=== PATIENT | female | born 1940 | race Caucasian/White ===

== ENCOUNTER → 2018-04-07 08:32 | Outpatient (CLI) | payer MEDICARE, SELFPAY ==
[2015-10-01 14:08] VITALS: BMI 43.1
[2018-04-07 11:02] LABS: Hematocrit 36.8 % (37-47); Mean Corp Hgb Conc 29.9 g/gl (32-36); Mean Corpuscular Hgb 29.4 pg (27.0-32.0); Mean Corpuscular Volume 98.4 fL (81-99); Mean Platelet Vol. 9.8 fl (6.2-12.0); Platelet Count 188 K/mm3 (150-450); RBC Distribution Width CV 15.9 % (11.6-14.6); RBC Distribution Width SD 55.6 fl (35.1-43.9); Red Blood Count 3.74 M/mm3 (4.2-5.4); Scan Indicated on CBC? Y/N NO; White Blood Count 6.9 K/mm3 (4.4-11.0)
[2018-04-07 11:28] LABS: ALB/GLOB Ratio 0.5 RATIO (0.9-2.4); AST(SGOT) 47 U/L (15-37); Alanine Aminotransfer ALT/SGPT 23 U/L (13-56); Albumin, Serum 2.6 g/dL (3.2-5.0); Alkaline Phosphatase 72 U/L (45-117); Anion Gap 6 (5-15); BUN 7 mg/dL (7-18); BUN/Creat Ratio 12.2 RATIO (10-20); Calcium,Total 8.6 mg/dL (8.5-10.1); Chloride 100 mmol/L (98-107); Cholesterol 137 mg/dL (200); Creatinine, Serum 0.57 mg/dL (0.55-1.02); EST Glomerular Filtration Rate 108 mL/min (>60); Est Glom Filt Rate - Afr Amer 131 mL/min (>60); Globulin 5.3 g/dL (2.2-4.2); Glucose 110 mg/dL (74-106); High Density Lipoprotein 32 mg/dL; Magnesium 1.8 mg/dL (1.6-2.6); Protein, Total 7.9 g/dL (6.4-8.2); Sodium Level 144 mmol/L (136-145); T4 Free Direct 1.26 ng/dL (0.76-1.46); Thyroid Stim Hormone (TSH) 4.98 uIU/mL (0.358-3.74); Triglycerides 164 mg/dL; Very Low Density Lipoprotein 33 mg/dL (5-40)
[2018-04-07 12:02] LABS: Hemoglobin A1c 5.7 % (4.2-6.3)
--- OUTSIDE RECORDS SUMMARY | 2018-06-11 15:42 | XMS RPT_ITS ---
:1940 Author Organization OH[facility] Care Team Providers Name Role Phone GERARD GTZ ([facility]) Attending Unavailable TALAMPAS, DIEGO D Referring Unavailable TALAMPAS, DIEGO D Referring Unavailable JOSE SORIA ([facility]) Attending Unavailable JOSE SORIA ([facility]) Referring Unavailable JOSE SORIA ([facility]) Referring Unavailable MAGDALENA GRIFFIN ([facility]) Attending Unavailable TALAMPAS, DIEGO D Referring Unavailable Talampas, Diego Attending Unavailable Talampas, Diego Primary Care Unavailable PROBLEMS PROBLEMS DATE TYPE CONDITION / CODE ATTENDING STATUS SOURCE 04/07/2018 Unknown E11.9 - Type 2 Talampas, Diego Active [facility] diabetes mellitus [facility] without complications Hospital / E11.9(ICD-10) Repository 04/07/2018 Unknown E03.9 - Talampas, Diego Active [facility] Hypothyroidism, Community unspecified / Hospital E03.9(ICD-10) Repository 04/07/2018 Unknown E78.1 - Pure Talampas, Diego Active [facility] hyperglyceridemia / Community E78.1(ICD-10) Hospital Repository 11/03/2017 Active Encounter for NA Active [facility] screening for Clinic Main malignant neoplasm of [place] colon / Z12.11(ICD-10) Repository 10/25/2017 Active Abnormal results of NA Active [facility] liver function studies Clinic Main / R94.5(ICD-10) [place] Repository 10/25/2017 Active Unknown / UNK(Unknown) JOSE SORIA Active [facility] ([facility]) Clinic Main [place] Repository 10/05/2017 Active Other disorders of NA Active [place] plasma-protein [facility] Main metabolism, not [place] elsewhere classified / Repository E88.09(ICD-10) 01/01/2015 Active Essential (primary) NA Active [place] hypertension / Clinic Main I10(ICD-10) [place] Repository 08/09/2013 Active Neuralgia and NA Active [place] neuritis, unspecified Clinic Main / M79.2(ICD-10) [place] Repository 08/09/2013 Active Fibromyalgia / NA Active [place] M79.7(ICD-10) Clinic Main [place] Repository 12/29/2010 Active Pure hyperglyceridemia NA Active [place] / E78.1(ICD-10) Clinic Main [place] Repository 04/19/2017 Active Other fdc NA Active [place] (current) drug therapy Clinic Main / Z79.899(ICD-10) [place] Repository 04/19/2017 Active Type 2 diabetes NA Active [place] mellitus without Clinic Main complications / [place] E11.9(ICD-10) Repository PROCEDURES PROCEDURES No Procedure Records FoundRESULTS RESULTS CBC-COMPLETE BLOOD CNT Collected: 04/07/2018 Status: F Source: [place] NO DIFF 9:30 AM [facility] [place] REPOSITORY TYPE CODE TESTS RESULT OUT OF RANGE REFERENCE UNITS LAB L100.1000 4.4-11.0 K/mm3 Normal WBC 6.9 LAB L100.1200 4.2-5.4 M/mm3 Low RBC 3.74 LAB L100.1300 12.0-15.0 g/dl Low HGB 11.0 LAB L100.1400 37-47 % Low HCT 36.8 LAB L100.1500 81-99 fL Normal MCV 98.4 LAB L100.1600 27.0-32.0 pg Normal MCH 29.4 LAB L100.1700 32-36 g/gl Low MCHC 29.9 LAB L100.1810 11.6-14.6 % High RDW CV 15.9 LAB L100.1820 35.1-43.9 fl High RDW SD 55.6 LAB L100.1900 150-450 K/mm3 Normal PLT 188 LAB L100.2000 6.2-12.0 fl Normal MPV 9.8 Performed By: #### L100.0500 #### [facility] [address] [place], [address] COMPREHENSIVE METABOLIC Collected: 04/07/2018 Status: F Source: JONEL PROFIL 9:30 AM [facility] [place] REPOSITORY TYPE CODE TESTS RESULT OUT OF RANGE REFERENCE UNITS LAB L501.0100 74-106 mg/dL High GLU 110 Result Comment: Fasting Glucose result from 100 to 125 mg/dL suggests IMPAIRED HOMEOSTASIS per A.D.A. criteria. Please note revised GLUCOSE reference range effective 2017. LAB L501.1000 7-18 mg/dL Normal BUN 7 LAB L501.1100 0.55-1.02 mg/dL Normal CREAT,SERUM 0.57 Result Comment: The validity of the calculated GFR AND GFRAA in patients over 70 years has not been determined. Clinical correlation is essential. LAB L501.1110 >60 mL/min Normal EST GFR 108 Result Comment: Non- GFR Calc LAB L501.1115 >60 mL/min Normal EST GFR - AA 131 Result Comment: GFR Calc LAB L501.1300 10-20 RATIO Normal BUN/CRE 12.2 LAB L501.1500 6.4-8.2 g/dL T Normal PROT 7.9 LAB L501.1800 3.2-5.0 g/dL Low ALB 2.6 LAB L501.1950 2.2-4.2 g/dL High GLOB 5.3 LAB L501.2000 0.9-2.4 RATIO Low A/G 0.5 LAB L501.2200 8.5-10.1 mg/dL CA Normal 8.6 LAB L501.4100 15-37 U/L High AST 47 LAB L501.4305 45-117 U/L Normal ALK P 72 LAB L501.4405 13-56 U/L Normal ALT 23 LAB L501.4600 0.20-1.00 mg/dL T Normal BILI 0.30 LAB L501.5300 136-145 mmol/L NA Normal 144 LAB L501.5600 3.5-5.1 mmol/L K Normal 4.0 LAB L501.5900 98-107 mmol/L CL Normal 100 LAB L501.6100 21.0-32.0 mmol/L High CO2 38.0 LAB L501.6200 5-15 Normal GAP 6 Performed By: #### L500.4050, L500.4100, L501.5200, L501.9520, L506.0400 #### [facility] [address] [place], [address] LIPID PROFILE Collected: 04/07/2018 Status: F Source: JONEL 9:30 AM [facility] REPOSITORY TYPE CODE TESTS RESULT OUT OF RANGE REFERENCE UNITS LAB L501.4900 200 mg/dL Normal CHOL 137 Result Comment: <200 mg/dL Desirable 200-240 mg/dL Borderline >240 mg/dL High Risk LAB L501.5000 mg/dL Normal TRIG 164 Result Comment: The drugs N-Acetylcysteine and Metamizole may falsely depress this assay. Serum Triglycerides Reference Interval Normal <150 mg/dL Borderline high 150 - 199 mg/dL High 200 - 499 mg/dL Very High > or = 500 mg/dL LAB L501.6400 mg/dL Low HDL 32 Result Comment: The drugs N-Acetylcysteine and Metamizole may falsely depress this assay. Reference Range HDL <40 mg/dL Low HDL Cholesterol HDL >or= 60 mg/dL High HDL Cholesterol LAB L501.6500 0-130 mg/dL Normal LDL 72 LAB L501.6600 5-40 mg/dL Normal VLDL 33 Performed By: #### L500.4050, L500.4100, L501.5200, L501.9520, L506.0400 #### [facility] [address] [place], [place], [id number] MAGNESIUM Collected: 04/07/2018 Status: F Source: JONEL 9:30 AM [facility] [place] REPOSITORY TYPE CODE TESTS RESULT OUT OF RANGE REFERENCE UNITS LAB L501.5200 1.6-2.6 mg/dL Normal MG 1.8 Performed By: #### L500.4050, L500.4100, L501.5200, L501.9520, L506.0400 #### [facility] [address] [place], [place], [address] THYROID STIM HORMONE Collected: 04/07/2018 Status: F Source: JONEL (TSH) 9:30 AM [facility] [place] REPOSITORY TYPE CODE TESTS RESULT OUT OF RANGE REFERENCE UNITS LAB L501.9520 0.358-3.74 uIU/mL High TSH 4.98 Performed By: #### L500.4050, L500.4100, L501.5200, L501.9520, L506.0400 #### [facility] [address] [place], [address] T4 FREE DIRECT Collected: 04/07/2018 Status: F Source: KENT 9:30 AM [facility] [place] REPOSITORY TYPE CODE TESTS RESULT OUT OF RANGE REFERENCE UNITS LAB L506.0400 0.76-1.46 ng/dL Normal T4 FREE 1.26 DIRECT Performed By: #### L500.4050, L500.4100, L501.5200, L501.9520, L506.0400 #### [facility] [address] [place], [address] HEMOGLOBIN A1C Collected: 04/07/2018 Status: F Source: [place] 9:30 AM [facility] [place] REPOSITORY TYPE CODE TESTS RESULT OUT OF RANGE REFERENCE UNITS LAB L501.9985 4.2-6.3 % Normal HGB A1C 5.7 Performed By: #### L501.9985 #### [facility] [address] [place], [address] CNPTOUTREACH Observed: 03/28/2018 Status: COMPLETED Source: [place] 12:00 AM [facility] REPOSITORY Patient Outreach (FAMPST) ALEA ANDRADE ([id number]) 1940 F Date Time Provider Department 03/28/18 DIEGO CRISOSTOMO FAMPST During your visit today, we recorded the following information about you: Allergies As of Date: 03/28/2018 Noted Allergy Reaction ADHESIVE TAPE-SILICONES 05/26/2005 ADVAIR DISKUS (FLUTICASONE-SALMET*05/21/2014 14 - Other: See Comments Comments: vision difficulties; aggravated ocular migraines ASA (SALICYLATES) 04/16/2005 14 - Other: See Comments Comments: sensitive- she bleeds easily FENTANYL 03/18/2011 2 - Rash 9 - Itching Comments: Headaches, increased pain Roca Oxygen Products [Other] 02/25/2011 7 - Swelling Comments: Headaches IVORY SOAP (SOAP) 05/08/2013 14 - Other: See Comments Comments: Eyelid irritation and conjunctivitis (drainage and runny eyes) LATEX 11/08/2006 Comments: Sensitive PAXIL (PAROXETINE HCL) 04/19/2005 1 - Mental Status Change Comments: suicidal PENICILLINS 04/16/2005 2 - Rash Comments: generalized swelling PRILOSEC (OMEPRAZOLE) 08/23/2008 5 - Intolerance 8 - GI Upset Comments: Headache - pt. States okay since not red dye anymore RED DYE 08/19/2008 Comments: Gi upset, makes throat raw.( did not have allergy testing tho) SULFA (SULFONAMIDE ANTIBIOTICS) 01/15/2009 7 - Swelling Comments: Took bactrim without problem zithromycin [Other] 04/19/2005 Comments: swelling, rash Date Reviewed: 12/26/2017 Reviewed by: Eliza Connell LPN - Fully Assessed Visit Diagnosis:Medication management [Z79.899] Order(s):ALBUMIN/CREAT RATIO RND UR [SQUACR] Order #: [id number] FUTURE HGB A1C [UJHQU6F] Order #: [id number] FUTURE Prescriptions as of 03/28/2018 Sig: OXYCODONE 5 MG TABLET Take 1-2 tablets by mouth thr* HYDROCODONE 5 MG-ACETAMINOPHE* Take 1 tablet by mouth twice * LORAZEPAM 0.5 MG TABLET Take 1 tablet by mouth once d* NYSTATIN 100,000 UNIT/GRAM TO* Apply 1 application to affect* TRIAMCINOLONE ACETONIDE 0.1 %* Apply 1 application to affect* MUPIROCIN 2 % TOPICAL CREAM Apply to affected skin twice * GABAPENTIN 600 MG TABLET TAKE 1 AND 1/2 (ONE AND ONE-GAURANG* LEVOTHYROXINE 137 MCG TABLET Take 1 tablet by mouth daily * COMPOUNDED PRESCRIPTION For [facility]. Nubia* COMPOUNDED PRESCRIPTION For [facility]. Plea* CALCIUM CITRATE-VITAMIN D3 31* Take 1 tablet by mouth three * POTASSIUM CHLORIDE ER 10 MEQ * Take 2 tablets by mouth three* METFORMIN 500 MG TABLET Take 1 tablet by mouth twice * BLOOD SUGAR DIAGNOSTIC STRIPS Test Blood Sugars twice a day* BLOOD-GLUCOSE METER KIT Test Blood Sugars twice a day* LANCETS 33 GAUGE Test blood sugar(s) twice a d* SERTRALINE 100 MG TABLET Take 1 tablet by mouth twice * MOMETASONE-FORMOTEROL HFA 200* Inhale 2 Puffs as instructed * TRAZODONE 150 MG TABLET Take 1 tablet by mouth daily * OMEPRAZOLE 40 MG CAPSULE,DUNIA* Take 1 capsule by mouth once * LEVALBUTEROL HFA 45 MCG/ACTUA* Inhale 1-2 Puffs as instructe* BENZONATATE 100 MG CAPSULE Take 1 capsule by mouth three* LORATADINE-PSEUDOEPHEDRINE ER* Take 1 tablet by mouth once d* COMPOUNDED PRESCRIPTION Diabetic shoes Diagnoses: D* MISCELLANEOUS MEDICAL SUPPLY * Knee hi JONNY hose, Latex free * LISINOPRIL 2.5 MG TABLET Take 1 tablet by mouth once d* LEVALBUTEROL 1.25 MG/3 ML GILLIAN* Use 1 Ampule via nebulizer ev* CLINDAMYCIN PHOSPHATE 1 % TOP* Apply 1 application to affect* MOMETASONE 0.1 % TOPICAL CREAM Apply 1 application to affect* OXYBUTYNIN CHLORIDE 5 MG TABL* Take 1 tablet by mouth twice * COMPOUNDED PRESCRIPTION Please add humidifer to patie* FLUTICASONE 50 MCG/ACTUATION * Use 2 Sprays in each nostril * MULTIVITAL ORAL Take by mouth. SUPER B COMPLEX ORAL Take by mouth once daily. MOMETASONE-FORMOTEROL HFA 200* Inhale 2 Puffs as instructed * COMPOUNDED PRESCRIPTION Diabetic Shoes Diagnosis: * COMPOUNDED PRESCRIPTION Diabetic shoes Diagnosis: 25* FUROSEMIDE 80 MG TABLET Take 0.5-1 tablets by mouth o* GUAIFENESIN ER 600 MG TABLET,* Take 2 tablets by mouth twice* COMPOUNDED PRESCRIPTION Ketoprofen 5%, Amitriptyline * EPINEPHRINE 0.3 MG/0.3 ML INJ* Inject intramuscularly. USE * COMPOUNDED PRESCRIPTION NEBULIZER FOR HOME USE. DX: * COMPOUNDED PRESCRIPTION Firm Mattress for hospital be* * MULTIVITAMIN TABLET Take 1 tablet by mouth once d* * NIACIN ORAL Take 1 tablet by mouth once d* COMPOUNDED PRESCRIPTION Hospital bed ( MEGAN, DJD b* COMPOUNDED PRESCRIPTION For [facility]. Nubia* COMPOUNDED PRESCRIPTION Order for [facility]: Disco* COMPOUNDED PRESCRIPTION Add humidification to oxygen * COMPOUNDED PRESCRIPTION Heavy duty lift chair, ( pt w* * OMEGA-3 FATTY ACIDS 1,000 MG * Take 1,000 mg by mouth twice * COMPOUNDED PRESCRIPTION Scooter Needs new one since* COMPOUNDED PRESCRIPTION C-Flex nasal CPCP mask with h* Problem List As Of Date 03/28/2018 Noted Resolved Diabetes mellitus type 2, controlled, without c*INVALID FOR* More... Depressive disorder, not elsewhere classified [*INVALID FOR* More... MEGAN (obstructive sleep apnea) [G47.33] INVALID FOR* More... Essential hypertension [I10] INVALID FOR* More... Hypothyroidism [E03.9] INVALID FOR* More... Esophageal reflux [K21.9] INVALID FOR* More... Restless Legs Syndrome [G25.89] INVALID FOR* More... Allergic rhinitis, cause unspecified [J30.9] INVALID FOR* More... Primary osteoarthritis involving multiple joint*INVALID FOR* More... Rheumatoid arthritis [M06.9] INVALID FOR*12/26/2010 PMH - PAST MEDICAL HISTORY OF 08/09/2013 More... LUMBOSACRAL SPONDYLOSIS [M47.817] INVALID FOR* Morbid obesity [E66.01] INVALID FOR* More... Sprain of lumbar region [S33.5XXA] INVALID FOR*08/09/2013 Pure hyperglyceridemia [E78.1] More... Insomnia, unspecified [G47.00] INVALID FOR*08/09/2013 Venous stasis edema, legs [R60.9] More... Cellulitis and abscess of leg, except foot [L03* 08/09/2013 More... CLUSTER HEADACHE SYN NOS [G44.009] INVALID FOR* More... CONGENITAL PES PLANUS [Q66.50] INVALID FOR* Fibromyalgia [M79.7] More... Acute postoperative pain [G89.18] INVALID FOR*08/09/2013 More... Left video-assisted thoracoscopic surgery upper*INVALID FOR* More... D/C planning [Z71.89] INVALID FOR*08/09/2013 More... DVT prophylaxis [JUA9200] INVALID FOR*08/09/2013 More... R/o pressure ulcer on nose [L89.899] INVALID FOR*08/09/2013 More... 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 S/P lobectomy of lung, JOSE [Z90.2] INVALID FOR* Drug induced neutropenia [D70.2] INVALID FOR*05/20/2011 History of lung cancer [Z85.118] INVALID FOR* More... Neuropathic pain [M79.2] INVALID FOR* More... Pain in joint, lower leg [M25.569] INVALID FOR* Anxiety [F41.9] INVALID FOR* More... Insomnia [G47.00] INVALID FOR* More... Hypokalemia [E87.6] INVALID FOR*11/14/2013 Lung cancer (HCC) [C34.90] INVALID FOR* Acquired bilateral hammer toes [M20.41, M20.42] INVALID FOR* Neuralgia, neuritis, and radiculitis, unspecifi*INVALID FOR* Weakness [R53.1] INVALID FOR* Difficulty walking [R26.2] INVALID FOR* Encounter Status:Closed by [employer], PRODUSER on 04/12/18 PROGRESS Observed: 12/26/2017 Status: COMPLETED Source: [place] 3:50 PM [facility] REPOSITORY HNO ID: [id number] Author: Magdalena Bland) Elias Service: (none) Author Type: Nurse Specialist Type: Progress Notes Filed: 12/26/2017 4:15 PM Note Text: OUTPATIENT VISIT DATE December 26, 2017 OUTPATIENT VISIT TYPE ESTABLISHED PRIMARY CARE PHYSICIAN: Diego Crisostomo MD CHIEF COMPLAINT: Patient presents with: F/U 3 Month Oxygen Imm/Inj: Flu Vaccine History of Present Illness: Alea Andrade is a 77 year old female who was last seen 10/2017 in . She has been seen in the past for ACTIVE PROBLEM LIST Diabetes Mellitus Type 2, Controlled, Without Complications (Hcc) Depressive Disorder, Not Elsewhere Classified Megan (Obstructive Sleep Apnea) Essential Hypertension Hypothyroidism Esophageal Reflux Restless Legs Syndrome Allergic Rhinitis, Cause Unspecified Primary Osteoarthritis Involving Multiple Joints Lumbosacral Spondylosis Without Myelopathy Morbid Obesity (Hcc) Pure Hyperglyceridemia Venous stasis edema, legs Cluster Headache Syndrome, Unspecified Congenital Pes Planus Fibromyalgia Left video-assisted thoracoscopic surgery upper lobectomy, lymphadenectomy Secondary and Unspecified 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 Presents today for follow up of hypoxia. She is using 3 LNC 11/10. Since the last visit, she states that she's been her usual state of health. She reports limited mobility. Her son helps her with all daily activities. She has a hospital bed that she states that for most of the day. She reports being able to get up to a chair with assistance but takes about 30 minutes and she often avoids doing this due to all of the effort required. Very difficult for her to do much more than transfer due to problems with her feet. She reports that wo family members claims sorter her to help get her to her appointment today. She reports shortness of breath with any exertion at all. Currently without cough.. Becomes hypoxic when she removes oxygen at rest for more than a couple of minutes. , lips become blue at home. No recent hospital or ED visits. No new medical problems or medications. Able to obtain medications. No problems with taking medications or note side effects. PAST MEDICAL HISTORY Diagnosis Date - Allergic rhinitis, cause unspecified 04/20/2005 - Asthma - Cellulitis and abscess of leg, except foot Recurrent episodes of cellulitis related to venous stasis - COPD (chronic obstructive pulmonary disease) ([facility]) - Depressive disorder, not elsewhere classified 04/20/2005 - Diabetes mellitus without mention of complication Diabetes mellitus - Esophageal reflux 04/20/2005 - Fibromyalgia - Generalized osteoarthrosis, unspecified site 04/20/2005 - Oxygen dependent - Peptic ulcer, unspecified site, unspecified as acute or chronic, without mention of hemorrhage, perforation, or obstruction 1997 bleeding ulcers 1997 - PMH - PAST MEDICAL HISTORY OF narcolepsy and sleep apnea--recent sleep study 2009; CPAP at 13 (Dr. Mackenzie) - Pure hyperglyceridemia Slightly elevated TG; low HDL - Restless Legs Syndrome 04/20/2005 - Rheumatoid arthritis(714.0) 04/20/2005 - S/P lobectomy of lung 01/25/2011 - Type II or unspecified type diabetes mellitus without mention of complication, not stated as uncontrolled 04/20/2005 - Unspecified asthma(493.90) 04/20/2005 - Unspecified essential hypertension 04/20/2005 - Unspecified hypothyroidism 04/20/2005 - Venous stasis edema, legs PAST SURGICAL HISTORY Procedure Laterality Date - APPENDECTOMY 1960 - PAST SURGICAL HISTORY OF 1974 uterus and one ovary removed - REMOVAL ADENOIDS,PRIMARY,<12 Y/O Adenoidectomy - REMOVAL OF TONSILS,<12 Y/O Tonsillectomy - REPAIR UMBILICAL LEX,<5Y/O,REDUC 1992 Hernia repair, umbilical FAMILY HISTORY Problem Relation Age of Onset - Alzheimer's Disease Mother - Diabetes Paternal Grandmother - Cervical Cancer Sister - Diabetes Sister Social History Substance Use Topics - Smoking status: Former Smoker Packs/day: 1.50 Years: 18.00 Types: Cigarettes Quit date: 03/21/1980 - Smokeless tobacco: Never Used - Alcohol use No ALLERGIES: ALLERGIES Allergen Reactions - Adhesive Tape-Silic* - Advair Diskus [Flut* Other: See Comments vision difficulties; aggravated ocular migraines - Asa [Salicylates] Other: See Comments sensitive- she bleeds easily - Fentanyl Rash, Itching Headaches, increased pain - Roca Oxygen Produ* Swelling Headaches - Ivory Soap [Soap] Other: See Comments Eyelid irritation and conjunctivitis (drainage and runny eyes) - Latex Sensitive - Paxil [Paroxetine H* Mental Status Change suicidal - Penicillins Rash generalized swelling - Prilosec [Omeprazol* Intolerance, GI Upset Headache - pt. States okay since not red dye anymore - Red Dye Gi upset, makes throat raw.( did not have allergy testing tho) - Sulfa (Sulfonamide * Swelling Took bactrim without problem - Zithromycin [Other] swelling, rash MEDICATIONS LORazepam (ATIVAN) 0.5 mg tab Take 1 tablet by mouth once daily as needed (anxiety) for up to 30 days. oxyCODONE IR (ROXICODONE) 5 mg immediate release tablet Take 1-2 tablets by mouth three times daily as needed for Pain for up to 30 days.Earliest Fill Date: 12/19/17 HYDROcodone-acetaminophen (NORCO) 5-325 mg per tablet Take 1 tablet by mouth twice daily as needed for up to 30 days. For moderate pain (not severe to need oxycodone).Earliest Fill Date: 12/19/17 mupirocin (BACTROBAN) 2 % cream Apply to affected skin twice daily (May substitute with generic equivalent.; ointment can be given if cream note covered) triamcinolone acetonide (KENALOG) 0.1 % cream Apply 1 application to affected area three times daily. (80 gram tube) levothyroxine (SYNTHROID) 137 mcg tablet Take 1 tablet by mouth daily before breakfast. nystatin (MYCOSTATIN) powder Apply 1 application to affected area four times daily. COMPOUNDED PRESCRIPTION For [facility]. Patient needs large oxygen tanks for within the home, and portable tanks for when she is out. Pulse ox 90% on 3L in office. Dx: s/p lobectomy of lung JOSE v45.89, lung cancer 162.3. COMPOUNDED PRESCRIPTION For [facility]. Please dispense all attachment supplies for oxygen. gabapentin (NEURONTIN) 600 mg tablet TAKE 1 AND 1/2 (ONE AND ONE-HALF) TABLETS BY MOUTH THREE TIMES DAILY Calcium Citrate-Vitamin D3 (CITRACAL+D) 315-250 mg-unit tab Take 1 tablet by mouth three times daily with meals. potassium chloride (K-TAB) 10 mEq tablet Take 2 tablets by mouth three times daily. As directed metFORMIN (GLUCOPHAGE) 500 mg tablet Take 1 tablet by mouth twice daily. blood sugar diagnostic (ONETOUCH ULTRA TEST) test strip Test Blood Sugars twice a day DX: E11.9 Blood-Glucose Meter (ONETOUCH ULTRAMINI) monitoring kit Test Blood Sugars twice a day DX: E11.9 lancets (ONE TOUCH DELICA) 33 gauge misc Test blood sugar(s) twice a day. Dx: Type 2 DM - Controlled E11.9 Insulin: No sertraline (ZOLOFT) 100 mg tablet Take 1 tablet by mouth twice daily. traZODone (DESYREL) 150 mg tablet Take 1 tablet by mouth daily at bedtime. Omeprazole 40 mg capsule Take 1 capsule by mouth once daily. levalbuterol tartrate HFA (XOPENEX HFA) 45 mcg/actuation inhaler Inhale 1-2 Puffs as instructed every 4 hours as needed. benzonatate (TESSALON PERLE) 100 mg capsule Take 1 capsule by mouth three times daily as needed. loratadine-pseudoephedrine ER (LORATA-D) 10-240 mg Tb24 Take 1 tablet by mouth once daily as needed. COMPOUNDED PRESCRIPTION Diabetic shoes Diagnoses: DM foot deformity and poor circulation. M21.969, R09.89. Dispense 1 pair of [facility] Knee hi JONNY hose, Latex free (R60.9) Venous stasis edema, legs lisinopril 2.5 mg tablet Take 1 tablet by mouth once daily. levalbuterol (XOPENEX) 1.25 mg/3 mL nebulizer solution Use 1 Ampule via nebulizer every 4 hours as needed for Wheezing/Shortness of Breath. clindamycin (CLEOCIN) 1 % external solution Apply 1 application to affected area four times daily as needed. Dispense 1 bottle, not 1ml mometasone (ELOCON) 0.1 % cream Apply 1 application to affected area once daily. For scalp; Rinse the next morning after applying at bedtime. oxybutynin (DITROPAN) 5 mg tablet Take 1 tablet by mouth twice daily. COMPOUNDED PRESCRIPTION Please add humidifer to patient's oxygen. Dx; z99.81, z90.2, j44.9 fluticasone (FLONASE) 50 mcg/actuation nasal spray Use 2 Sprays in each nostril once daily. Rinse mouth after use. FA/MV,CA,IRON,MIN/LYCOPENE/LUT (MULTIVITAL ORAL) Take by mouth. mometasone-formoterol (DULERA) 200-5 mcg/actuation inhaler Inhale 2 Puffs as instructed twice daily. COMPOUNDED PRESCRIPTION Diabetic Shoes Diagnosis: DM type 2 250.00, Pes Planus 754.61, Neuropathic pain 729.2, Hammer toes 735.4 COMPOUNDED PRESCRIPTION Diabetic shoes Diagnosis: 250.00 furosemide (LASIX) 80 mg tablet Take 0.5-1 tablets by mouth once daily. as directed (last RX November 2013) guaiFENesin 600 mg 12 hr tablet Take 2 tablets by mouth twice daily as needed for Cold/Allergy Symptoms. COMPOUNDED PRESCRIPTION Ketoprofen 5%, Amitriptyline 2%, Gabapentin 2%, Lidocaine 5% EPINEPHrine (EPIPEN) 0.3 mg/0.3 mL (1:1,000) PnIj Inject intramuscularly. USE DIRECTED FOR ALLERGIC REACTION. SEEK EMERGENT MEDICAL CARE IMMEDIATELY AFTER USE. COMPOUNDED PRESCRIPTION NEBULIZER FOR HOME USE. DX: 493.90 asthma, h/o lung cancer, s/p lung lobectomyUse as directed COMPOUNDED PRESCRIPTION Firm Mattress for hospital bedDiagnoses: 782.3 Venous stasis edema, legs; V45.89 S/P lobectomy of lung, JOSE COMPOUNDED PRESCRIPTION Hospital bed ( MEGAN, DJD back, fibromyalgia) 729.1, 715.00, 721.3, 327.3)Would like 2 half rails on bed. wt is 316# COMPOUNDED PRESCRIPTION For [facility]. Patient needs large oxygen tanks for within the home, and portable tanks for when she is out. Dx: s/p lobectomy of lung JOSE v45.89, lung cancer 162.3. COMPOUNDED PRESCRIPTION Order for [facility]: Discontinue liquid O2 COMPOUNDED PRESCRIPTION Add humidification to oxygen through the concentratorDiagnosis: COMPOUNDED PRESCRIPTION Heavy duty lift chair, ( pt wt is 321 # ) 6 feet tall. ( 714.0 rheumatoid arthritis, 729.1 Fibromyalgia, having lung surgery and will need to sit upright post operatively, currently short of breath, ) COMPOUNDED PRESCRIPTION Scooter Needs new one since other one needs replaced. Diagnoses: 714.0,721.3,278.01,715.00 COMPOUNDED PRESCRIPTION C-Flex nasal CPCP mask with head gear and tubing supplies. zolpidem (AMBIEN) 10 mg tab TAKE 1 TABLET EVERY DAY AT BEDTIME NEEDED for insomnia. mometasone-formoterol (DULERA) 200-5 mcg/actuation inhaler Inhale 2 Puffs as instructed twice daily. VITAMIN B COMPLEX (SUPER B COMPLEX ORAL) Take by mouth once daily. multivitamin tablet Take 1 tablet by mouth once daily. NIACIN ORAL Take 1 tablet by mouth once daily. omega-3 fatty acids 1,000 mg ORAL Cap Take 1,000 mg by mouth twice daily. REVIEW OF SYSTEMS: GENERAL: Negative for: Weight loss or gain, Fever or Chills, Weakness and Sleep difficulties. Physical Examination: BP 126/60 Pulse 96 SpO2 87% at rest on room air BP w/Orthostatic Vitals Date and Time Orthostatic BP Orthostatic Pulse BP Pulse BP Position BP Site BP Cuff Size 12/26/17 1534 -- -- 126/60 -- Sitting Left Arm Large Adult 12/26/17 1528 -- -- 152/80 96 Sitting Left Arm Large Adult General appearance: Well appearing, alert, SOB when oxygen is removed, obese, well-hydrated, well nourished. Seated in wheelchair, has 3LNC Skin: Skin color, texture, turgor normal, no suspicious rashes or lesions Lungs: Lung sounds are decreased but no wheezing, rhonchi, rales appreciated on exam Heart: RRR without murmur, gallop, or rubs. Reviewed chart, outside records, tests I personally interviewed, confirmed and edited the above information if obtained by others. TESTING: Glucose (mg/dL) Date Value 10/05/2017 147 Potassium (mmol/L) Date Value 10/05/2017 4.6 Sodium (mmol/L) Date Value 10/05/2017 140 Chloride (mmol/L) Date Value 10/05/2017 92 CO2 (mmol/L) Date Value 10/05/2017 30 Creatinine (mg/dL) Date Value 10/05/2017 0.65 BUN (mg/dL) Date Value 10/05/2017 8 Anion Gap (mmol/L) Date Value 10/05/2017 18 Calcium (mg/dL) Date Value 10/05/2017 10.2 Glucose (mg/dL) Date Value 10/05/2017 147 Potassium (mmol/L) Date Value 10/05/2017 4.6 Sodium (mmol/L) Date Value 10/05/2017 140 Chloride (mmol/L) Date Value 10/05/2017 92 CO2 (mmol/L) Date Value 10/05/2017 30 Creatinine (mg/dL) Date Value 10/05/2017 0.65 BUN (mg/dL) Date Value 10/05/2017 8 Anion Gap (mmol/L) Date Value 10/05/2017 18 Calcium (mg/dL) Date Value 10/05/2017 10.2 Protein, Total (g/dL) Date Value 10/25/2017 7.7 Albumin (g/dL) Date Value 10/25/2017 3.4 Bilirubin, Total (mg/dL) Date Value 10/25/2017 0.2 Alkaline Phosphatase (U/L) Date Value 10/25/2017 66 AST (U/L) Date Value 10/25/2017 46 ALT (U/L) Date Value 10/25/2017 26 Hemoglobin (g/dL) Date Value 07/26/2016 11.9 Hematocrit (%) Date Value 07/26/2016 39.0 WBC (k/uL) Date Value 07/26/2016 8.49 Cholesterol, Total (mg/dL) Date Value 10/05/2017 153 HDL Cholesterol (mg/dL) Date Value 10/05/2017 39 LDL Cholesterol (mg/dL) Date Value 10/05/2017 79 Triglyceride (mg/dL) Date Value 10/05/2017 175 Hemoglobin A1C Date Value Ref Range Status 10/05/2017 5.7 (H) 4.3 - 5.6 % Final 04/19/2017 5.9 (H) 4.3 - 5.6 % Final 12/06/2016 Test sent to [facility]. 4.0 - 6.0 % Final Comment: Account Credited HIDE 07/26/2016 5.8 (H) 4.3 - 5.6 % Final Comment: [place] [employer] guidelines indicate that patients with HgbA1c in the range 5.7-6.4% are at increased risk for development of diabetes, and intervention by lifestyle modification may be beneficial. HgbA1c greater or equal to 6.5% is considered diagnostic of diabetes. 11/26/2015 5.8 (H) 4.3 - 5.6 % Final Comment: [place] [employer] guidelines indicate that patients with HgbA1c in the range 5.7-6.4% are at increased risk for development of diabetes, and intervention by lifestyle modification may be beneficial. HgbA1c greater or equal to 6.5% is considered diagnostic of diabetes. Ejection Fraction - Result: 60 % Date: 12/08/2010 Time: 15:04:00 IMPRESSION: Ms. Andrade is a 77 year old woman with history of lung cancer, prior lobectomy, severe restrictive lung disease who presents for hypoxia follow up. She continues to require oxygen at rest, at 87%spO2 at rest on room tiara in office today. After my examination and review of data, I make the following recommendations. PLAN AND RECOMMENDATIONS: ASSESSMENT/PLAN: 1. Need for vaccination - ICD9: V05.9, ICD10: Z23 (primary diagnosis) - INFLUENZA SEASONAL HIGH DOSE AGE 65+ 2. History of lung cancer - ICD9: V10.11, ICD10: Z85.118 3. S/P lobectomy of lung - ICD9: V45.89, ICD10: Z90.2 4. Restrictive lung disease - ICD9: 518.89, ICD10: J98.4 5. Severe persistent asthma without complication - ICD9: 493.90, ICD10: J45.50 Continue with medications unchanged Continue with 3 L oxygen nasal cannula unchanged Will send copy of note to [facility] today per request. Advised to go to ER if develops chest pain, shortness of breath, or severe worsening of symptoms. Discussed risks, benefits, alternatives, and potential side effects of medications. Ms. Andrade expressed understanding and agreed with the plan. Magdalena Griffin APRN.CHUCKING MACHINE SET UP OPERATOR PROGRESS Observed: 12/26/2017 Status: COMPLETED Source: [place] 3:[address] [facility] [place] REPOSITORY O ID: [id number] Author: Eliza Connell LPN Service: (none) Author Type: (none) Type: Progress Notes Filed: 12/26/2017 4:15 PM Note Text: 77 year old female here for INACTIVATED INFLUENZA VACCINE. Season Patient is identified by name and date of : Yes [] CONTRAINDICATIONS color enhanced section Age less than 6 months? No Allergy to eggs, chicken, chicken feathers, or chicken dander? No Allergy to thimerosal (a preservative) or formaldehyde, gelatin? No History of severe reaction to any vaccine component or a previous dose of influenza vaccination? No History of Guillain-Centerbrook Syndrome within 6 weeks after a previous influenza vaccine? No Patient is not moderately or severely ill? No Current temperature greater or equal to 100.4F? No History of Bone Marrow Transplant prior 6 months or solid organ transplant in the past 3 months ? No History of fainting after a prior injection or medical procedure? No- ? If patient has fainted in the past, the CDC recommends sitting or lying down for 15 minutes after the vaccination. [] VERIFICATION color enhanced section Was the answer Yes for any of the above contraindications? No contraindications present. Acceptable to proceed with vaccine. Patient/guardian agrees the above answers are true to the best of their knowledge? Yes Flu vaccine information sheet given? Yes See immunization activity in [facility] for details of immunizations adminstered today. Patient age: [age] year old For The Flu Season 6-35 months old: Fluzone 0.25 ml - IM (Preservative Free) 3 years of age: Fluzone 0.5 ml - IM (Preservative Free) 3 years and older: Fluzone 0.5 ml- IM-(with Preservatives) 65+ years old: 2-49 years old Fluzone High-Dose 0.5 ml - IM (Preservative Free) FLUMIST- intranasal REMEMBER: If patient is less than 9 years of age and this is the first vaccine of Influenza to be received in any flu season, they should receive a second dose in one months time. CNOV Observed: 12/26/2017 Status: COMPLETED Source: [place] 3:00 PM [facility] REPOSITORY Office Visit (INTMWS) ALEA ANDRADE ([id number]) 1940 F Date Time Provider Department 12/26/17 3:00 PM MAGDALENA GRIFFIN (CHUCKING MACHINE SET UP OPERATOR) INTMWS During your visit today, we recorded the following information about you: Pulse Blood pressure 96/minute 126/60 Eliza Connell GINGER 12/26/2017 4:15 PM Signed 77 year old female here for INACTIVATED INFLUENZA VACCINE. [id number] Season Patient is identified by name and date of : Yes [] CONTRAINDICATIONS color enhanced section Age less than 6 months? No Allergy to eggs, chicken, chicken feathers, or chicken dander? No Allergy to thimerosal (a preservative) or formaldehyde, gelatin? No History of severe reaction to any vaccine component or a previous dose of influenza vaccination? No History of Guillain-Center[place] Syndrome within 6 weeks after a previous influenza vaccine? No Patient is not moderately or severely ill? No Current temperature greater or equal to 100.4F? No History of Bone Marrow Transplant prior 6 months or solid organ transplant in the past 3 months ? No History of fainting after a prior injection or medical procedure? No- ? If patient has fainted in the past, the CDC recommends sitting or lying down for 15 minutes after the vaccination. [] VERIFICATION color enhanced section Was the answer Yes for any of the above contraindications? No contraindications present. Acceptable to proceed with vaccine. Patient/guardian agrees the above answers are true to the best of their knowledge? Yes Flu vaccine information sheet given? Yes See immunization activity in [facility] for details of immunizations adminstered today. Patient age: [age] year old For The [id number] Flu Season 6-35 months old: Fluzone 0.25 ml - IM (Preservative Free) 3 years of age: Fluzone 0.5 ml - IM (Preservative Free) 3 years and older: Fluzone 0.5 ml- IM-(with Preservatives) 65+ years old: 2-49 years old Fluzone High-Dose 0.5 ml - IM (Preservative Free) FLUMIST- intranasal REMEMBER: If patient is less than 9 years of age and this is the first vaccine of Influenza to be received in any flu season, they should receive a second dose in one months time. Magdalena Griffin APRN.CHUCKING MACHINE SET UP OPERATOR 12/26/2017 4:15 PM Signed OUTPATIENT VISIT DATE December 26, 2017 OUTPATIENT VISIT TYPE ESTABLISHED PRIMARY CARE PHYSICIAN: Diego Crisostomo MD CHIEF COMPLAINT: Patient presents with: F/U 3 Month Oxygen Imm/Inj: Flu Vaccine History of Present Illness: Alea Andrade is a 77 year old female who was last seen 10/2017 in . She has been seen in the past for ACTIVE PROBLEM LIST Diabetes Mellitus Type 2, Controlled, Without Complications (Hcc) Depressive Disorder, Not Elsewhere Classified Megan (Obstructive Sleep Apnea) Essential Hypertension Hypothyroidism Esophageal Reflux Restless Legs Syndrome Allergic Rhinitis, Cause Unspecified Primary Osteoarthritis Involving Multiple Joints Lumbosacral Spondylosis Without Myelopathy Morbid Obesity (Hcc) Pure Hyperglyceridemia Venous stasis edema, legs Cluster Headache Syndrome, Unspecified Congenital Pes Planus Fibromyalgia Left video-assisted thoracoscopic surgery upper lobectomy, lymphadenectomy Secondary and Unspecified 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 Presents today for follow up of hypoxia. She is using 3 LNC 11/10. Since the last visit, she states that she's been her usual state of health. She reports limited mobility. Her son helps her with all daily activities. She has a hospital bed that she states that for most of the day. She reports being able to get up to a chair with assistance but takes about 30 minutes and she often avoids doing this due to all of the effort required. Very difficult for her to do much more than transfer due to problems with her feet. She reports that wo family members claims sorter her to help get her to her appointment today. She reports shortness of breath with any exertion at all. Currently without cough.. Becomes hypoxic when she removes oxygen at rest for more than a couple of minutes. , lips become blue at home. No recent hospital or ED visits. No new medical problems or medications. Able to obtain medications. No problems with taking medications or note side effects. PAST MEDICAL HISTORY Diagnosis Date - Allergic rhinitis, cause unspecified 04/20/2005 - Asthma - Cellulitis and abscess of leg, except foot Recurrent episodes of cellulitis related to venous stasis - COPD (chronic obstructive pulmonary disease) ([facility]) - Depressive disorder, not elsewhere classified 04/20/2005 - Diabetes mellitus without mention of complication Diabetes mellitus - Esophageal reflux 04/20/2005 - Fibromyalgia - Generalized osteoarthrosis, unspecified site 04/20/2005 - Oxygen dependent - Peptic ulcer, unspecified site, unspecified as acute or chronic, without mention of hemorrhage, perforation, or obstruction 1997 bleeding ulcers 1997 - PMH - PAST MEDICAL HISTORY OF narcolepsy and sleep apnea--recent sleep study 2009; CPAP at 13 (Dr. Mackenzie) - Pure hyperglyceridemia Slightly elevated TG; low HDL - Restless Legs Syndrome 04/20/2005 - Rheumatoid arthritis(714.0) 04/20/2005 - S/P lobectomy of lung 01/25/2011 - Type II or unspecified type diabetes mellitus without mention of complication, not stated as uncontrolled 04/20/2005 - Unspecified asthma(493.90) 04/20/2005 - Unspecified essential hypertension 04/20/2005 - Unspecified hypothyroidism 04/20/2005 - Venous stasis edema, legs PAST SURGICAL HISTORY Procedure Laterality Date - APPENDECTOMY 1960 - PAST SURGICAL HISTORY OF 1973 uterus and one ovary removed - REMOVAL ADENOIDS,PRIMARY,<12 Y/O Adenoidectomy - REMOVAL OF TONSILS,<12 Y/O Tonsillectomy - REPAIR UMBILICAL LEX,<5Y/O,REDUC 1992 Hernia repair, umbilical FAMILY HISTORY Problem Relation Age of Onset - Alzheimer's Disease Mother - Diabetes Paternal Grandmother - Cervical Cancer Sister - Diabetes Sister Social History Substance Use Topics - Smoking status: Former Smoker Packs/day: 1.50 Years: 18.00 Types: Cigarettes Quit date: 03/21/1980 - Smokeless tobacco: Never Used - Alcohol use No ALLERGIES: ALLERGIES Allergen Reactions - Adhesive Tape-Silic* - Advair Diskus [Flut* Other: See Comments vision difficulties; aggravated ocular migraines - Asa [Salicylates] Other: See Comments sensitive- she bleeds easily - Fentanyl Rash, Itching Headaches, increased pain - Roca Oxygen Produ* Swelling Headaches - Ivory Soap [Soap] Other: See Comments Eyelid irritation and conjunctivitis (drainage and runny eyes) - Latex Sensitive - Paxil [Paroxetine H* Mental Status Change suicidal - Penicillins Rash generalized swelling - Prilosec [Omeprazol* Intolerance, GI Upset Headache - pt. States okay since not red dye anymore - Red Dye Gi upset, makes throat raw.( did not have allergy testing tho) - Sulfa (Sulfonamide * Swelling Took bactrim without problem - Zithromycin [Other] swelling, rash MEDICATIONS LORazepam (ATIVAN) 0.5 mg tab Take 1 tablet by mouth once daily as needed (anxiety) for up to 30 days. oxyCODONE IR (ROXICODONE) 5 mg immediate release tablet Take 1-2 tablets by mouth three times daily as needed for Pain for up to 30 days.Earliest Fill Date: 12/19/17 HYDROcodone-acetaminophen (NORCO) 5-325 mg per tablet Take 1 tablet by mouth twice daily as needed for up to 30 days. For moderate pain (not severe to need oxycodone).Earliest Fill Date: 12/19/17 mupirocin (BACTROBAN) 2 % cream Apply to affected skin twice daily (May substitute with generic equivalent.; ointment can be given if cream note covered) triamcinolone acetonide (KENALOG) 0.1 % cream Apply 1 application to affected area three times daily. (80 gram tube) levothyroxine (SYNTHROID) 137 mcg tablet Take 1 tablet by mouth daily before breakfast. nystatin (MYCOSTATIN) powder Apply 1 application to affected area four times daily. COMPOUNDED PRESCRIPTION [facility]. Patient needs large oxygen tanks for within the home, and portable tanks for when she is out. Pulse ox 90% on 3L in office. Dx: s/p lobectomy of lung JOSE v45.89, lung cancer 162.3. COMPOUNDED PRESCRIPTION [facility]. Please dispense all attachment supplies for oxygen. gabapentin (NEURONTIN) 600 mg tablet TAKE 1 AND 1/2 (ONE AND ONE-HALF) TABLETS BY MOUTH THREE TIMES DAILY Calcium Citrate-Vitamin D3 (CITRACAL+D) 315-250 mg-unit tab Take 1 tablet by mouth three times daily with meals. potassium chloride (K-TAB) 10 mEq tablet Take 2 tablets by mouth three times daily. As directed metFORMIN (GLUCOPHAGE) 500 mg tablet Take 1 tablet by mouth twice daily. blood sugar diagnostic (ONETOUCH ULTRA TEST) test strip Test Blood Sugars twice a day DX: E11.9 Blood-Glucose Meter (ONETOUCH ULTRAMINI) monitoring kit Test Blood Sugars twice a day DX: E11.9 lancets (ONE TOUCH DELICA) 33 gauge misc Test blood sugar(s) twice a day. Dx: Type 2 DM - Controlled E11.9 Insulin: No sertraline (ZOLOFT) 100 mg tablet Take 1 tablet by mouth twice daily. traZODone (DESYREL) 150 mg tablet Take 1 tablet by mouth daily at bedtime. Omeprazole 40 mg capsule Take 1 capsule by mouth once daily. levalbuterol tartrate HFA (XOPENEX HFA) 45 mcg/actuation inhaler Inhale 1-2 Puffs as instructed every 4 hours as needed. benzonatate (TESSALON PERLE) 100 mg capsule Take 1 capsule by mouth three times daily as needed. loratadine-pseudoephedrine ER (LORATA-D) 10-240 mg Tb24 Take 1 tablet by mouth once daily as needed. COMPOUNDED PRESCRIPTION Diabetic shoes Diagnoses: DM foot deformity and poor circulation. M21.969, R09.89. Dispense 1 pair of [facility] Knee hi JONNY hose, Latex free (R60.9) Venous stasis edema, legs lisinopril 2.5 mg tablet Take 1 tablet by mouth once daily. levalbuterol (XOPENEX) 1.25 mg/3 mL nebulizer solution Use 1 Ampule via nebulizer every 4 hours as needed for Wheezing/Shortness of Breath. clindamycin (CLEOCIN) 1 % external solution Apply 1 application to affected area four times daily as needed. Dispense 1 bottle, not 1ml mometasone (ELOCON) 0.1 % cream Apply 1 application to affected area once daily. For scalp; Rinse the next morning after applying at bedtime. oxybutynin (DITROPAN) 5 mg tablet Take 1 tablet by mouth twice daily. COMPOUNDED PRESCRIPTION Please add humidifer to patient's oxygen. Dx; z99.81, z90.2, j44.9 fluticasone (FLONASE) 50 mcg/actuation nasal spray Use 2 Sprays in each nostril once daily. Rinse mouth after use. FA/MV,CA,IRON,MIN/LYCOPENE/LUT (MULTIVITAL ORAL) Take by mouth. mometasone-formoterol (DULERA) 200-5 mcg/actuation inhaler Inhale 2 Puffs as instructed twice daily. COMPOUNDED PRESCRIPTION Diabetic Shoes Diagnosis: DM type 2 250.00, Pes Planus 754.61, Neuropathic pain 729.2, Hammer toes 735.4 COMPOUNDED PRESCRIPTION Diabetic shoes Diagnosis: 250.00 furosemide (LASIX) 80 mg tablet Take 0.5-1 tablets by mouth once daily. as directed (last RX November 2013) guaiFENesin 600 mg 12 hr tablet Take 2 tablets by mouth twice daily as needed for Cold/Allergy Symptoms. COMPOUNDED PRESCRIPTION Ketoprofen 5%, Amitriptyline 2%, Gabapentin 2%, Lidocaine 5% EPINEPHrine (EPIPEN) 0.3 mg/0.3 mL (1:1,000) PnIj Inject intramuscularly. USE DIRECTED FOR ALLERGIC REACTION. SEEK EMERGENT MEDICAL CARE IMMEDIATELY AFTER USE. COMPOUNDED PRESCRIPTION NEBULIZER FOR HOME USE. DX: 493.90 asthma, h/o lung cancer, s/p lung lobectomyUse as directed COMPOUNDED PRESCRIPTION Firm Mattress for hospital bedDiagnoses: 782.3 Venous stasis edema, legs; V45.89 S/P lobectomy of lung, JOSE COMPOUNDED PRESCRIPTION Hospital bed ( MEGAN, DJD back, fibromyalgia) 729.1, 715.00, 721.3, 327.3)Would like 2 half rails on bed. wt is 316# COMPOUNDED PRESCRIPTION For [facility]. Patient needs large oxygen tanks for within the home, and portable tanks for when she is out. Dx: s/p lobectomy of lung JOSE v45.89, lung cancer 162.3. COMPOUNDED PRESCRIPTION Order for [facility]: Discontinue liquid O2 COMPOUNDED PRESCRIPTION Add humidification to oxygen through the concentratorDiagnosis: COMPOUNDED PRESCRIPTION Heavy duty lift chair, ( pt wt is 321 # ) 6 feet tall. ( 714.0 rheumatoid arthritis, 729.1 Fibromyalgia, having lung surgery and will need to sit upright post operatively, currently short of breath, ) COMPOUNDED PRESCRIPTION Scooter Needs new one since other one needs replaced. Diagnoses: 714.0,721.3,278.01,715.00 COMPOUNDED PRESCRIPTION C-Flex nasal CPCP mask with head gear and tubing supplies. zolpidem (AMBIEN) 10 mg tab TAKE 1 TABLET EVERY DAY AT BEDTIME NEEDED for insomnia. mometasone-formoterol (DULERA) 200-5 mcg/actuation inhaler Inhale 2 Puffs as instructed twice daily. VITAMIN B COMPLEX (SUPER B COMPLEX ORAL) Take by mouth once daily. multivitamin tablet Take 1 tablet by mouth once daily. NIACIN ORAL Take 1 tablet by mouth once daily. omega-3 fatty acids 1,000 mg ORAL Cap Take 1,000 mg by mouth twice daily. REVIEW OF SYSTEMS: GENERAL: Negative for: Weight loss or gain, Fever or Chills, Weakness and Sleep difficulties. Physical Examination: BP 126/60 Pulse 96 SpO2 87% at rest on room air BP w/Orthostatic Vitals Date and Time Orthostatic BP Orthostatic Pulse BP Pulse BP Position BP Site BP Cuff Size 12/26/17 1534 -- -- 126/60 -- Sitting Left Arm Large Adult 12/26/17 1528 -- -- 152/80 96 Sitting Left Arm Large Adult General appearance: Well appearing, alert, SOB when oxygen is removed, obese, well-hydrated, well nourished. Seated in wheelchair, has 3LNC Skin: Skin color, texture, turgor normal, no suspicious rashes or lesions Lungs: Lung sounds are decreased but no wheezing, rhonchi, rales appreciated on exam Heart: RRR without murmur, gallop, or rubs. Reviewed chart, outside records, tests I personally interviewed, confirmed and edited the above information if obtained by others. TESTING: Glucose (mg/dL) Date Value 10/05/2017 147 Potassium (mmol/L) Date Value 10/05/2017 4.6 Sodium (mmol/L) Date Value 10/05/2017 140 Chloride (mmol/L) Date Value 10/05/2017 92 CO2 (mmol/L) Date Value 10/05/2017 30 Creatinine (mg/dL) Date Value 10/05/2017 0.65 BUN (mg/dL) Date Value 10/05/2017 8 Anion Gap (mmol/L) Date Value 10/05/2017 18 Calcium (mg/dL) Date Value 10/05/2017 10.2 Glucose (mg/dL) Date Value 10/05/2017 147 Potassium (mmol/L) Date Value 10/05/2017 4.6 Sodium (mmol/L) Date Value 10/05/2017 140 Chloride (mmol/L) Date Value 10/05/2017 92 CO2 (mmol/L) Date Value 10/05/2017 30 Creatinine (mg/dL) Date Value 10/05/2017 0.65 BUN (mg/dL) Date Value 10/05/2017 8 Anion Gap (mmol/L) Date Value 10/05/2017 18 Calcium (mg/dL) Date Value 10/05/2017 10.2 Protein, Total (g/dL) Date Value 10/25/2017 7.7 Albumin (g/dL) Date Value 10/25/2017 3.4 Bilirubin, Total (mg/dL) Date Value 10/25/2017 0.2 Alkaline Phosphatase (U/L) Date Value 10/25/2017 66 AST (U/L) Date Value 10/25/2017 46 ALT (U/L) Date Value 10/25/2017 26 Hemoglobin (g/dL) Date Value 07/26/2016 11.9 Hematocrit (%) Date Value 07/26/2016 39.0 WBC (k/uL) Date Value 07/26/2016 8.49 Cholesterol, Total (mg/dL) Date Value 10/05/2017 153 HDL Cholesterol (mg/dL) Date Value 10/05/2017 39 LDL Cholesterol (mg/dL) Date Value 10/05/2017 79 Triglyceride (mg/dL) Date Value 10/05/2017 175 Hemoglobin A1C Date Value Ref Range Status 10/05/2017 5.7 (H) 4.3 - 5.6 % Final 04/19/2017 5.9 (H) 4.3 - 5.6 % Final 12/06/2016 Test sent to [facility]. 4.0 - 6.0 % Final Comment: Account Credited HIDE 07/26/2016 5.8 (H) 4.3 - 5.6 % Final Comment: [place] [employer] guidelines indicate that patients with HgbA1c in the range 5.7-6.4% are at increased risk for development of diabetes, and intervention by lifestyle modification may be beneficial. HgbA1c greater or equal to 6.5% is considered diagnostic of diabetes. 11/26/2015 5.8 (H) 4.3 - 5.6 % Final Comment: [place] [employer] guidelines indicate that patients with HgbA1c in the range 5.7-6.4% are at increased risk for development of diabetes, and intervention by lifestyle modification may be beneficial. HgbA1c greater or equal to 6.5% is considered diagnostic of diabetes. Ejection Fraction - Result: 60 % Date: 12/08/2010 Time: 15:04:00 IMPRESSION: Ms. Andrade is a 77 year old woman with history of lung cancer, prior lobectomy, severe restrictive lung disease who presents for hypoxia follow up. She continues to require oxygen at rest, at 87%spO2 at rest on room tiara in office today. After my examination and review of data, I make the following recommendations. PLAN AND RECOMMENDATIONS: ASSESSMENT/PLAN: 1. Need for vaccination - ICD9: V05.9, ICD10: Z23 (primary diagnosis) - INFLUENZA SEASONAL HIGH DOSE AGE 65+ 2. History of lung cancer - ICD9: V10.11, ICD10: Z85.118 3. S/P lobectomy of lung - ICD9: V45.89, ICD10: Z90.2 4. Restrictive lung disease - ICD9: 518.89, ICD10: J98.4 5. Severe persistent asthma without complication - ICD9: 493.90, ICD10: J45.50 Continue with medications unchanged Continue with 3 L oxygen nasal cannula unchanged Will send copy of note to [facility] today per request. Advised to go to ER if develops chest pain, shortness of breath, or severe worsening of symptoms. Discussed risks, benefits, alternatives, and potential side effects of medications. Ms. Andrade expressed understanding and agreed with the plan. Magdalena Griffin APRN.CHUCKING MACHINE SET UP OPERATOR Referring Provider: DIEGO CRISOSTOMO [[id number]] Allergies As of Date: 12/26/2017 Noted Allergy Reaction ADHESIVE TAPE-SILICONES 05/26/2005 ADVAIR DISKUS (FLUTICASONE-SALMET*05/21/2014 14 - Other: See Comments Comments: vision difficulties; aggravated ocular migraines ASA (SALICYLATES) 04/16/2005 14 - Other: See Comments Comments: sensitive- she bleeds easily FENTANYL 03/18/2011 2 - Rash 9 - Itching Comments: Headaches, increased pain Roca Oxygen Products [Other] 02/25/2011 7 - Swelling Comments: Headaches IVORY SOAP (SOAP) 05/08/2013 14 - Other: See Comments Comments: Eyelid irritation and conjunctivitis (drainage and runny eyes) LATEX 11/08/2006 Comments: Sensitive PAXIL (PAROXETINE HCL) 04/19/2005 1 - Mental Status Change Comments: suicidal PENICILLINS 04/16/2005 2 - Rash Comments: generalized swelling PRILOSEC (OMEPRAZOLE) 08/23/2008 5 - Intolerance 8 - GI Upset Comments: Headache - pt. States okay since not red dye anymore RED DYE 08/19/2008 Comments: Gi upset, makes throat raw.( did not have allergy testing tho) SULFA (SULFONAMIDE ANTIBIOTICS) 01/15/2009 7 - Swelling Comments: Took bactrim without problem zithromycin [Other] 04/19/2005 Comments: swelling, rash Date Reviewed: 12/26/2017 Reviewed by: Eliza Connell LPN - Fully Assessed Reason for Visit: F/U 3 Month [443] Oxygen [3494] Imm/Inj [58] Cmt: Flu Vaccine Reason For Visit History Recorded Primary Visit Diagnosis:Need for vaccination [Z23] Other Visit Diagnoses:History of lung cancer [Z85.118] S/P lobectomy of lung [Z90.2] Restrictive lung disease [J98.4] Severe persistent asthma without complication [J45.50] Order(s):INFLUENZA SEASONAL HIGH DOSE AGE 65+ [[id number]] Order #: [id number] Prescriptions as of 12/26/2017 Sig: LORAZEPAM 0.5 MG TABLET Take 1 tablet by mouth once d* OXYCODONE 5 MG TABLET Take 1-2 tablets by mouth thr* HYDROCODONE 5 MG-ACETAMINOPHE* Take 1 tablet by mouth twice * MUPIROCIN 2 % TOPICAL CREAM Apply to affected skin twice * TRIAMCINOLONE ACETONIDE 0.1 %* Apply 1 application to affect* LEVOTHYROXINE 137 MCG TABLET Take 1 tablet by mouth daily * NYSTATIN 100,000 UNIT/GRAM TO* Apply 1 application to affect* COMPOUNDED PRESCRIPTION For [facility]. Nubia* COMPOUNDED PRESCRIPTION For [facility]. Plea* GABAPENTIN 600 MG TABLET TAKE 1 AND 1/2 (ONE AND ONE-GAURANG* CALCIUM CITRATE-VITAMIN D3 31* Take 1 tablet by mouth three * POTASSIUM CHLORIDE ER 10 MEQ * Take 2 tablets by mouth three* METFORMIN 500 MG TABLET Take 1 tablet by mouth twice * BLOOD SUGAR DIAGNOSTIC STRIPS Test Blood Sugars twice a day* BLOOD-GLUCOSE METER KIT Test Blood Sugars twice a day* LANCETS 33 GAUGE Test blood sugar(s) twice a d* SERTRALINE 100 MG TABLET Take 1 tablet by mouth twice * TRAZODONE 150 MG TABLET Take 1 tablet by mouth daily * OMEPRAZOLE 40 MG CAPSULE,DUNIA* Take 1 capsule by mouth once * LEVALBUTEROL HFA 45 MCG/ACTUA* Inhale 1-2 Puffs as instructe* BENZONATATE 100 MG CAPSULE Take 1 capsule by mouth three* LORATADINE-PSEUDOEPHEDRINE ER* Take 1 tablet by mouth once d* COMPOUNDED PRESCRIPTION Diabetic shoes Diagnoses: D* MISCELLANEOUS MEDICAL SUPPLY * Knee hi JONNY hose, Latex free * LISINOPRIL 2.5 MG TABLET Take 1 tablet by mouth once d* LEVALBUTEROL 1.25 MG/3 ML GILLIAN* Use 1 Ampule via nebulizer ev* CLINDAMYCIN PHOSPHATE 1 % TOP* Apply 1 application to affect* MOMETASONE 0.1 % TOPICAL CREAM Apply 1 application to affect* OXYBUTYNIN CHLORIDE 5 MG TABL* Take 1 tablet by mouth twice * COMPOUNDED PRESCRIPTION Please add humidifer to patie* FLUTICASONE 50 MCG/ACTUATION * Use 2 Sprays in each nostril * MULTIVITAL ORAL Take by mouth. MOMETASONE-FORMOTEROL HFA 200* Inhale 2 Puffs as instructed * COMPOUNDED PRESCRIPTION Diabetic Shoes Diagnosis: * COMPOUNDED PRESCRIPTION Diabetic shoes Diagnosis: 25* FUROSEMIDE 80 MG TABLET Take 0.5-1 tablets by mouth o* GUAIFENESIN ER 600 MG TABLET,* Take 2 tablets by mouth twice* COMPOUNDED PRESCRIPTION Ketoprofen 5%, Amitriptyline * EPINEPHRINE 0.3 MG/0.3 ML INJ* Inject intramuscularly. USE * COMPOUNDED PRESCRIPTION NEBULIZER FOR HOME USE. DX: * COMPOUNDED PRESCRIPTION Firm Mattress for hospital be* COMPOUNDED PRESCRIPTION Hospital bed ( MEGAN, DJD b* COMPOUNDED PRESCRIPTION For [facility]. Nubia* COMPOUNDED PRESCRIPTION Order for [facility]: Disco* COMPOUNDED PRESCRIPTION Add humidification to oxygen * COMPOUNDED PRESCRIPTION Heavy duty lift chair, ( pt w* COMPOUNDED PRESCRIPTION Scooter Needs new one since* COMPOUNDED PRESCRIPTION C-Flex nasal CPCP mask with h* ZOLPIDEM 10 MG TABLET TAKE 1 TABLET EVERY DAY AT BE* Patient not taking: Reported on 12/26/2017 MOMETASONE-FORMOTEROL HFA 200* Inhale 2 Puffs as instructed * SUPER B COMPLEX ORAL Take by mouth once daily. * MULTIVITAMIN TABLET Take 1 tablet by mouth once d* * NIACIN ORAL Take 1 tablet by mouth once d* * OMEGA-3 FATTY ACIDS 1,000 MG * Take 1,000 mg by mouth twice * Medication notes this encounter MOMETASONE-FORMOTEROL HFA 200 MCG-5 MCG/ACTUATION AEROSOL INHALER >> Eliza Connell LPN 12/26/2017 3:31 PM >> ELIZA CONNELL LPN TueDec 26, 2017 3:31 PM duplicate Problem List As Of Date 12/26/2017 Noted Resolved Diabetes mellitus type 2, controlled, without c*INVALID FOR* Priority: C More... Depressive disorder, not elsewhere classified [*INVALID FOR* Priority: E More... MEGAN (obstructive sleep apnea) [G47.33] INVALID FOR* Priority: B More... Essential hypertension [I10] INVALID FOR* Priority: D More... Hypothyroidism [E03.9] INVALID FOR* Priority: E More... Esophageal reflux [K21.9] INVALID FOR* More... Restless Legs Syndrome [G25.89] INVALID FOR* More... Allergic rhinitis, cause unspecified [J30.9] INVALID FOR* More... Primary osteoarthritis involving multiple joint*INVALID FOR* Priority: D More... Rheumatoid arthritis [M06.9] INVALID FOR*12/26/2010 Priority: D PMH - PAST MEDICAL HISTORY OF 08/09/2013 More... LUMBOSACRAL SPONDYLOSIS [M47.817] INVALID FOR* Morbid obesity [E66.01] INVALID FOR* Priority: D More... Sprain of lumbar region [S33.5XXA] INVALID FOR*08/09/2013 Pure hyperglyceridemia [E78.1] Priority: D More... Insomnia, unspecified [G47.00] INVALID FOR*08/09/2013 Venous stasis edema, legs [R60.9] Priority: D More... Cellulitis and abscess of leg, except foot [L03* 08/09/2013 More... CLUSTER HEADACHE SYN NOS [G44.009] INVALID FOR* More... CONGENITAL PES PLANUS [Q66.50] INVALID FOR* Fibromyalgia [M79.7] More... Acute postoperative pain [G89.18] INVALID FOR*08/09/2013 Priority: D More... Left video-assisted thoracoscopic surgery upper*INVALID FOR* Priority: A More... D/C planning [Z71.89] INVALID FOR*08/09/2013 Priority: M More... DVT prophylaxis [XCG4172] INVALID FOR*08/09/2013 Priority: C More... R/o pressure ulcer on nose [L89.899] INVALID FOR*08/09/2013 Priority: I More... 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 S/P lobectomy of lung, JOSE [Z90.2] INVALID FOR* Drug induced neutropenia [D70.2] INVALID FOR*05/20/2011 History of lung cancer [Z85.118] INVALID FOR* More... Neuropathic pain [M79.2] INVALID FOR* More... Pain in joint, lower leg [M25.569] INVALID FOR* Anxiety [F41.9] INVALID FOR* More... Insomnia [G47.00] INVALID FOR* More... Hypokalemia [E87.6] INVALID FOR*11/14/2013 Lung cancer (HCC) [C34.90] INVALID FOR* Acquired bilateral hammer toes [M20.41, M20.42] INVALID FOR* Neuralgia, neuritis, and radiculitis, unspecifi*INVALID FOR* Weakness [R53.1] INVALID FOR* Difficulty walking [R26.2] INVALID FOR* Encounter Status:Closed by MAGDALENA BILLINGSLEY on 12/26/17 FECAL OCCULT BLD Collected: 11/03/2017 Status: F Source: [facility] 4:56 PM [facility] REPOSITORY TYPE CODE TESTS RESULT OUT OF REFERENCE UNITS RANGE LAB IFO Negative Immuno Negative FOB Result Comment: This test was developed and its performance characteristics determined by [facility]'s Shawn Thuy [facility] Pathology [facility] [place] ([facility] It has not been cleared or approved by the FDA. [facility] is regulated under CLIA as qualified to perform high-complexity testing. This test is used for clinical purposes. It should not be regarded as investigational or for research. Performed By: #### IFOBT #### [place] [id number] [place] [address] HEPATIC FUNCTN PANEL Collected: 10/25/2017 Status: F Source: [place] 4:30 PM [facility] REPOSITORY TYPE CODE TESTS RESULT OUT OF REFERENCE UNITS RANGE LAB ALB 3.9-4.9 g/dL Low Albumin 3.4 LAB TBIL 0.2-1.3 mg/dL Bilirubin, Total 0.2 LAB CBIL <0.2 mg/dL Bilirubin,Conjuga <0.2 jonny LAB ALKP 32-117 U/L Alkaline Phosphatase 66 LAB AST 13-35 U/L AST High 46 LAB ALT 7-38 U/L ALT 26 LAB TP 6.3-8.0 g/dL Protein, Total 7.7 Performed By: #### HFP, HREMOP #### [facility] [facility] [place] [address] HEPATITIS REMOTE PANEL Collected: 10/25/2017 Status: F Source: [place] 4:30 PM [facility] REPOSITORY TYPE CODE TESTS RESULT OUT OF REFERENCE UNITS RANGE LAB AHBCOT Negative Hep B Core Ab,Total Negative LAB AHCV Negative Hepatitis C Ab Negative IA LAB HBSAGR Negative HBsAg Negative LAB AHBSAG Negative HepB Surface Ab,Qual Negative Result Comment: NEGATIVE Performed By: #### HFP, HREMOP #### [facility] [place] [id number] PROGRESS Observed: 10/25/2017 Status: COMPLETED Source: [place] 3:[address] [facility] REPOSITORY HNO ID: [id number] Author: Jose Soria Service: (none) Author Type: Nurse Practitioner Type: Progress Notes Filed: 10/27/2017 8:55 AM Note Text: 10/25/2017 No chief complaint on file. SUBJECTIVE: This is a 77 year old that is here today for follow up chronic conditions. Son is here with her and they states that she stays in a hospital bed all day and the sone helps with bed pans and all daily needs. She states that she is able to get up and into a chair, but it takes about 30 min and she does not feel that it is worth the effort. Son denies noticing any sores. She is requesting refill for Ambian. She states that she has not been able to sleep well because she has been out of it for a month. She states that she continues to take her trazadone. She states that she had been having issues with her O2 orders and she had the home care company at her house trying to take away her O2 tanks. She is happy to hear that according to our records, the orders were sent. She states that as long as she is on her 3L O2, she has no issues with SOB or cough. She states that when she removes it to dress or anything, she gets SOB quickly. DIABETES MELLITUS: Ms. Andrade was last seen 7 months ago. Since her last visit she denies excessive thirst or increased frequency of urination, chest pain or dyspnea , numbness, tingling or pain in extremities, new or unusual visual symptoms, low sugar/hypoglycemic reactions, weight loss/gain, lightheadedness/dizziness and bowel changes/loose stools. Patient does have some numbness of feet. Son checks feet regularly. Reiteration of importance of diabetic foot care give Follows a diabetic diet most of the time. She is compliant with medication(s) and is tolerating med(s) without any side effects. She reports checking her glucose on a once a day schedule with sugars in the fasting 110-128 range. Patient's last HgA1C was Hemoglobin A1C (%) Date Value 10/05/2017 5.7 04/19/2017 5.9 ) She has not had a foot exam and is requesting that it be done by PCP at next visit because she does not want to go through the process of removing her braces and shoes today. She is over due for her eye exam and she states that she has had trouble finding a place that can physically accommodate her. She is trying to get an appointment in either [place] or [place]. HTN: Ms. Andrade indicates that she is feeling well and denies any symptoms referable to elevated blood pressure. Specifically denies headache, chest pain, palpitations, dyspnea and peripheral edema. Patient denies any side effects of her medication(s) and is compliant with their regimen. She does check BP's away from this office with average BP's in the 115-120/70s range. Alea denies regular aerobic exercise or has limited mobility and can not participate in aerobic exercise. She watches her diet for sodium, low fat and low cholesterol most of the time. Last 3 Encounter BP Readings: Date: BP: 10/25/2017 118/76 04/19/2017 134/82 12/13/2016 120/80 After reviewing recent labs, discussed that liver enzyme is elevated and I would like to recheck. She asks if there could be a link to the fact that she had hepatitis in the 1950s. She states that she would like to be checked again if able. PAST MEDICAL HISTORY Diagnosis Date - Allergic rhinitis, cause unspecified 04/20/2005 - Asthma - Cellulitis and abscess of leg, except foot Recurrent episodes of cellulitis related to venous stasis - COPD (chronic obstructive pulmonary disease) (HCC) - Depressive disorder, not elsewhere classified 04/20/2005 - Diabetes mellitus without mention of complication Diabetes mellitus - Esophageal reflux 04/20/2005 - Fibromyalgia - Generalized osteoarthrosis, unspecified site 04/20/2005 - Oxygen dependent - Peptic ulcer, unspecified site, unspecified as acute or chronic, without mention of hemorrhage, perforation, or obstruction 1997 bleeding ulcers 1997 - PMH - PAST MEDICAL HISTORY OF narcolepsy and sleep apnea--recent sleep study 2009; CPAP at 13 (Dr. Mackenzie) - Pure hyperglyceridemia Slightly elevated TG; low HDL - Restless Legs Syndrome 04/20/2005 - Rheumatoid arthritis(714.0) 04/20/2005 - S/P lobectomy of lung 01/25/2011 - Type II or unspecified type diabetes mellitus without mention of complication, not stated as uncontrolled 04/20/2005 - Unspecified asthma(493.90) 04/20/2005 - Unspecified essential hypertension 04/20/2005 - Unspecified hypothyroidism 04/20/2005 - Venous stasis edema, legs ALLERGIES Adhesive Tape-Silicones; Advair Diskus [Fluticasone-Salmeterol]; Asa [Salicylates]; Fentanyl; Roca Oxygen Products [Other]; Ivory Soap [Soap]; Latex; Paxil [Paroxetine Hcl]; Penicillins; Prilosec [Omeprazole]; Red Dye; Sulfa (Sulfonamide Antibiotics); Zithromycin [Other] MEDICATIONS Current Outpatient Prescriptions: COMPOUNDED PRESCRIPTION For [facility]. Patient needs large oxygen tanks for within the home, and portable tanks for when she is out. Pulse ox 90% on 3L in office. Dx: s/p lobectomy of lung JOSE v45.89, lung cancer 162.3. COMPOUNDED PRESCRIPTION For [facility]. Please dispense all attachment supplies for oxygen. LORazepam (ATIVAN) 0.5 mg tab Take 1 tablet by mouth once daily as needed (anxiety) for up to 30 days. oxyCODONE IR (ROXICODONE) 5 mg immediate release tablet Take 1-2 tablets by mouth three times daily as needed for Pain for up to 30 days.Earliest Fill Date: 10/14/17 HYDROcodone-acetaminophen (NORCO) 5-325 mg per tablet Take 1 tablet by mouth twice daily as needed for up to 30 days. For moderate pain (not severe to need oxycodone).Earliest Fill Date: 10/14/17 mupirocin (BACTROBAN) 2 % cream Apply to affected skin twice daily (May substitute with generic equivalent.; ointment can be given if cream note covered) triamcinolone acetonide (KENALOG) 0.1 % cream Apply 1 application to affected area three times daily. (80 gram tube) gabapentin (NEURONTIN) 600 mg tablet TAKE 1 AND 1/2 (ONE AND ONE-HALF) TABLETS BY MOUTH THREE TIMES DAILY Calcium Citrate-Vitamin D3 (CITRACAL+D) 315-250 mg-unit tab Take 1 tablet by mouth three times daily with meals. potassium chloride (K-TAB) 10 mEq tablet Take 2 tablets by mouth three times daily. As directed metFORMIN (GLUCOPHAGE) 500 mg tablet Take 1 tablet by mouth twice daily. blood sugar diagnostic (ONETOUCH ULTRA TEST) test strip Test Blood Sugars twice a day DX: E11.9 Blood-Glucose Meter (ONETOUCH ULTRAMINI) monitoring kit Test Blood Sugars twice a day DX: E11.9 lancets (ONE TOUCH DELICA) 33 gauge [facility] Test blood sugar(s) twice a day. Dx: Type 2 DM - Controlled E11.9 Insulin: No sertraline (ZOLOFT) 100 mg tablet Take 1 tablet by mouth twice daily. mometasone-formoterol (DULERA) 200-5 mcg/actuation inhaler Inhale 2 Puffs as instructed twice daily. traZODone (DESYREL) 150 mg tablet Take 1 tablet by mouth daily at bedtime. Omeprazole 40 mg capsule Take 1 capsule by mouth once daily. levalbuterol tartrate HFA (XOPENEX HFA) 45 mcg/actuation inhaler Inhale 1-2 Puffs as instructed every 4 hours as needed. benzonatate (TESSALON PERLE) 100 mg capsule Take 1 capsule by mouth three times daily as needed. loratadine-pseudoephedrine ER (LORATA-D) 10-240 mg Tb24 Take 1 tablet by mouth once daily as needed. zolpidem (AMBIEN) 10 mg tab TAKE 1 TABLET EVERY DAY AT BEDTIME NEEDED for insomnia. COMPOUNDED PRESCRIPTION Diabetic shoes Diagnoses: DM foot deformity and poor circulation. M21.969, R09.89. Dispense 1 pair of shoes levothyroxine (SYNTHROID) 137 mcg tablet Take 1 tablet by mouth daily before breakfast. Miscellaneous Medical Supply [facility] Knee hi JONNY hose, Latex free (R60.9) Venous stasis edema, legs lisinopril 2.5 mg tablet Take 1 tablet by mouth once daily. levalbuterol (XOPENEX) 1.25 mg/3 mL nebulizer solution Use 1 Ampule via nebulizer every 4 hours as needed for Wheezing/Shortness of Breath. clindamycin (CLEOCIN) 1 % external solution Apply 1 application to affected area four times daily as needed. Dispense 1 bottle, not 1ml mometasone (ELOCON) 0.1 % cream Apply 1 application to affected area once daily. For scalp; Rinse the next morning after applying at bedtime. oxybutynin (DITROPAN) 5 mg tablet Take 1 tablet by mouth twice daily. COMPOUNDED PRESCRIPTION Please add humidifer to patient's oxygen. Dx; z99.81, z90.2, j44.9 fluticasone (FLONASE) 50 mcg/actuation nasal spray Use 2 Sprays in each nostril once daily. Rinse mouth after use. FA/MV,CA,IRON,MIN/LYCOPENE/LUT (MULTIVITAL ORAL) Take by mouth. VITAMIN B COMPLEX (SUPER B COMPLEX ORAL) Take by mouth once daily. mometasone-formoterol (DULERA) 200-5 mcg/actuation inhaler Inhale 2 Puffs as instructed twice daily. COMPOUNDED PRESCRIPTION Diabetic Shoes Diagnosis: DM type 2 250.00, Pes Planus 754.61, Neuropathic pain 729.2, Hammer toes 735.4 COMPOUNDED PRESCRIPTION Diabetic shoes Diagnosis: 250.00 furosemide (LASIX) 80 mg tablet Take 0.5-1 tablets by mouth once daily. as directed (last RX November 2013) guaiFENesin 600 mg 12 hr tablet Take 2 tablets by mouth twice daily as needed for Cold/Allergy Symptoms. COMPOUNDED PRESCRIPTION Ketoprofen 5%, Amitriptyline 2%, Gabapentin 2%, Lidocaine 5% EPINEPHrine (EPIPEN) 0.3 mg/0.3 mL (1:1,000) PnIj Inject intramuscularly. USE DIRECTED FOR ALLERGIC REACTION. SEEK EMERGENT MEDICAL CARE IMMEDIATELY AFTER USE. COMPOUNDED PRESCRIPTION NEBULIZER FOR HOME USE. DX: 493.90 asthma, h/o lung cancer, s/p lung lobectomyUse as directed COMPOUNDED PRESCRIPTION Firm Mattress for hospital bedDiagnoses: 782.3 Venous stasis edema, legs; V45.89 S/P lobectomy of lung, JOSE multivitamin tablet Take 1 tablet by mouth once daily. NIACIN ORAL Take 1 tablet by mouth once daily. COMPOUNDED PRESCRIPTION Hospital bed ( MEGAN, DJD back, fibromyalgia) 729.1, 715.00, 721.3, 327.3)Would like 2 half rails on bed. wt is 316# COMPOUNDED PRESCRIPTION For [facility]. Patient needs large oxygen tanks for within the home, and portable tanks for when she is out. Dx: s/p lobectomy of lung JOSE v45.89, lung cancer 162.3. COMPOUNDED PRESCRIPTION Order for [facility]: Discontinue liquid O2 COMPOUNDED PRESCRIPTION Add humidification to oxygen through the concentratorDiagnosis: COMPOUNDED PRESCRIPTION Heavy duty lift chair, ( pt wt is 321 # ) 6 feet tall. ( 714.0 rheumatoid arthritis, 729.1 Fibromyalgia, having lung surgery and will need to sit upright post operatively, currently short of breath, ) omega-3 fatty acids 1,000 mg ORAL Cap Take 1,000 mg by mouth twice daily. COMPOUNDED PRESCRIPTION Scooter Needs new one since other one needs replaced. Diagnoses: 714.0,721.3,278.01,715.00 COMPOUNDED PRESCRIPTION C-Flex nasal CPCP mask with head gear and tubing supplies. No current facility-administered medications for this visit. Medications and allergies reviewed by this provider. SOCIAL HISTORY Social History Marital status: Spouse name: Juan Pablo Years of education: Number of children: Occupational History Occupation Employer Comment [employer]* Social History Main Topics Smoking status: Former Smoker Packs/day: 1.50 Years: 18.00 Types: Cigarettes Quit date: 03/21/1980 Smokeless tobacco: Never Used Alcohol use: No Drug use: No REVIEW OF SYSTEMS GENERAL: No weight loss, malaise or fevers NECK: Negative for lumps, goiter, pain and significant neck swelling RESPIRATORY: Negative for cough, hemoptysis, wheezing, COPD, dyspnea or shortness of breath CARDIOVASCULAR: Negative for chest pain, leg swelling, hypertension, CHF or palpitations GI: No nausea, vomiting, or diarrhea and No heartburn or reflux symptoms : No history of dysuria, frequency or incontinence SKIN: Negative for lesions, rash, and itching ENDOCRINE: See HPI OBJECTIVE: BP 118/76 Pulse 112 Resp 20 SpO2 94% . Vital signs reviewed by this provider. PHYSICAL EXAMINATION: General appearance: Well appearing, alert, in no acute distress, well-hydrated, well nourished., Morbidly obese and Wheelchair Skin: Skin color, texture, turgor normal, no suspicious rashes or lesions Lungs: Lungs clear to auscultation. No wheezing, rhonchi, rales Heart: RRR without murmur, gallop, or rubs. No ectopy Abdomen: Abdomen soft, non-tender. Bowel sounds normal. Extremities: No deformities, edema, skin discoloration, clubbing or cyanosis. Good capillary refill. , Pulses: 2+, unable to fully assess lower extremities due to braces and shoes. She was wearing compression stockings and no obvious edema noted. ASSESSMENT/PLAN: 1. Controlled type 2 diabetes mellitus without complication, without long-term current use of insulin (HCC) - ICD9: 250.00, ICD10: E11.9 (primary diagnosis) Controlled. - Continue current medications - Blood glucose monitoring on a once a day schedule - Ophthalmology referral for eval/management of diabetic eye changes - Encouraged regular aerobic exercise and weight loss - Follow up in 3 months, sooner should any other issues arise. - Discussed diabetic education issues of fdc diabetic complications, hypoglycemic symptoms, hyperglycemic symptoms, diet, medications- side effects and need for compliance, importance of exercise and importance of annual examinations with Opthalmology with patient. - will need foot exam at next visit. 2. Essential hypertension - ICD9: 401.9, ICD10: I10 - good control - Continue current medication(s) - Encouraged dietary sodium restriction/DASH diet - Recommended regular aerobic exercise. - Recommend home blood pressure monitoring, to bring results in on next visit - Discussed need and benefit for weight loss. - Recheck in 3 months, sooner should new symptoms or problems arise. - Reviewed risks of HTN and principles of treatment - Goal of BP <140/90 - Recommended no refined sugar, low refined starch, healthy oil intake (olive oil), healthy protein (fish) along the lines of the Mediterranean diet. 3. S/P lobectomy of lung, JOSE - ICD9: V45.89, ICD10: Z90.2 - continue with O2 - encouraged to contact office if still having trouble with the home care and O2. 4. History of lung cancer - ICD9: V10.11, ICD10: Z85.118 - see above 5. Morbid obesity (HCC) - ICD9: 278.01, ICD10: E66.01 - see above 6. Insomnia, unspecified type - ICD9: 780.52, ICD10: G47.00 - discussed with just seeing her for the first time and not having consistent follow up, I will defer ambian refill to PCP. Son and patient very unhappy with this and a long discussion was had. Encouraged to schedule several 3 month appointments with PCP ahead of time and keep the appointments. 7. Elevated LFTs - ICD9: 790.6, ICD10: R94.5 - will recheck and add hepatitis panel. May need to have RUQ US if still elevated. - HEPATIC FUNCTION PNL - HEP REMOTE PANEL BL 8. Screening for colon cancer - ICD9: V76.51, ICD10: Z12.11 - FECAL OCCULT BLOOD TEST Jose Soria APRN.CNP The majority of the visit was spent counseling and/or coordinating care for the patient. Cowc-kg-yick time was 35 minutes. CNOV Observed: 10/25/2017 Status: COMPLETED Source: [place] 3:00 PM [facility] REPOSITORY Office Visit (FAMPWS) ALEA ANDRADE ([id number]) 1940 F Date Time Provider Department 10/25/17 3:00 PM [facility] During your visit today, we recorded the following information about you: Pulse Respiration Blood pressure 112/minute 20/minute 118/76 Jose Soria APRN.CNP 10/27/2017 8:55 AM Signed 10/25/2017 No chief complaint on file. SUBJECTIVE: This is a 77 year old that is here today for follow up chronic conditions. Son is here with her and they states that she stays in a hospital bed all day and the sone helps with bed pans and all daily needs. She states that she is able to get up and into a chair, but it takes about 30 min and she does not feel that it is worth the effort. Son denies noticing any sores. She is requesting refill for Ambian. She states that she has not been able to sleep well because she has been out of it for a month. She states that she continues to take her trazadone. She states that she had been having issues with her O2 orders and she had the home care company at her house trying to take away her O2 tanks. She is happy to hear that according to our records, the orders were sent. She states that as long as she is on her 3L O2, she has no issues with SOB or cough. She states that when she removes it to dress or anything, she gets SOB quickly. DIABETES MELLITUS: Ms. Andrade was last seen 7 months ago. Since her last visit she denies excessive thirst or increased frequency of urination, chest pain or dyspnea , numbness, tingling or pain in extremities, new or unusual visual symptoms, low sugar/hypoglycemic reactions, weight loss/gain, lightheadedness/dizziness and bowel changes/loose stools. Patient does have some numbness of feet. Son checks feet regularly. Reiteration of importance of diabetic foot care give Follows a diabetic diet most of the time. She is compliant with medication(s) and is tolerating med(s) without any side effects. She reports checking her glucose on a once a day schedule with sugars in the fasting 110-128 range. Patient's last HgA1C was Hemoglobin A1C (%) Date Value 10/05/2017 5.7 04/19/2017 5.9 ) She has not had a foot exam and is requesting that it be done by PCP at next visit because she does not want to go through the process of removing her braces and shoes today. She is over due for her eye exam and she states that she has had trouble finding a place that can physically accommodate her. She is trying to get an appointment in either [place] or [place]. HTN: Ms. Andrade indicates that she is feeling well and denies any symptoms referable to elevated blood pressure. Specifically denies headache, chest pain, palpitations, dyspnea and peripheral edema. Patient denies any side effects of her medication(s) and is compliant with their regimen. She does check BP's away from this office with average BP's in the 115-120/70s range. Alea denies regular aerobic exercise or has limited mobility and can not participate in aerobic exercise. She watches her diet for sodium, low fat and low cholesterol most of the time. Last 3 Encounter BP Readings: Date: BP: 10/25/2017 118/76 04/19/2017 134/82 12/13/2016 120/80 After reviewing recent labs, discussed that liver enzyme is elevated and I would like to recheck. She asks if there could be a link to the fact that she had hepatitis in the 1950s. She states that she would like to be checked again if able. PAST MEDICAL HISTORY Diagnosis Date - Allergic rhinitis, cause unspecified 04/20/2005 - Asthma - Cellulitis and abscess of leg, except foot Recurrent episodes of cellulitis related to venous stasis - COPD (chronic obstructive pulmonary disease) (HCC) - Depressive disorder, not elsewhere classified 04/20/2005 - Diabetes mellitus without mention of complication Diabetes mellitus - Esophageal reflux 04/20/2005 - Fibromyalgia - Generalized osteoarthrosis, unspecified site 04/20/2005 - Oxygen dependent - Peptic ulcer, unspecified site, unspecified as acute or chronic, without mention of hemorrhage, perforation, or obstruction 1997 bleeding ulcers 1997 - PMH - PAST MEDICAL HISTORY OF narcolepsy and sleep apnea--recent sleep study 2009; CPAP at 13 (Dr. Mackenzie) - Pure hyperglyceridemia Slightly elevated TG; low HDL - Restless Legs Syndrome 04/20/2005 - Rheumatoid arthritis(714.0) 04/20/2005 - S/P lobectomy of lung 01/25/2011 - Type II or unspecified type diabetes mellitus without mention of complication, not stated as uncontrolled 04/20/2005 - Unspecified asthma(493.90) 04/20/2005 - Unspecified essential hypertension 04/20/2005 - Unspecified hypothyroidism 04/20/2005 - Venous stasis edema, legs ALLERGIES Adhesive Tape-Silicones; Advair Diskus [Fluticasone- Salmeterol]; Asa [Salicylates]; Fentanyl; Roca Oxygen Products [Other]; Ivory Soap [Soap]; Latex; Paxil [Paroxetine Hcl]; Penicillins; Prilosec [Omeprazole]; Red Dye; Sulfa (Sulfonamide Antibiotics); Zithromycin [Other] MEDICATIONS Current Outpatient Prescriptions: COMPOUNDED PRESCRIPTION For [facility]. Patient needs large oxygen tanks for within the home, and portable tanks for when she is out. Pulse ox 90% on 3L in office. Dx: s/p lobectomy of lung JOSE v45.89, lung cancer 162.3. COMPOUNDED PRESCRIPTION For [facility]. Please dispense all attachment supplies for oxygen. LORazepam (ATIVAN) 0.5 mg tab Take 1 tablet by mouth once daily as needed (anxiety) for up to 30 days. oxyCODONE IR (ROXICODONE) 5 mg immediate release tablet Take 1-2 tablets by mouth three times daily as needed for Pain for up to 30 days.Earliest Fill Date: 10/14/17 HYDROcodone-acetaminophen (NORCO) 5-325 mg per tablet Take 1 tablet by mouth twice daily as needed for up to 30 days. For moderate pain (not severe to need oxycodone).Earliest Fill Date: 10/14/17 mupirocin (BACTROBAN) 2 % cream Apply to affected skin twice daily (May substitute with generic equivalent.; ointment can be given if cream note covered) triamcinolone acetonide (KENALOG) 0.1 % cream Apply 1 application to affected area three times daily. (80 gram tube) gabapentin (NEURONTIN) 600 mg tablet TAKE 1 AND 1/2 (ONE AND ONE-HALF) TABLETS BY MOUTH THREE TIMES DAILY Calcium Citrate-Vitamin D3 (CITRACAL+D) 315-250 mg-unit tab Take 1 tablet by mouth three times daily with meals. potassium chloride (K-TAB) 10 mEq tablet Take 2 tablets by mouth three times daily. As directed metFORMIN (GLUCOPHAGE) 500 mg tablet Take 1 tablet by mouth twice daily. blood sugar diagnostic (ONETOUCH ULTRA TEST) test strip Test Blood Sugars twice a day DX: E11.9 Blood-Glucose Meter (ONETOUCH ULTRAMINI) monitoring kit Test Blood Sugars twice a day DX: E11.9 lancets (ONE TOUCH DELICA) 33 gauge misc Test blood sugar(s) twice a day. Dx: Type 2 DM - Controlled E11.9 Insulin: No sertraline (ZOLOFT) 100 mg tablet Take 1 tablet by mouth twice daily. mometasone-formoterol (DULERA) 200-5 mcg/actuation inhaler Inhale 2 Puffs as instructed twice daily. traZODone (DESYREL) 150 mg tablet Take 1 tablet by mouth daily at bedtime. Omeprazole 40 mg capsule Take 1 capsule by mouth once daily. levalbuterol tartrate HFA (XOPENEX HFA) 45 mcg/actuation inhaler Inhale 1-2 Puffs as instructed every 4 hours as needed. benzonatate (TESSALON PERLE) 100 mg capsule Take 1 capsule by mouth three times daily as needed. loratadine-pseudoephedrine ER (LORATA-D) 10-240 mg Tb24 Take 1 tablet by mouth once daily as needed. zolpidem (AMBIEN) 10 mg tab TAKE 1 TABLET EVERY DAY AT BEDTIME NEEDED for insomnia. COMPOUNDED PRESCRIPTION Diabetic shoes Diagnoses: DM foot deformity and poor circulation. M21.969, R09.89. Dispense 1 pair of shoes levothyroxine (SYNTHROID) 137 mcg tablet Take 1 tablet by mouth daily before breakfast. [facility] Knee hi JONNY hose, Latex free (R60.9) Venous stasis edema, legs lisinopril 2.5 mg tablet Take 1 tablet by mouth once daily. levalbuterol (XOPENEX) 1.25 mg/3 mL nebulizer solution Use 1 Ampule via nebulizer every 4 hours as needed for Wheezing/Shortness of Breath. clindamycin (CLEOCIN) 1 % external solution Apply 1 application to affected area four times daily as needed. Dispense 1 bottle, not 1ml mometasone (ELOCON) 0.1 % cream Apply 1 application to affected area once daily. For scalp; Rinse the next morning after applying at bedtime. oxybutynin (DITROPAN) 5 mg tablet Take 1 tablet by mouth twice daily. COMPOUNDED PRESCRIPTION Please add humidifer to patient's oxygen. Dx; z99.81, z90.2, j44.9 fluticasone (FLONASE) 50 mcg/actuation nasal spray Use 2 Sprays in each nostril once daily. Rinse mouth after use. FA/MV,CA,IRON,MIN/LYCOPENE/LUT (MULTIVITAL ORAL) Take by mouth. VITAMIN B COMPLEX (SUPER B COMPLEX ORAL) Take by mouth once daily. mometasone-formoterol (DULERA) 200-5 mcg/actuation inhaler Inhale 2 Puffs as instructed twice daily. COMPOUNDED PRESCRIPTION Diabetic Shoes Diagnosis: DM type 2 250.00, Pes Planus 754.61, Neuropathic pain 729.2, Hammer toes 735.4 COMPOUNDED PRESCRIPTION Diabetic shoes Diagnosis: 250.00 furosemide (LASIX) 80 mg tablet Take 0.5-1 tablets by mouth once daily. as directed (last RX November 2013) guaiFENesin 600 mg 12 hr tablet Take 2 tablets by mouth twice daily as needed for Cold/Allergy Symptoms. COMPOUNDED PRESCRIPTION Ketoprofen 5%, Amitriptyline 2%, Gabapentin 2%, Lidocaine 5% EPINEPHrine (EPIPEN) 0.3 mg/0.3 mL (1:1,000) PnIj Inject intramuscularly. USE DIRECTED FOR ALLERGIC REACTION. SEEK EMERGENT MEDICAL CARE IMMEDIATELY AFTER USE. COMPOUNDED PRESCRIPTION NEBULIZER FOR HOME USE. DX: 493.90 asthma, h/o lung cancer, s/p lung lobectomyUse as directed COMPOUNDED PRESCRIPTION Firm Mattress for hospital bedDiagnoses: 782.3 Venous stasis edema, legs; V45.89 S/P lobectomy of lung, JOSE multivitamin tablet Take 1 tablet by mouth once daily. NIACIN ORAL Take 1 tablet by mouth once daily. COMPOUNDED PRESCRIPTION Hospital bed ( MEGAN, DJD back, fibromyalgia) 729.1, 715.00, 721.3, 327.3)Would like 2 half rails on bed. wt is 316# COMPOUNDED PRESCRIPTION For [facility]. Patient needs large oxygen tanks for within the home, and portable tanks for when she is out. Dx: s/p lobectomy of lung JOSE v45.89, lung cancer 162.3. COMPOUNDED PRESCRIPTION Order for [facility]: Discontinue liquid O2 COMPOUNDED PRESCRIPTION Add humidification to oxygen through the concentratorDiagnosis: COMPOUNDED PRESCRIPTION Heavy duty lift chair, ( pt wt is 321 # ) 6 feet tall. ( 714.0 rheumatoid arthritis, 729.1 Fibromyalgia, having lung surgery and will need to sit upright post operatively, currently short of breath, ) omega-3 fatty acids 1,000 mg ORAL Cap Take 1,000 mg by mouth twice daily. COMPOUNDED PRESCRIPTION Scooter Needs new one since other one needs replaced. Diagnoses: 714.0,721.3,278.01,715.00 COMPOUNDED PRESCRIPTION C-Flex nasal CPCP mask with head gear and tubing supplies. No current facility-administered medications for this visit. Medications and allergies reviewed by this provider. SOCIAL HISTORY Social History Marital status: Spouse name: Juan Pablo Years of education: Number of children: Occupational History Occupation Employer Comment [employer]* Social History Main Topics Smoking status: Former Smoker Packs/day: 1.50 Years: 18.00 Types: Cigarettes Quit date: 03/21/1980 Smokeless tobacco: Never Used Alcohol use: No Drug use: No REVIEW OF SYSTEMS GENERAL: No weight loss, malaise or fevers NECK: Negative for lumps, goiter, pain and significant neck swelling RESPIRATORY: Negative for cough, hemoptysis, wheezing, COPD, dyspnea or shortness of breath CARDIOVASCULAR: Negative for chest pain, leg swelling, hypertension, CHF or palpitations GI: No nausea, vomiting, or diarrhea and No heartburn or reflux symptoms : No history of dysuria, frequency or incontinence SKIN: Negative for lesions, rash, and itching ENDOCRINE: See HPI OBJECTIVE: BP 118/76 Pulse 112 Resp 20 SpO2 94% . Vital signs reviewed by this provider. PHYSICAL EXAMINATION: General appearance: Well appearing, alert, in no acute distress, well-hydrated, well nourished., Morbidly obese and Wheelchair Skin: Skin color, texture, turgor normal, no suspicious rashes or lesions Lungs: Lungs clear to auscultation. No wheezing, rhonchi, rales Heart: RRR without murmur, gallop, or rubs. No ectopy Abdomen: Abdomen soft, non-tender. Bowel sounds normal. Extremities: No deformities, edema, skin discoloration, clubbing or cyanosis. Good capillary refill. , Pulses: 2+, unable to fully assess lower extremities due to braces and shoes. She was wearing compression stockings and no obvious edema noted. ASSESSMENT/PLAN: 1. Controlled type 2 diabetes mellitus without complication, without long-term current use of insulin (HCC) - ICD9: 250.00, ICD10: E11.9 (primary diagnosis) Controlled. - Continue current medications - Blood glucose monitoring on a once a day schedule - Ophthalmology referral for eval/management of diabetic eye changes - Encouraged regular aerobic exercise and weight loss - Follow up in 3 months, sooner should any other issues arise. - Discussed diabetic education issues of fdc diabetic complications, hypoglycemic symptoms, hyperglycemic symptoms, diet, medications- side effects and need for compliance, importance of exercise and importance of annual examinations with Opthalmology with patient. - will need foot exam at next visit. 2. Essential hypertension - ICD9: 401.9, ICD10: I10 - good control - Continue current medication(s) - Encouraged dietary sodium restriction/DASH diet - Recommended regular aerobic exercise. - Recommend home blood pressure monitoring, to bring results in on next visit - Discussed need and benefit for weight loss. - Recheck in 3 months, sooner should new symptoms or problems arise. - Reviewed risks of HTN and principles of treatment - Goal of BP <140/90 - Recommended no refined sugar, low refined starch, healthy oil intake (olive oil), healthy protein (fish) along the lines of the Mediterranean diet. 3. S/P lobectomy of lung, JOSE - ICD9: V45.89, ICD10: Z90.2 - continue with O2 - encouraged to contact office if still having trouble with the home care and O2. 4. History of lung cancer - ICD9: V10.11, ICD10: Z85.118 - see above 5. Morbid obesity (HCC) - ICD9: 278.01, ICD10: E66.01 - see above 6. Insomnia, unspecified type - ICD9: 780.52, ICD10: G47.00 - discussed with just seeing her for the first time and not having consistent follow up, I will defer ambian refill to PCP. Son and patient very unhappy with this and a long discussion was had. Encouraged to schedule several 3 month appointments with PCP ahead of time and keep the appointments. 7. Elevated LFTs - ICD9: 790.6, ICD10: R94.5 - will recheck and add hepatitis panel. May need to have RUQ US if still elevated. - HEPATIC FUNCTION PNL - HEP REMOTE PANEL BL 8. Screening for colon cancer - ICD9: V76.51, ICD10: Z12.11 - FECAL OCCULT BLOOD TEST Jose Soria APRN.CINDER MAN The majority of the visit was spent counseling and/or coordinating care for the patient. Xnjw-xg-foiv time was 35 minutes. Referring Provider: SELF [[id number]] Allergies As of Date: 10/25/2017 Noted Allergy Reaction ADHESIVE TAPE-SILICONES 05/26/2005 ADVAIR DISKUS (FLUTICASONE-SALMET*05/21/2014 14 - Other: See Comments Comments: vision difficulties; aggravated ocular migraines ASA (SALICYLATES) 04/16/2005 14 - Other: See Comments Comments: sensitive- she bleeds easily FENTANYL 03/18/2011 2 - Rash 9 - Itching Comments: Headaches, increased pain Roca Oxygen Products [Other] 02/25/2011 7 - Swelling Comments: Headaches IVORY SOAP (SOAP) 05/08/2013 14 - Other: See Comments Comments: Eyelid irritation and conjunctivitis (drainage and runny eyes) LATEX 11/08/2006 Comments: Sensitive PAXIL (PAROXETINE HCL) 04/19/2005 1 - Mental Status Change Comments: suicidal PENICILLINS 04/16/2005 2 - Rash Comments: generalized swelling PRILOSEC (OMEPRAZOLE) 08/23/2008 5 - Intolerance 8 - GI Upset Comments: Headache - pt. States okay since not red dye anymore RED DYE 08/19/2008 Comments: Gi upset, makes throat raw.( did not have allergy testing tho) SULFA (SULFONAMIDE ANTIBIOTICS) 01/15/2009 7 - Swelling Comments: Took bactrim without problem zithromycin [Other] 04/19/2005 Comments: swelling, rash Date Reviewed: 10/25/2017 Reviewed by: Lois Figueroa) RICHA Amezquita - Fully Assessed Primary Visit Diagnosis:Controlled type 2 diabetes mellitus without complication, without long-term current use of insulin (HCC) [E11.9] Other Visit Diagnoses:Essential hypertension [I10] S/P lobectomy of lung, JOSE [Z90.2] History of lung cancer [Z85.118] Morbid obesity (HCC) [E66.01] Insomnia, unspecified type [G47.00] Elevated LFTs [R94.5] Screening for colon cancer [Z12.11] Order(s):HEPATIC FUNCTION PNL [SQHFP] Order #: [id number] FUTURE HEP REMOTE PANEL BL [SQHREMOP] Order #: [id number] FUTURE FECAL OCCULT BLOOD TEST [SQIFOBT] Order #: [id number] FUTURE nystatin (MYCOSTATIN) powderApply 1 application to affected area four times daily.Disp: 1 BottleRfl: 2 Prescriptions as of 10/25/2017 Sig: COMPOUNDED PRESCRIPTION For [facility]. Nubia* COMPOUNDED PRESCRIPTION For [facility]. Plea* LORAZEPAM 0.5 MG TABLET Take 1 tablet by mouth once d* OXYCODONE 5 MG TABLET Take 1-2 tablets by mouth thr* HYDROCODONE 5 MG-ACETAMINOPHE* Take 1 tablet by mouth twice * MUPIROCIN 2 % TOPICAL CREAM Apply to affected skin twice * TRIAMCINOLONE ACETONIDE 0.1 %* Apply 1 application to affect* GABAPENTIN 600 MG TABLET TAKE 1 AND 1/2 (ONE AND ONE-GAURANG* CALCIUM CITRATE-VITAMIN D3 31* Take 1 tablet by mouth three * POTASSIUM CHLORIDE ER 10 MEQ * Take 2 tablets by mouth three* METFORMIN 500 MG TABLET Take 1 tablet by mouth twice * BLOOD SUGAR DIAGNOSTIC STRIPS Test Blood Sugars twice a day* BLOOD-GLUCOSE METER KIT Test Blood Sugars twice a day* LANCETS 33 GAUGE Test blood sugar(s) twice a d* SERTRALINE 100 MG TABLET Take 1 tablet by mouth twice * MOMETASONE-FORMOTEROL HFA 200* Inhale 2 Puffs as instructed * TRAZODONE 150 MG TABLET Take 1 tablet by mouth daily * OMEPRAZOLE 40 MG CAPSULE,DUNIA* Take 1 capsule by mouth once * LEVALBUTEROL HFA 45 MCG/ACTUA* Inhale 1-2 Puffs as instructe* BENZONATATE 100 MG CAPSULE Take 1 capsule by mouth three* LORATADINE-PSEUDOEPHEDRINE ER* Take 1 tablet by mouth once d* ZOLPIDEM 10 MG TABLET TAKE 1 TABLET EVERY DAY AT BE* COMPOUNDED PRESCRIPTION Diabetic shoes Diagnoses: D* LEVOTHYROXINE 137 MCG TABLET Take 1 tablet by mouth daily * MISCELLANEOUS MEDICAL SUPPLY * Knee hi JONNY hose, Latex free * LISINOPRIL 2.5 MG TABLET Take 1 tablet by mouth once d* LEVALBUTEROL 1.25 MG/3 ML GILLIAN* Use 1 Ampule via nebulizer ev* CLINDAMYCIN PHOSPHATE 1 % TOP* Apply 1 application to affect* MOMETASONE 0.1 % TOPICAL CREAM Apply 1 application to affect* OXYBUTYNIN CHLORIDE 5 MG TABL* Take 1 tablet by mouth twice * COMPOUNDED PRESCRIPTION Please add humidifer to patie* FLUTICASONE 50 MCG/ACTUATION * Use 2 Sprays in each nostril * MULTIVITAL ORAL Take by mouth. SUPER B COMPLEX ORAL Take by mouth once daily. MOMETASONE-FORMOTEROL HFA 200* Inhale 2 Puffs as instructed * COMPOUNDED PRESCRIPTION Diabetic Shoes Diagnosis: * COMPOUNDED PRESCRIPTION Diabetic shoes Diagnosis: 25* FUROSEMIDE 80 MG TABLET Take 0.5-1 tablets by mouth o* GUAIFENESIN ER 600 MG TABLET,* Take 2 tablets by mouth twice* COMPOUNDED PRESCRIPTION Ketoprofen 5%, Amitriptyline * EPINEPHRINE 0.3 MG/0.3 ML INJ* Inject intramuscularly. USE * COMPOUNDED PRESCRIPTION NEBULIZER FOR HOME USE. DX: * COMPOUNDED PRESCRIPTION Firm Mattress for hospital be* * MULTIVITAMIN TABLET Take 1 tablet by mouth once d* * NIACIN ORAL Take 1 tablet by mouth once d* COMPOUNDED PRESCRIPTION Hospital bed ( MEGAN, DJD b* COMPOUNDED PRESCRIPTION For [facility]. Nubia* COMPOUNDED PRESCRIPTION Order for [facility]: Disco* COMPOUNDED PRESCRIPTION Add humidification to oxygen * COMPOUNDED PRESCRIPTION Heavy duty lift chair, ( pt w* * OMEGA-3 FATTY ACIDS 1,000 MG * Take 1,000 mg by mouth twice * COMPOUNDED PRESCRIPTION Scooter Needs new one since* COMPOUNDED PRESCRIPTION C-Flex nasal CPCP mask with h* NYSTATIN 100,000 UNIT/GRAM TO* Apply 1 application to affect* Problem List As Of Date 10/25/2017 Noted Resolved Diabetes mellitus type 2, controlled, without c*INVALID FOR* Priority: C More... Depressive disorder, not elsewhere classified [*INVALID FOR* Priority: E More... MEGAN (obstructive sleep apnea) [G47.33] INVALID FOR* Priority: B More... Essential hypertension [I10] INVALID FOR* Priority: D More... Hypothyroidism [E03.9] INVALID FOR* Priority: E More... Esophageal reflux [K21.9] INVALID FOR* More... Restless Legs Syndrome [G25.89] INVALID FOR* More... Allergic rhinitis, cause unspecified [J30.9] INVALID FOR* More... Primary osteoarthritis involving multiple joint*INVALID FOR* Priority: D More... Rheumatoid arthritis [M06.9] INVALID FOR*12/26/2010 Priority: D PMH - PAST MEDICAL HISTORY OF 08/09/2013 More... LUMBOSACRAL SPONDYLOSIS [M47.817] INVALID FOR* Morbid obesity [E66.01] INVALID FOR* Priority: D More... Sprain of lumbar region [S33.5XXA] INVALID FOR*08/09/2013 Pure hyperglyceridemia [E78.1] Priority: D More... Insomnia, unspecified [G47.00] INVALID FOR*08/09/2013 Venous stasis edema, legs [R60.9] Priority: D More... Cellulitis and abscess of leg, except foot [L03* 08/09/2013 More... CLUSTER HEADACHE SYN NOS [G44.009] INVALID FOR* More... CONGENITAL PES PLANUS [Q66.50] INVALID FOR* Fibromyalgia [M79.7] More... Acute postoperative pain [G89.18] INVALID FOR*08/09/2013 Priority: D More... Left video-assisted thoracoscopic surgery upper*INVALID FOR* Priority: A More... D/C planning [Z71.89] INVALID FOR*08/09/2013 Priority: M More... DVT prophylaxis [HQS7496] INVALID FOR*08/09/2013 Priority: C More... R/o pressure ulcer on nose [L89.899] INVALID FOR*08/09/2013 Priority: I More... 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 S/P lobectomy of lung, JOSE [Z90.2] INVALID FOR* Drug induced neutropenia [D70.2] INVALID FOR*05/20/2011 History of lung cancer [Z85.118] INVALID FOR* More... Neuropathic pain [M79.2] INVALID FOR* More... Pain in joint, lower leg [M25.569] INVALID FOR* Anxiety [F41.9] INVALID FOR* More... Insomnia [G47.00] INVALID FOR* More... Hypokalemia [E87.6] INVALID FOR*11/14/2013 Lung cancer (HCC) [C34.90] INVALID FOR* Acquired bilateral hammer toes [M20.41, M20.42] INVALID FOR* Neuralgia, neuritis, and radiculitis, unspecifi*INVALID FOR* Weakness [R53.1] INVALID FOR* Difficulty walking [R26.2] INVALID FOR* Prescriptions ordered this encounter Disp Refills Start End NYSTATIN 100,000 UNIT/GRAM TOPICAL P* 1 Alessandro* 2 10/25/2017 Route: TOPICAL Sig: Apply 1 application to affected area four times daily. Follow-up and Disposition History Recorded Encounter Status:Closed by JOSE SORIA on 10/27/17 COMP METABOLIC PANEL Collected: 10/05/2017 Status: F Source: [place] 11:14 AM [facility] REPOSITORY TYPE CODE TESTS RESULT OUT OF REFERENCE UNITS RANGE LAB TP 6.3-8.0 g/dL Protein, High Total 8.6 LAB ALB 3.9-4.9 g/dL Albumin 3.9 LAB CA 8.5-10.2 mg/dL Calcium, Total 10.2 LAB TBIL 0.2-1.3 mg/dL Bilirubin, Total 0.4 LAB ALKP 32-117 U/L Alkaline Phosphatase 48 LAB AST 13-35 U/L AST High 75 LAB GLU 74-99 mg/dL Glucose High 147 Result Comment: The [place] Diabetes [employer] (ADA) provides guidance for cutoff values for fasting glucose and random glucose. The ADA defines fasting as no caloric intake for at least 8 hours. Fas ting plasma glucose results between 100 to 125 mg/dL indicate increased risk for diabetes (prediabetes). Fasting plasma glucose results greater than or equal to 126 mg/dL meet the criteria for diagnosis of diabetes. In the absence of unequivocal hyperglycemia, results should be confirmed by repeat testing. In a patient with classic symptoms of hyperglycemia or hyperglycemic crisis, random plasma glucose results greater than or equal to 200 mg/dL meet the criteria for diagnosis of diabetes. Reference: Standards of Medical Care in Diabetes 2016, [place] [employer]. Diabetes Care. 2016.39(Suppl 1). LAB BUN 7-21 mg/dL BUN 8 LAB CRET 0.58-0.96 mg/dL Creatinine 0.65 LAB NA 136-144 mmol/L Sodium 140 LAB K 3.7-5.1 mmol/L Potassium 4.6 LAB CL 97-105 mmol/L Chloride Low 92 LAB CO2 22-30 mmol/L CO2 30 LAB AGAP 9-18 mmol/L Anion Gap 18 LAB ALT 7-38 U/L ALT 26 LAB GFRAA eGFR- Amer. >60 LAB GFRNAA . eGFR-All Other Races >60 Result Comment: eGFR (Estimated GFR) Units of measure: mL/min/1.73 meters squared eGFR is derived from the reexpressed MDRD Study equation using the following parameters: serum creatinine, age, gender and race. The creatinine assay has been calibrated to be traceable to IDMS. An eGFR <60 mL/min/1.73m2 for >3 months is consistent with chronic kidney disease. Refer to KDOQI guidelines for clinical interpretation. In patients with unstable renal function, e.g. those with acute kidney injury, the eGFR may not accurately reflect actual GFR. Performed By: #### CMP, LIPB, HBA1C #### [facility] [address] [place], [place] [address] LIPID PANEL, BASIC Collected: 10/05/2017 Status: F Source: [place] 11:[address] [facility] REPOSITORY TYPE CODE TESTS RESULT OUT OF REFERENCE UNITS RANGE LAB CHOL <200 mg/dL Cholesterol 153 Result Comment: <200 mg/dL, Desirable 200-239 mg/dL, Borderline high >239 mg/dL, High LAB TRIGLY <150 mg/dL Triglyceride High 175 Result Comment: <150 mg/dL, Normal 150-199 mg/dL, Borderline high 200-499 mg/dL, High >499 mg/dL, Very high LAB HDL >39 mg/dL HDL-Cholesterol Low 39 Result Comment: 40-59 mg/dL, Acceptable >59 mg/dL, High: Negative risk factor for coronary heart disease <40 mg/dL, Low: Positive risk factor for coronary heart disease LAB LDL <100 mg/dL LDL-Cholesterol 79 Result Comment: <100 mg/dL, Optimal 100-129 mg/dL, Near optimal/above optimal 130-159 mg/dL, Borderline high 160-189 mg/dL, High >189 mg/dL, Very high Secondary prevention optimal LDL Cholesterol levels are recommended to be < 70 mg/dL LAB NONHDL <130 mg/dL Non HDL Cholesterol 114 Result Comment: <130 mg/dL, Optimal 130-159 mg/dL, Near optimal/above optimal 160-189 mg/dL, Borderline high 190-219 mg/dL, High >219 mg/dL, Very high Secondary prevention optimal non HDL Cholesterol levels are recommended to be < 100 mg/dL LAB FT hrs Fasting Time 12 LAB VLDL <30 mg/dL High VLDL Cholesterol 35 LAB TCHDL <5.10 TC:HDL Ratio 3.92 LAB LDLHDL <2.54 LDL:HDL Ratio 2.03 Result Comment: Reference: 1. National Cholesterol Education Program ATP III Guideline At-A-Glance Quick Desk Reference: National Heart, Lung, and Blood [place]. National Institutes of Health. 2001: NIH Publication No. 01-3305. 2. An International Atherosclerosis Society position paper: global recommendations for the management of dyslipidemia: executive summary, Atherosclerosis. 2014: 232(2):410-413. Performed By: #### CMP, LIPB, HBA1C #### [facility] [address] [place], [place] [address] HEMOGLOBIN A1C Collected: 10/05/2017 Status: F Source: [place] 11:14 AM [facility] REPOSITORY TYPE CODE TESTS RESULT OUT OF REFERENCE UNITS RANGE LAB HGBA1C 4.3-5.6 % High Hemoglobin A1c 5.7 LAB HBA0 mg/dL Est. Average Glucose 117 Result Comment: eAG: (Estimated average glucose) is a calculated value from HgbA1c and is retail account representative of the average blood glucose level in the last 2-3 month period. Performed By: #### CMP, LIPB, HBA1C #### [facility] [address] [place], [place] [id number] TSH Collected: 10/05/2017 Status: F Source: [place] 11:14 AM [facility] REPOSITORY TYPE CODE TESTS RESULT OUT OF RANGE REFERENCE UNITS LAB TSH 0.400-5.500 uU/mL TSH 3.820 Performed By: #### TSH #### [facility] [address] [place], [place] [address] CNPTOUTREACH Observed: 09/27/2017 Status: COMPLETED Source: [place] 12:00 AM [facility] REPOSITORY Patient Outreach ([facility]) ALEA ANDRADE ([id number]) 1940 F Date Time Provider Department 09/27/17 [facility] During your visit today, we recorded the following information about you: Allergies As of Date: 09/27/2017 Noted Allergy Reaction ADHESIVE TAPE-SILICONES 05/26/2005 ADVAIR DISKUS (FLUTICASONE-SALMET*05/21/2014 14 - Other: See Comments Comments: vision difficulties; aggravated ocular migraines ASA (SALICYLATES) 04/16/2005 14 - Other: See Comments Comments: sensitive- she bleeds easily FENTANYL 03/18/2011 2 - Rash 9 - Itching Comments: Headaches, increased pain [employer] [Other] 02/25/2011 7 - Swelling Comments: Headaches IVORY SOAP (SOAP) 05/08/2013 14 - Other: See Comments Comments: Eyelid irritation and conjunctivitis (drainage and runny eyes) LATEX 11/08/2006 Comments: Sensitive PAXIL (PAROXETINE HCL) 04/19/2005 1 - Mental Status Change Comments: suicidal PENICILLINS 04/16/2005 2 - Rash Comments: generalized swelling PRILOSEC (OMEPRAZOLE) 08/23/2008 5 - Intolerance 8 - GI Upset Comments: Headache - pt. States okay since not red dye anymore RED DYE 08/19/2008 Comments: Gi upset, makes throat raw.( did not have allergy testing tho) SULFA (SULFONAMIDE ANTIBIOTICS) 01/15/2009 7 - Swelling Comments: Took bactrim without problem zithromycin [Other] 04/19/2005 Comments: swelling, rash Date Reviewed: 04/19/2017 Reviewed by: Yaneli Mock Ma - Fully Assessed Visit Diagnosis:Medication management [Z79.899] Order(s):TSH BLD [SQTSH] Order #: [id number] FUTURE Prescriptions as of 09/27/2017 Sig: X MUPIROCIN 2 % TOPICAL CREAM Apply to affected skin twice * X TRIAMCINOLONE ACETONIDE 0.1 %* Apply 1 application to affect* GABAPENTIN 600 MG TABLET TAKE 1 AND 1/2 (ONE AND ONE-GAURANG* CALCIUM CITRATE-VITAMIN D3 31* Take 1 tablet by mouth three * POTASSIUM CHLORIDE ER 10 MEQ * Take 2 tablets by mouth three* METFORMIN 500 MG TABLET Take 1 tablet by mouth twice * X OXYCODONE 5 MG TABLET Take 1-2 tablets by mouth thr* X HYDROCODONE 5 MG-ACETAMINOPHE* Take 1 tablet by mouth twice * BLOOD SUGAR DIAGNOSTIC STRIPS Test Blood Sugars twice a day* BLOOD-GLUCOSE METER KIT Test Blood Sugars twice a day* LANCETS 33 GAUGE Test blood sugar(s) twice a d* SERTRALINE 100 MG TABLET Take 1 tablet by mouth twice * MOMETASONE-FORMOTEROL HFA 200* Inhale 2 Puffs as instructed * TRAZODONE 150 MG TABLET Take 1 tablet by mouth daily * X LORAZEPAM 0.5 MG TABLET Take 1 tablet by mouth once d* OMEPRAZOLE 40 MG CAPSULE,DUNIA* Take 1 capsule by mouth once * LEVALBUTEROL HFA 45 MCG/ACTUA* Inhale 1-2 Puffs as instructe* X COMPOUNDED PRESCRIPTION For [facility]. Nubia* X COMPOUNDED PRESCRIPTION For [facility]. Plea* BENZONATATE 100 MG CAPSULE Take 1 capsule by mouth three* LORATADINE-PSEUDOEPHEDRINE ER* Take 1 tablet by mouth once d* X ZOLPIDEM 10 MG TABLET TAKE 1 TABLET EVERY DAY AT BE* COMPOUNDED PRESCRIPTION Diabetic shoes Diagnoses: D* X LEVOTHYROXINE 137 MCG TABLET Take 1 tablet by mouth daily * MISCELLANEOUS MEDICAL SUPPLY * Knee hi JONNY hose, Latex free * LISINOPRIL 2.5 MG TABLET Take 1 tablet by mouth once d* LEVALBUTEROL 1.25 MG/3 ML GILLIAN* Use 1 Ampule via nebulizer ev* CLINDAMYCIN PHOSPHATE 1 % TOP* Apply 1 application to affect* MOMETASONE 0.1 % TOPICAL CREAM Apply 1 application to affect* OXYBUTYNIN CHLORIDE 5 MG TABL* Take 1 tablet by mouth twice * COMPOUNDED PRESCRIPTION Please add humidifer to patie* FLUTICASONE 50 MCG/ACTUATION * Use 2 Sprays in each nostril * MULTIVITAL ORAL Take by mouth. SUPER B COMPLEX ORAL Take by mouth once daily. MOMETASONE-FORMOTEROL HFA 200* Inhale 2 Puffs as instructed * COMPOUNDED PRESCRIPTION Diabetic Shoes Diagnosis: * COMPOUNDED PRESCRIPTION Diabetic shoes Diagnosis: 25* FUROSEMIDE 80 MG TABLET Take 0.5-1 tablets by mouth o* GUAIFENESIN ER 600 MG TABLET,* Take 2 tablets by mouth twice* COMPOUNDED PRESCRIPTION Ketoprofen 5%, Amitriptyline * EPINEPHRINE 0.3 MG/0.3 ML INJ* Inject intramuscularly. USE * COMPOUNDED PRESCRIPTION NEBULIZER FOR HOME USE. DX: * COMPOUNDED PRESCRIPTION Firm Mattress for hospital be* * MULTIVITAMIN TABLET Take 1 tablet by mouth once d* * NIACIN ORAL Take 1 tablet by mouth once d* COMPOUNDED PRESCRIPTION Hospital bed ( MEGAN, DJD b* COMPOUNDED PRESCRIPTION For [facility]. Nubia* COMPOUNDED PRESCRIPTION Order for [facility]: Disco* COMPOUNDED PRESCRIPTION Add humidification to oxygen * COMPOUNDED PRESCRIPTION Heavy duty lift chair, ( pt w* * OMEGA-3 FATTY ACIDS 1,000 MG * Take 1,000 mg by mouth twice * COMPOUNDED PRESCRIPTION Scooter Needs new one since* COMPOUNDED PRESCRIPTION C-Flex nasal CPCP mask with h* Problem List As Of Date 09/27/2017 Noted Resolved Diabetes mellitus type 2, controlled, without c*INVALID FOR* Priority: C More... Depressive disorder, not elsewhere classified [*INVALID FOR* Priority: E More... MEGAN (obstructive sleep apnea) [G47.33] INVALID FOR* Priority: B More... Essential hypertension [I10] INVALID FOR* Priority: D More... Hypothyroidism [E03.9] INVALID FOR* Priority: E More... Esophageal reflux [K21.9] INVALID FOR* More... Restless Legs Syndrome [G25.89] INVALID FOR* More... Allergic rhinitis, cause unspecified [J30.9] INVALID FOR* More... Primary osteoarthritis involving multiple joint*INVALID FOR* Priority: D More... Rheumatoid arthritis [M06.9] INVALID FOR*12/26/2010 Priority: D PMH - PAST MEDICAL HISTORY OF 08/09/2013 More... LUMBOSACRAL SPONDYLOSIS [M47.817] INVALID FOR* Morbid obesity [E66.01] INVALID FOR* Priority: D More... Sprain of lumbar region [S33.5XXA] INVALID FOR*08/09/2013 Pure hyperglyceridemia [E78.1] Priority: D More... Insomnia, unspecified [G47.00] INVALID FOR*08/09/2013 Venous stasis edema, legs [R60.9] Priority: D More... Cellulitis and abscess of leg, except foot [L03* 08/09/2013 More... CLUSTER HEADACHE SYN NOS [G44.009] INVALID FOR* More... CONGENITAL PES PLANUS [Q66.50] INVALID FOR* Fibromyalgia [M79.7] More... Acute postoperative pain [G89.18] INVALID FOR*08/09/2013 Priority: D More... Left video-assisted thoracoscopic surgery upper*INVALID FOR* Priority: A More... D/C planning [Z71.89] INVALID FOR*08/09/2013 Priority: M More... DVT prophylaxis [[id number]] INVALID FOR*08/09/2013 Priority: C More... R/o pressure ulcer on nose [L89.899] INVALID FOR*08/09/2013 Priority: I More... 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 S/P lobectomy of lung, JOSE [Z90.2] INVALID FOR* Drug induced neutropenia [D70.2] INVALID FOR*05/20/2011 History of lung cancer [Z85.118] INVALID FOR* More... Neuropathic pain [M79.2] INVALID FOR* More... Pain in joint, lower leg [M25.569] INVALID FOR* Anxiety [F41.9] INVALID FOR* More... Insomnia [G47.00] INVALID FOR* More... Hypokalemia [E87.6] INVALID FOR*11/14/2013 Lung cancer (HCC) [C34.90] INVALID FOR* Acquired bilateral hammer toes [M20.41, M20.42] INVALID FOR* Neuralgia, neuritis, and radiculitis, unspecifi*INVALID FOR* Weakness [R53.1] INVALID FOR* Difficulty walking [R26.2] INVALID FOR* Encounter Status:Closed by RAVI HENDRICKS on 12/30/17 CNPTOUTREACH Observed: 06/28/2017 Status: COMPLETED Source: [place] 12:00 AM [facility] REPOSITORY Patient Outreach ([facility]) ALEA ANDRADE ([id number]) 1940 F Date Time Provider Department 06/28/17 DIEGO CRISOSTOMO [facility] During your visit today, we recorded the following information about you: Allergies As of Date: 06/28/2017 Noted Allergy Reaction ADHESIVE TAPE-SILICONES 05/26/2005 ADVAIR DISKUS (FLUTICASONE-SALMET*05/21/2014 14 - Other: See Comments Comments: vision difficulties; aggravated ocular migraines ASA (SALICYLATES) 04/16/2005 14 - Other: See Comments Comments: sensitive- she bleeds easily FENTANYL 03/18/2011 2 - Rash 9 - Itching Comments: Headaches, increased pain [employer] [Other] 02/25/2011 7 - Swelling Comments: Headaches IVORY SOAP (SOAP) 05/08/2013 14 - Other: See Comments Comments: Eyelid irritation and conjunctivitis (drainage and runny eyes) LATEX 11/08/2006 Comments: Sensitive PAXIL (PAROXETINE HCL) 04/19/2005 1 - Mental Status Change Comments: suicidal PENICILLINS 04/16/2005 2 - Rash Comments: generalized swelling PRILOSEC (OMEPRAZOLE) 08/23/2008 5 - Intolerance 8 - GI Upset Comments: Headache - pt. States okay since not red dye anymore RED DYE 08/19/2008 Comments: Gi upset, makes throat raw.( did not have allergy testing tho) SULFA (SULFONAMIDE ANTIBIOTICS) 01/15/2009 7 - Swelling Comments: Took bactrim without problem zithromycin [Other] 04/19/2005 Comments: swelling, rash Date Reviewed: 04/19/2017 Reviewed by: Yaneli Mock Ma - Fully Assessed Visit Diagnosis:Medication management [Z79.899] Order(s):ALBUMIN/CREAT RATIO RND UR [SQUACR] Order #: [id number] FUTURE Prescriptions as of 06/28/2017 Sig: TRAZODONE 150 MG TABLET Take 1 tablet by mouth daily * X LORAZEPAM 0.5 MG TABLET Take 1 tablet by mouth once d* X HYDROCODONE 5 MG-ACETAMINOPHE* Take 1 tablet by mouth twice * X TRIAMCINOLONE ACETONIDE 0.1 %* Apply 1 application to affect* OMEPRAZOLE 40 MG CAPSULE,DUNIA* Take 1 capsule by mouth once * LEVALBUTEROL HFA 45 MCG/ACTUA* Inhale 1-2 Puffs as instructe* X OXYCODONE 5 MG TABLET Take 1-2 tablets by mouth thr* X GABAPENTIN 600 MG TABLET TAKE 1 AND 1/2 (ONE AND ONE-GAURANG* X COMPOUNDED PRESCRIPTION For [facility]. Nubia* X COMPOUNDED PRESCRIPTION For [facility]. Plea* BENZONATATE 100 MG CAPSULE Take 1 capsule by mouth three* LORATADINE-PSEUDOEPHEDRINE ER* Take 1 tablet by mouth once d* X ZOLPIDEM 10 MG TABLET TAKE 1 TABLET EVERY DAY AT BE* X MOMETASONE-FORMOTEROL HFA 200* Inhale 2 Puffs as instructed * X MUPIROCIN 2 % TOPICAL CREAM Apply to affected skin twice * COMPOUNDED PRESCRIPTION Diabetic shoes Diagnoses: D* X METFORMIN 500 MG TABLET Take 1 tablet by mouth twice * X POTASSIUM CHLORIDE ER 10 MEQ * Take 2 tablets by mouth three* X CALCIUM CITRATE-VITAMIN D3 31* Take 1 tablet by mouth three * X LEVOTHYROXINE 137 MCG TABLET Take 1 tablet by mouth daily * X SERTRALINE 100 MG TABLET Take 1 tablet by mouth twice * MISCELLANEOUS MEDICAL SUPPLY * Knee hi JONNY hose, Latex free * LISINOPRIL 2.5 MG TABLET Take 1 tablet by mouth once d* LEVALBUTEROL 1.25 MG/3 ML GILLIAN* Use 1 Ampule via nebulizer ev* CLINDAMYCIN PHOSPHATE 1 % TOP* Apply 1 application to affect* MOMETASONE 0.1 % TOPICAL CREAM Apply 1 application to affect* OXYBUTYNIN CHLORIDE 5 MG TABL* Take 1 tablet by mouth twice * COMPOUNDED PRESCRIPTION Please add humidifer to patie* FLUTICASONE 50 MCG/ACTUATION * Use 2 Sprays in each nostril * MULTIVITAL ORAL Take by mouth. SUPER B COMPLEX ORAL Take by mouth once daily. MOMETASONE-FORMOTEROL HFA 200* Inhale 2 Puffs as instructed * COMPOUNDED PRESCRIPTION Diabetic Shoes Diagnosis: * COMPOUNDED PRESCRIPTION Diabetic shoes Diagnosis: 25* FUROSEMIDE 80 MG TABLET Take 0.5-1 tablets by mouth o* GUAIFENESIN ER 600 MG TABLET,* Take 2 tablets by mouth twice* X BLOOD SUGAR DIAGNOSTIC STRIPS testing 2 times daily diag 2* COMPOUNDED PRESCRIPTION Ketoprofen 5%, Amitriptyline * EPINEPHRINE 0.3 MG/0.3 ML INJ* Inject intramuscularly. USE * COMPOUNDED PRESCRIPTION NEBULIZER FOR HOME USE. DX: * COMPOUNDED PRESCRIPTION Firm Mattress for hospital be* * MULTIVITAMIN TABLET Take 1 tablet by mouth once d* * NIACIN ORAL Take 1 tablet by mouth once d* COMPOUNDED PRESCRIPTION Hospital bed ( MEGAN, DJD b* COMPOUNDED PRESCRIPTION For [facility]. Nubia* COMPOUNDED PRESCRIPTION Order for [facility]: Disco* COMPOUNDED PRESCRIPTION Add humidification to oxygen * COMPOUNDED PRESCRIPTION Heavy duty lift chair, ( pt w* * OMEGA-3 FATTY ACIDS 1,000 MG * Take 1,000 mg by mouth twice * COMPOUNDED PRESCRIPTION Scooter Needs new one since* X BuckI KIT Use as directed. COMPOUNDED PRESCRIPTION C-Flex nasal CPCP mask with h* Problem List As Of Date 06/28/2017 Noted Resolved Diabetes mellitus type 2, controlled, without c*INVALID FOR* Priority: C More... Depressive disorder, not elsewhere classified [*INVALID FOR* Priority: E More... MEGAN (obstructive sleep apnea) [G47.33] INVALID FOR* Priority: B More... Essential hypertension [I10] INVALID FOR* Priority: D More... Hypothyroidism [E03.9] INVALID FOR* Priority: E More... Esophageal reflux [K21.9] INVALID FOR* More... Restless Legs Syndrome [G25.89] INVALID FOR* More... Allergic rhinitis, cause unspecified [J30.9] INVALID FOR* More... Primary osteoarthritis involving multiple joint*INVALID FOR* Priority: D More... Rheumatoid arthritis [M06.9] INVALID FOR*12/26/2010 Priority: D PMH - PAST MEDICAL HISTORY OF 08/09/2013 More... LUMBOSACRAL SPONDYLOSIS [M47.817] INVALID FOR* Morbid obesity [E66.01] INVALID FOR* Priority: D More... Sprain of lumbar region [S33.5XXA] INVALID FOR*08/09/2013 Pure hyperglyceridemia [E78.1] Priority: D More... Insomnia, unspecified [G47.00] INVALID FOR*08/09/2013 Venous stasis edema, legs [R60.9] Priority: D More... Cellulitis and abscess of leg, except foot [L03* 08/09/2013 More... CLUSTER HEADACHE SYN NOS [G44.009] INVALID FOR* More... CONGENITAL PES PLANUS [Q66.50] INVALID FOR* Fibromyalgia [M79.7] More... Acute postoperative pain [G89.18] INVALID FOR*08/09/2013 Priority: D More... Left video-assisted thoracoscopic surgery upper*INVALID FOR* Priority: A More... D/C planning [Z71.89] INVALID FOR*08/09/2013 Priority: M More... DVT prophylaxis [[id number]] INVALID FOR*08/09/2013 Priority: C More... R/o pressure ulcer on nose [L89.899] INVALID FOR*08/09/2013 Priority: I More... 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 S/P lobectomy of lung, JOSE [Z90.2] INVALID FOR* Drug induced neutropenia [D70.2] INVALID FOR*05/20/2011 History of lung cancer [Z85.118] INVALID FOR* More... Neuropathic pain [M79.2] INVALID FOR* More... Pain in joint, lower leg [M25.569] INVALID FOR* Anxiety [F41.9] INVALID FOR* More... Insomnia [G47.00] INVALID FOR* More... Hypokalemia [E87.6] INVALID FOR*11/14/2013 Lung cancer (HCC) [C34.90] INVALID FOR* Acquired bilateral hammer toes [M20.41, M20.42] INVALID FOR* Neuralgia, neuritis, and radiculitis, unspecifi*INVALID FOR* Weakness [R53.1] INVALID FOR* Difficulty walking [R26.2] INVALID FOR* Encounter Status:Closed by [employer], PRODUSER on 12/30/17 HEMOGLOBIN A1C Collected: 04/19/2017 Status: F Source: [place] 4:[address] [facility] REPOSITORY TYPE CODE TESTS RESULT OUT OF REFERENCE UNITS RANGE LAB HGBA1C 4.3-5.6 % High Hemoglobin A1c 5.9 LAB HBA0 mg/dL Est. Average Glucose 123 Result Comment: eAG: (Estimated average glucose) is a calculated value from HgbA1c and is retail account representative of the average blood glucose level in the last 2-3 month period. Performed By: #### HBA1C, CMP, LIPB #### [facility] [address] [place], [place] [address] COMP METABOLIC PANEL Collected: 04/19/2017 Status: F Source: [place] 4:[address] [facility] REPOSITORY TYPE CODE TESTS RESULT OUT OF REFERENCE UNITS RANGE LAB TP 6.3-8.0 g/dL Protein, High Total 8.9 LAB ALB 3.9-4.9 g/dL Low Albumin 3.7 LAB CA 8.5-10.2 mg/dL Calcium, Total 9.8 LAB TBIL 0.2-1.3 mg/dL Bilirubin, Total 0.3 LAB ALKP 32-117 U/L Alkaline Phosphatase 67 LAB AST 13-35 U/L AST 34 LAB GLU 74-99 mg/dL Glucose High 131 Result Comment: The [place] Diabetes [employer] (ADA) provides guidance for cutoff values for fasting glucose and random glucose. The ADA defines fasting as no caloric intake for at least 8 hours. Fas ting plasma glucose results between 100 to 125 mg/dL indicate increased risk for diabetes (prediabetes). Fasting plasma glucose results greater than or equal to 126 mg/dL meet the criteria for diagnosis of diabetes. In the absence of unequivocal hyperglycemia, results should be confirmed by repeat testing. In a patient with classic symptoms of hyperglycemia or hyperglycemic crisis, random plasma glucose results greater than or equal to 200 mg/dL meet the criteria for diagnosis of diabetes. Reference: Standards of Medical Care in Diabetes 2016, [place] [employer]. Diabetes Care. 2016.39(Suppl 1). LAB BUN 7-21 mg/dL BUN 13 LAB CRET 0.58-0.96 mg/dL Creatinine 0.68 LAB NA 136-144 mmol/L Sodium 139 LAB K 3.7-5.1 mmol/L Potassium 4.1 LAB CL 97-105 mmol/L Low Chloride 91 LAB CO2 22-30 mmol/L CO2 High 32 LAB AGAP 9-18 mmol/L Anion Gap 16 LAB ALT 7-38 U/L ALT 27 LAB GFRAA eGFR- Amer. >60 LAB GFRNAA . eGFR-All Other Races >60 Result Comment: eGFR (Estimated GFR) Units of measure: mL/min/1.73 meters squared eGFR is derived from the reexpressed MDRD Study equation using the following parameters: serum creatinine, age, gender and race. The creatinine assay has been calibrated to be traceable to IDMS. An eGFR <60 mL/min/1.73m2 for >3 months is consistent with chronic kidney disease. Refer to KDOQI guidelines for clinical interpretation. In patients with unstable renal function, e.g. those with acute kidney injury, the eGFR may not accurately reflect actual GFR. Performed By: #### HBA1C, CMP, LIPB #### [facility] [address] [place], [place] [address] LIPID PANEL, BASIC Collected: 04/19/2017 Status: F Source: [place] 4:[address] [facility] REPOSITORY TYPE CODE TESTS RESULT OUT OF REFERENCE UNITS RANGE LAB CHOL <200 mg/dL Cholesterol 148 Result Comment: <200 mg/dL, Desirable 200-239 mg/dL, Borderline high >239 mg/dL, High LAB TRIGLY <150 mg/dL Triglyceride High 167 Result Comment: <150 mg/dL, Normal 150-199 mg/dL, Borderline high 200-499 mg/dL, High >499 mg/dL, Very high LAB HDL >39 mg/dL HDL-Cholesterol 41 Result Comment: 40-59 mg/dL, Acceptable >59 mg/dL, High: Negative risk factor for coronary heart disease <40 mg/dL, Low: Positive risk factor for coronary heart disease LAB LDL <100 mg/dL LDL-Cholesterol 74 Result Comment: <100 mg/dL, Optimal 100-129 mg/dL, Near optimal/above optimal 130-159 mg/dL, Borderline high 160-189 mg/dL, High >189 mg/dL, Very high Secondary prevention optimal LDL Cholesterol levels are recommended to be < 70 mg/dL LAB NONHDL <130 mg/dL Non HDL Cholesterol 107 Result Comment: <130 mg/dL, Optimal 130-159 mg/dL, Near optimal/above optimal 160-189 mg/dL, Borderline high 190-219 mg/dL, High >219 mg/dL, Very high Secondary prevention optimal non HDL Cholesterol levels are recommended to be < 100 mg/dL LAB FT hrs Fasting Time 5 LAB VLDL <30 mg/dL High VLDL Cholesterol 33 LAB TCHDL <5.10 TC:HDL Ratio 3.61 LAB LDLHDL <2.54 LDL:HDL Ratio 1.80 Result Comment: Reference: 1. National Cholesterol Education Program ATP III Guideline At-A-Glance Quick Desk Reference: National Heart, Lung, and Blood [employer] [place]. National Institutes of Health. 2001: NIH Publication No. 01-3305. 2. An International Atherosclerosis Society position paper: global recommendations for the management of dyslipidemia: executive summary, Atherosclerosis. 2014: 232(2):410-413. Performed By: #### HBA1C, CMP, LIPB #### [facility] [address] [place], [place] [address] PROGRESS Observed: 04/19/2017 Status: COMPLETED Source: [place] 2:[address] [facility] REPOSITORY HNO ID: [id number] Author: Gerard (Freezer Worker) Anthony Service: (none) Author Type: Nurse Practitioner Type: Progress Notes Filed: 04/21/2017 7:51 AM Note Text: CC: Patient presents with: Recheck: Medication follow up HPI Alea Andrade is a 76 year old female who presents today for medication follow up, productive cough x6 months with worsening over the past 3 weeks, concerns for a rash and requesting a handicapped plaque Medications- Requesting new prescription for oxygen and supplies due to change in insurance. Patient has a history of lung cancer and left lobectomy. Patient reports productive cough ~6months, per the patient was previously treated as sinusitis. Reports worsening cough over the past 3 weeks that is relieved with tessalon Perles. Positive for self reported fever, temperature not measured and chills but she reports she is always cold, sore throat, sinus pressure and headaches. Denies any new or worsening SOB as long as she wears her oxygen or wheezing. Denies any ear pain, chest pain, palpitations, abdominal pain, nausea, vomiting or diarrhea. No treatments tried except tessalon and Claritin without symptom improvement. Denies need for Xopenex inhaler or nebulizer for symptoms described above. Rash of the left leg noted 2-3 days ago. Itching with some scattered red bumps and generalized scaling. Patient also reports +drainage to area of posterior calf. Denies any pain or drainage. No new detergents, lotions, shampoos, medications or food. Denies any recent injury or trauma to the are. Tried calamine lotion and kenalog cream with some improvement of pruritis. Self reported fever and chills. REVIEW OF SYSTEMS General: no night sweats, no recurrent infections, no change in appetite, no change in energy and no significant changes in weight Neck: no lumps, no pain and no swelling Respiratory: no wheezing, no shortness of breath, no hemoptysis Cardiovascular: no chest pain, no chest pressure and no palpitations GI: No nausea, vomiting, or diarrhea : No history of dysuria, frequency or incontinence Skin: Positive for rash and See HPI PAST MEDICAL HISTORY Diagnosis Date - Allergic rhinitis, cause unspecified 04/20/2005 - Asthma - Cellulitis and abscess of leg, except foot Recurrent episodes of cellulitis related to venous stasis - COPD (chronic obstructive pulmonary disease) (HCC) - Depressive disorder, not elsewhere classified 04/20/2005 - Diabetes mellitus without mention of complication Diabetes mellitus - Esophageal reflux 04/20/2005 - Fibromyalgia - Generalized osteoarthrosis, unspecified site 04/20/2005 - Oxygen dependent - Peptic ulcer, unspecified site, unspecified as acute or chronic, without mention of hemorrhage, perforation, or obstruction 1997 bleeding ulcers 1997 - PMH - PAST MEDICAL HISTORY OF narcolepsy and sleep apnea--recent sleep study 2009; CPAP at 13 (Dr. Mackenzie) - Pure hyperglyceridemia Slightly elevated TG; low HDL - Restless Legs Syndrome 04/20/2005 - Rheumatoid arthritis(714.0) 04/20/2005 - S/P lobectomy of lung 01/25/2011 - Type II or unspecified type diabetes mellitus without mention of complication, not stated as uncontrolled 04/20/2005 - Unspecified asthma(493.90) 04/20/2005 - Unspecified essential hypertension 04/20/2005 - Unspecified hypothyroidism 04/20/2005 - Venous stasis edema, legs PAST SURGICAL HISTORY Procedure Laterality Date - APPENDECTOMY 1960 - PAST SURGICAL HISTORY OF 1974 uterus and one ovary removed - REMOVAL ADENOIDS,PRIMARY,<12 Y/O Adenoidectomy - REMOVAL OF TONSILS,<12 Y/O Tonsillectomy - REPAIR UMBILICAL LEX,<5Y/O,REDUC 1992 Hernia repair, umbilical ALLERGIES Adhesive Tape-Silicones; Advair Diskus [Fluticasone-Salmeterol]; Asa [Salicylates]; Fentanyl; Roca Oxygen Products [Other]; Ivory Soap [Soap]; Latex; Paxil [Paroxetine Hcl]; Penicillins; Prilosec [Omeprazole]; Red Dye; Sulfa (Sulfonamide Antibiotics); Zithromycin [Other] MEDICATIONS benzonatate (TESSALON PERLE) 100 mg capsule Take 1 capsule by mouth three times daily as needed. oxyCODONE IR (ROXICODONE) 5 mg immediate release tablet Take 1-2 tablets by mouth three times daily as needed for Pain. May fill on or after start date loratadine-pseudoephedrine ER (LORATA-D) 10-240 mg Tb24 Take 1 tablet by mouth once daily as needed. zolpidem (AMBIEN) 10 mg tab TAKE 1 TABLET EVERY DAY AT BEDTIME NEEDED for insomnia. gabapentin (NEURONTIN) 600 mg tablet TAKE 1 AND 1/2 (ONE AND ONE-HALF) TABLETS BY MOUTH THREE TIMES DAILY mometasone-formoterol (DULERA) 200-5 mcg/actuation inhaler Inhale 2 Puffs as instructed twice daily. LORazepam (ATIVAN) 0.5 mg tab Take 1 tablet by mouth once daily as needed (anxiety). mupirocin (BACTROBAN) 2 % cream Apply to affected skin twice daily (May substitute with generic equivalent.; ointment can be given if cream note covered) triamcinolone acetonide (KENALOG) 0.1 % cream Apply 1 application to affected area three times daily. (80 gram tube) metFORMIN (GLUCOPHAGE) 500 mg tablet Take 1 tablet by mouth twice daily. potassium chloride (K-TAB) 10 mEq tablet Take 2 tablets by mouth three times daily. As directed Calcium Citrate-Vitamin D3 (CITRACAL+D) 315-250 mg-unit tab Take 1 tablet by mouth three times daily with meals. COMPOUNDED PRESCRIPTION Diabetic shoes Diagnoses: DM foot deformity and poor circulation. M21.969, R09.89. Dispense 1 pair of shoes levothyroxine (SYNTHROID) 137 mcg tablet Take 1 tablet by mouth daily before breakfast. sertraline (ZOLOFT) 100 mg tablet Take 1 tablet by mouth twice daily. traZODone (DESYREL) 150 mg tablet Take 1 tablet by mouth daily at bedtime. Miscellaneous Medical Supply [facility] Knee hi JONNY hose, Latex free (R60.9) Venous stasis edema, legs lisinopril 2.5 mg tablet Take 1 tablet by mouth once daily. Omeprazole (PRILOSEC) 40 mg capsule Take 1 capsule by mouth once daily. levalbuterol tartrate HFA (XOPENEX HFA) 45 mcg/actuation inhaler Inhale 1-2 Puffs as instructed every 4 hours as needed. levalbuterol (XOPENEX) 1.25 mg/3 mL nebulizer solution Use 1 Ampule via nebulizer every 4 hours as needed for Wheezing/Shortness of Breath. clindamycin (CLEOCIN) 1 % external solution Apply 1 application to affected area four times daily as needed. Dispense 1 bottle, not 1ml mometasone (ELOCON) 0.1 % cream Apply 1 application to affected area once daily. For scalp; Rinse the next morning after applying at bedtime. oxybutynin (DITROPAN) 5 mg tablet Take 1 tablet by mouth twice daily. COMPOUNDED PRESCRIPTION Please add humidifer to patient's oxygen. Dx; z99.81, z90.2, j44.9 fluticasone (FLONASE) 50 mcg/actuation nasal spray Use 2 Sprays in each nostril once daily. Rinse mouth after use. FA/MV,CA,IRON,MIN/LYCOPENE/LUT (MULTIVITAL ORAL) Take by mouth. VITAMIN B COMPLEX (SUPER B COMPLEX ORAL) Take by mouth once daily. mometasone-formoterol (DULERA) 200-5 mcg/actuation inhaler Inhale 2 Puffs as instructed twice daily. COMPOUNDED PRESCRIPTION Diabetic Shoes Diagnosis: DM type 2 250.00, Pes Planus 754.61, Neuropathic pain 729.2, Hammer toes 735.4 COMPOUNDED PRESCRIPTION Diabetic shoes Diagnosis: 250.00 furosemide (LASIX) 80 mg tablet Take 0.5-1 tablets by mouth once daily. as directed (last RX November 2013) guaiFENesin 600 mg 12 hr tablet Take 2 tablets by mouth twice daily as needed for Cold/Allergy Symptoms. blood sugar diagnostic (ONE TOUCH ULTRA TEST) test strip testing 2 times daily diag 250.00 COMPOUNDED PRESCRIPTION Ketoprofen 5%, Amitriptyline 2%, Gabapentin 2%, Lidocaine 5% EPINEPHrine (EPIPEN) 0.3 mg/0.3 mL (1:1,000) PnIj Inject intramuscularly. USE DIRECTED FOR ALLERGIC REACTION. SEEK EMERGENT MEDICAL CARE IMMEDIATELY AFTER USE. COMPOUNDED PRESCRIPTION NEBULIZER FOR HOME USE. DX: 493.90 asthma, h/o lung cancer, s/p lung lobectomyUse as directed COMPOUNDED PRESCRIPTION Firm Mattress for hospital bedDiagnoses: 782.3 Venous stasis edema, legs; V45.89 S/P lobectomy of lung, JOSE multivitamin tablet Take 1 tablet by mouth once daily. NIACIN ORAL Take 1 tablet by mouth once daily. COMPOUNDED PRESCRIPTION Hospital bed ( MEGAN, DJD back, fibromyalgia) 729.1, 715.00, 721.3, 327.3)Would like 2 half rails on bed. wt is 316# COMPOUNDED PRESCRIPTION For [facility]. Patient needs large oxygen tanks for within the home, and portable tanks for when she is out. Dx: s/p lobectomy of lung JOSE v45.89, lung cancer 162.3. COMPOUNDED PRESCRIPTION Order for [facility]: Discontinue liquid O2 COMPOUNDED PRESCRIPTION Add humidification to oxygen through the concentratorDiagnosis: COMPOUNDED PRESCRIPTION Heavy duty lift chair, ( pt wt is 321 # ) 6 feet tall. ( 714.0 rheumatoid arthritis, 729.1 Fibromyalgia, having lung surgery and will need to sit upright post operatively, currently short of breath, ) omega-3 fatty acids 1,000 mg ORAL Cap Take 1,000 mg by mouth twice daily. COMPOUNDED PRESCRIPTION Scooter Needs new one since other one needs replaced. Diagnoses: 714.0,721.3,278.01,715.00 blood-glucose meter(ONE TOUCH ULTRAMINI KIT) Use as directed. COMPOUNDED PRESCRIPTION C-Flex nasal CPCP mask with head gear and tubing supplies. FAMILY HISTORY Problem Relation Age of Onset - Alzheimer's Disease Mother - Diabetes Paternal Grandmother - Cervical Cancer Sister - Diabetes Sister Social History Substance Use Topics - Smoking status: Former Smoker Packs/day: 1.50 Years: 18.00 Types: Cigarettes Quit date: 03/21/1980 - Smokeless tobacco: Never Used - Alcohol use No PHYSICAL EXAM BP 134/82 Pulse 102 Resp 16 SpO2 90% General Appearance: in no acute distress, alert, disheveled Skin: negatives: Vascularity normal, No evidence of bleeding or bruising, No edema, Temperature normal, Mobility and turgor normal positives: Erythema: upper legs and lower legs located posterior calf and inner thigh. Large erythematous area without streaking or pustules, mildly warm to touch surrounding dry and scaly no hives no angioedema Head: normocephalic, atraumatic Eyes: PERRLA, conjunctiva pink and moist, no icterus, sclera white, non-injected Ears: external ears normal to inspection and palpation, canals clear, Left tympanic membrane normal. , Right tympanic membrane normal Nose/sinus: Nares normal. Septum midline. Mucosa normal. No drainage. Neck: Thyroid normal size and symmetric without palpable nodules, No adenopathy Lungs: Lungs clear to auscultation. No wheezing, rhonchi, rales Heart: RRR without murmur, gallop, or rubs. No ectopy DIABETIC FOOT EXAM due on 08/05/2014 DILATED RETINAL EXAM due on 08/14/2014 FECAL OCCULT BLOOD due on 12/28/2015 LDL due on 02/23/2017 HBA1C due on 06/05/2017 URINE ALBUMIN CREATININE RATIO due on 07/26/2017 TETANUS due on 12/14/2019 BONE DENSITY Completed ADULT PREVNAR-13 Completed INFLUENZA Completed PNEUMOVAX AGE 65 AND OVER WITH 5YR LOOKBACK Completed ASSESSMENT/PLAN: 1. Cellulitis of left lower extremity - ICD9: 682.6, ICD10: L03.116 (primary diagnosis) - Begin treatment with Clindamycin - No lymphangetic streaking, this was defined for patient to watch for and to seek medical care immediately if appears - Follow up for recheck in 1 week - CLINDAMYCIN HCL 300 MG CAPSULE 2. S/P lobectomy of lung, JOSE - ICD9: V45.89, ICD10: Z90.2 - Patient requiring home O2 at 3 liters - COMPOUNDED PRESCRIPTION - COMPOUNDED PRESCRIPTION 3. Primary osteoarthritis involving multiple joints - ICD9: 715.09, ICD10: M15.0 - Managed with [place] - HYDROCODONE 5 MG-ACETAMINOPHEN 325 MG TABLET - TOX SCREEN ROUT UR 4. Lumbosacral spondylosis without myelopathy - ICD9: 721.3, ICD10: M47.817 - Managed with [place] - HYDROCODONE 5 MG-ACETAMINOPHEN 325 MG TABLET - TOX SCREEN ROUT UR 5. Neuropathic pain - ICD9: 729.2, ICD10: M79.2 - GABAPENTIN 600 MG TABLET - TOX SCREEN ROUT UR 6. Controlled type 2 diabetes mellitus without complication, without long-term current use of insulin (HCC) - ICD9: 250.00, ICD10: E11.9 Controlled. - Continue current medications - Check HgA1C, fasting lipid panel and BMP - Ophthalmology referral for eval/management of diabetic eye changes - Follow up in 3 months, sooner should any other issues arise. - HGB A1C 7. Pure hyperglyceridemia - ICD9: 272.1, ICD10: E78.1 - to be determined upon return of lab results - Continue current medication. - Encouraged following a low fat, low cholesterol diet. - Check fasting lipid panel and ALT. - LIPID PANEL BASIC 8. Essential hypertension - ICD9: 401.9, ICD10: I10 - good control - Continue current medication(s) - Check BMP and fasting lipid panel - Goal of BP <140/90 - COMP METABOLIC PANEL - Follow up in 3 months 9. Fibromyalgia - ICD9: 729.1, ICD10: M79.7 - Managed - TOX SCREEN ROUT UR - GABAPENTIN 600 MG TABLET - HYDROCODONE 5 MG-ACETAMINOPHEN 325 MG TABLET - OARRS website checked and validated. All prescriptions have been APPROPRIATELY filled. No suspicious activity was identified.- 04/19/2017 by Gerard Gtz CNP Prescription instructions reviewed with patient as applicable. Potential red flag symptoms discussed with the patient. Reviewed appropriate action plan to take if red flag symptoms occur. Patient agreeable to treatment plan. CNOV Observed: 04/19/2017 Status: COMPLETED Source: [place] 2:00 PM [facility] REPOSITORY Office Visit ([facility]) ALEA ANDRADE ([id number]) 1940 F Date Time Provider Department 04/19/17 2:00 PM GERARD GTZ ([facility]EN[facility]) IN[facility] During your visit today, we recorded the following information about you: Pulse Respiration Blood pressure 102/minute 16/minute 134/82 Gerard Gtz CNP 04/21/2017 7:51 AM Addendum CC: Patient presents with: Recheck: Medication follow up HPI Alea Andrade is a 76 year old female who presents today for medication follow up, productive cough x6 months with worsening over the past 3 weeks, concerns for a rash and requesting a handicapped plaque Medications- Requesting new prescription for oxygen and supplies due to change in insurance. Patient has a history of lung cancer and left lobectomy. Patient reports productive cough ~6months, per the patient was previously treated as sinusitis. Reports worsening cough over the past 3 weeks that is relieved with tessalon Perles. Positive for self reported fever, temperature not measured and chills but she reports she is always cold, sore throat, sinus pressure and headaches. Denies any new or worsening SOB as long as she wears her oxygen or wheezing. Denies any ear pain, chest pain, palpitations, abdominal pain, nausea, vomiting or diarrhea. No treatments tried except tessalon and Claritin without symptom improvement. Denies need for Xopenex inhaler or nebulizer for symptoms described above. Rash of the left leg noted 2-3 days ago. Itching with some scattered red bumps and generalized scaling. Patient also reports +drainage to area of posterior calf. Denies any pain or drainage. No new detergents, lotions, shampoos, medications or food. Denies any recent injury or trauma to the are. Tried calamine lotion and kenalog cream with some improvement of pruritis. Self reported fever and chills. REVIEW OF SYSTEMS General: no night sweats, no recurrent infections, no change in appetite, no change in energy and no significant changes in weight Neck: no lumps, no pain and no swelling Respiratory: no wheezing, no shortness of breath, no hemoptysis Cardiovascular: no chest pain, no chest pressure and no palpitations GI: No nausea, vomiting, or diarrhea : No history of dysuria, frequency or incontinence Skin: Positive for rash and See HPI PAST MEDICAL HISTORY Diagnosis Date - Allergic rhinitis, cause unspecified 04/20/2005 - Asthma - Cellulitis and abscess of leg, except foot Recurrent episodes of cellulitis related to venous stasis - COPD (chronic obstructive pulmonary disease) (HCC) - Depressive disorder, not elsewhere classified 04/20/2005 - Diabetes mellitus without mention of complication Diabetes mellitus - Esophageal reflux 04/20/2005 - Fibromyalgia - Generalized osteoarthrosis, unspecified site 04/20/2005 - Oxygen dependent - Peptic ulcer, unspecified site, unspecified as acute or chronic, without mention of hemorrhage, perforation, or obstruction 1997 bleeding ulcers 1998 - PMH - PAST MEDICAL HISTORY OF narcolepsy and sleep apnea--recent sleep study 2010; CPAP at 13 (Dr. Mackenzie) - Pure hyperglyceridemia Slightly elevated TG; low HDL - Restless Legs Syndrome 04/20/2005 - Rheumatoid arthritis(714.0) 04/20/2005 - S/P lobectomy of lung 01/25/2011 - Type II or unspecified type diabetes mellitus without mention of complication, not stated as uncontrolled 04/20/2005 - Unspecified asthma(493.90) 04/20/2005 - Unspecified essential hypertension 04/20/2005 - Unspecified hypothyroidism 04/20/2005 - Venous stasis edema, legs PAST SURGICAL HISTORY Procedure Laterality Date - APPENDECTOMY 1960 - PAST SURGICAL HISTORY OF 1974 uterus and one ovary removed - REMOVAL ADENOIDS,PRIMARY,ANDlt;12 Y/O Adenoidectomy - REMOVAL OF TONSILS,ANDlt;11 Y/O Tonsillectomy - REPAIR UMBILICAL LEX,ANDlt;5Y/O,REDUC 1992 Hernia repair, umbilical ALLERGIES Adhesive Tape-Silicones; Advair Diskus [Fluticasone- Salmeterol]; Asa [Salicylates]; Fentanyl; Roca Oxygen Products [Other]; Ivory Soap [Soap]; Latex; Paxil [Paroxetine Hcl]; Penicillins; Prilosec [Omeprazole]; Red Dye; Sulfa (Sulfonamide Antibiotics); Zithromycin [Other] MEDICATIONS benzonatate (TESSALON PERLE) 100 mg capsule Take 1 capsule by mouth three times daily as needed. oxyCODONE IR (ROXICODONE) 5 mg immediate release tablet Take 1-2 tablets by mouth three times daily as needed for Pain. May fill on or after start date loratadine-pseudoephedrine ER (LORATA-D) 10-240 mg Tb24 Take 1 tablet by mouth once daily as needed. zolpidem (AMBIEN) 10 mg tab TAKE 1 TABLET EVERY DAY AT BEDTIME NEEDED for insomnia. gabapentin (NEURONTIN) 600 mg tablet TAKE 1 ANDamp; 1/2 (ONE AND ONE-HALF) TABLETS BY MOUTH THREE TIMES DAILY mometasone-formoterol (DULERA) 200-5 mcg/actuation inhaler Inhale 2 Puffs as instructed twice daily. LORazepam (ATIVAN) 0.5 mg tab Take 1 tablet by mouth once daily as needed (anxiety). mupirocin (BACTROBAN) 2 % cream Apply to affected skin twice daily (May substitute with generic equivalent.; ointment can be given if cream note covered) triamcinolone acetonide (KENALOG) 0.1 % cream Apply 1 application to affected area three times daily. (80 gram tube) metFORMIN (GLUCOPHAGE) 500 mg tablet Take 1 tablet by mouth twice daily. potassium chloride (K-TAB) 10 mEq tablet Take 2 tablets by mouth three times daily. As directed Calcium Citrate-Vitamin D3 (CITRACAL+D) 315-250 mg-unit tab Take 1 tablet by mouth three times daily with meals. COMPOUNDED PRESCRIPTION Diabetic shoes Diagnoses: DM foot deformity and poor circulation. M21.969, R09.89. Dispense 1 pair of shoes levothyroxine (SYNTHROID) 137 mcg tablet Take 1 tablet by mouth daily before breakfast. sertraline (ZOLOFT) 100 mg tablet Take 1 tablet by mouth twice daily. traZODone (DESYREL) 150 mg tablet Take 1 tablet by mouth daily at bedtime. Miscellaneous Medical Supply [facility] Knee hi JONNY hose, Latex free (R60.9) Venous stasis edema, legs lisinopril 2.5 mg tablet Take 1 tablet by mouth once daily. Omeprazole (PRILOSEC) 40 mg capsule Take 1 capsule by mouth once daily. levalbuterol tartrate HFA (XOPENEX HFA) 45 mcg/actuation inhaler Inhale 1-2 Puffs as instructed every 4 hours as needed. levalbuterol (XOPENEX) 1.25 mg/3 mL nebulizer solution Use 1 Ampule via nebulizer every 4 hours as needed for Wheezing/Shortness of Breath. clindamycin (CLEOCIN) 1 % external solution Apply 1 application to affected area four times daily as needed. Dispense 1 bottle, not 1ml mometasone (ELOCON) 0.1 % cream Apply 1 application to affected area once daily. For scalp; Rinse the next morning after applying at bedtime. oxybutynin (DITROPAN) 5 mg tablet Take 1 tablet by mouth twice daily. COMPOUNDED PRESCRIPTION Please add humidifer to patient's oxygen. Dx; z99.81, z90.2, j44.9 fluticasone (FLONASE) 50 mcg/actuation nasal spray Use 2 Sprays in each nostril once daily. Rinse mouth after use. FA/MV,CA,IRON,MIN/LYCOPENE/LUT (MULTIVITAL ORAL) Take by mouth. VITAMIN B COMPLEX (SUPER B COMPLEX ORAL) Take by mouth once daily. mometasone-formoterol (DULERA) 200-5 mcg/actuation inhaler Inhale 2 Puffs as instructed twice daily. COMPOUNDED PRESCRIPTION Diabetic Shoes Diagnosis: DM type 2 250.00, Pes Planus 754.61, Neuropathic pain 729.2, Hammer toes 735.4 COMPOUNDED PRESCRIPTION Diabetic shoes Diagnosis: 250.00 furosemide (LASIX) 80 mg tablet Take 0.5-1 tablets by mouth once daily. as directed (last RX November 2013) guaiFENesin 600 mg 12 hr tablet Take 2 tablets by mouth twice daily as needed for Cold/Allergy Symptoms. blood sugar diagnostic (ONE TOUCH ULTRA TEST) test strip testing 2 times daily diag 250.00 COMPOUNDED PRESCRIPTION Ketoprofen 5%, Amitriptyline 2%, Gabapentin 2%, Lidocaine 5% EPINEPHrine (EPIPEN) 0.3 mg/0.3 mL (1:1,000) PnIj Inject intramuscularly. USE DIRECTED FOR ALLERGIC REACTION. SEEK EMERGENT MEDICAL CARE IMMEDIATELY AFTER USE. COMPOUNDED PRESCRIPTION NEBULIZER FOR HOME USE. DX: 493.90 asthma, h/o lung cancer, s/p lung lobectomyUse as directed COMPOUNDED PRESCRIPTION Firm Mattress for hospital bedDiagnoses: 782.3 Venous stasis edema, legs; V45.89 S/P lobectomy of lung, JOSE multivitamin tablet Take 1 tablet by mouth once daily. NIACIN ORAL Take 1 tablet by mouth once daily. COMPOUNDED PRESCRIPTION Hospital bed ( MEGAN, DJD back, fibromyalgia) 729.1, 715.00, 721.3, 327.3)Would like 2 half rails on bed. wt is 316# COMPOUNDED PRESCRIPTION For [facility]. Patient needs large oxygen tanks for within the home, and portable tanks for when she is out. Dx: s/p lobectomy of lung JOSE v45.89, lung cancer 162.3. COMPOUNDED PRESCRIPTION Order for [facility]: Discontinue liquid O2 COMPOUNDED PRESCRIPTION Add humidification to oxygen through the concentratorDiagnosis: COMPOUNDED PRESCRIPTION Heavy duty lift chair, ( pt wt is 321 # ) 6 feet tall. ( 714.0 rheumatoid arthritis, 729.1 Fibromyalgia, having lung surgery and will need to sit upright post operatively, currently short of breath, ) omega-3 fatty acids 1,000 mg ORAL Cap Take 1,000 mg by mouth twice daily. COMPOUNDED PRESCRIPTION Scooter Needs new one since other one needs replaced. Diagnoses: 714.0,721.3,278.01,715.00 blood-glucose meter(ONE TOUCH ULTRAMINI KIT) Use as directed. COMPOUNDED PRESCRIPTION C-Flex nasal CPCP mask with head gear and tubing supplies. FAMILY HISTORY Problem Relation Age of Onset - Alzheimer's Disease Mother - Diabetes Paternal Grandmother - Cervical Cancer Sister - Diabetes Sister Social History Substance Use Topics - Smoking status: Former Smoker Packs/day: 1.50 Years: 18.00 Types: Cigarettes Quit date: 03/21/1980 - Smokeless tobacco: Never Used - Alcohol use No PHYSICAL EXAM BP 134/82 Pulse 102 Resp 16 SpO2 90% General Appearance: in no acute distress, alert, disheveled Skin: negatives: Vascularity normal, No evidence of bleeding or bruising, No edema, Temperature normal, Mobility and turgor normal positives: Erythema: upper legs and lower legs located posterior calf and inner thigh. Large erythematous area without streaking or pustules, mildly warm to touch surrounding dry and scaly no hives no angioedema Head: normocephalic, atraumatic Eyes: PERRLA, conjunctiva pink and moist, no icterus, sclera white, non-injected Ears: external ears normal to inspection and palpation, canals clear, Left tympanic membrane normal. , Right tympanic membrane normal Nose/sinus: Nares normal. Septum midline. Mucosa normal. No drainage. Neck: Thyroid normal size and symmetric without palpable nodules, No adenopathy Lungs: Lungs clear to auscultation. No wheezing, rhonchi, rales Heart: RRR without murmur, gallop, or rubs. No ectopy DIABETIC FOOT EXAM due on 08/05/2014 DILATED RETINAL EXAM due on 08/14/2014 FECAL OCCULT BLOOD due on 12/28/2015 LDL due on 02/23/2017 HBA1C due on 06/05/2017 URINE ALBUMIN CREATININE RATIO due on 07/26/2017 TETANUS due on 12/14/2019 BONE DENSITY Completed ADULT PREVNAR-13 Completed INFLUENZA Completed PNEUMOVAX AGE 65 AND OVER WITH 5YR LOOKBACK Completed ASSESSMENT/PLAN: 1. Cellulitis of left lower extremity - ICD9: 682.6, ICD10: L03.116 (primary diagnosis) - Begin treatment with Clindamycin - No lymphangetic streaking, this was defined for patient to watch for and to seek medical care immediately if appears - Follow up for recheck in 1 week - CLINDAMYCIN HCL 300 MG CAPSULE 2. S/P lobectomy of lung, JOSE - ICD9: V45.89, ICD10: Z90.2 - Patient requiring home O2 at 3 liters - COMPOUNDED PRESCRIPTION - COMPOUNDED PRESCRIPTION 3. Primary osteoarthritis involving multiple joints - ICD9: 715.09, ICD10: M15.0 - Managed with [place] - HYDROCODONE 5 MG-ACETAMINOPHEN 325 MG TABLET - TOX SCREEN ROUT UR 4. Lumbosacral spondylosis without myelopathy - ICD9: 721.3, ICD10: M47.817 - Managed with [place] - HYDROCODONE 5 MG-ACETAMINOPHEN 325 MG TABLET - TOX SCREEN ROUT UR 5. Neuropathic pain - ICD9: 729.2, ICD10: M79.2 - GABAPENTIN 600 MG TABLET - TOX SCREEN ROUT UR 6. Controlled type 2 diabetes mellitus without complication, without long-term current use of insulin (HCC) - ICD9: 250.00, ICD10: E11.9 Controlled. - Continue current medications - Check HgA1C, fasting lipid panel and BMP - Ophthalmology referral for eval/management of diabetic eye changes - Follow up in 3 months, sooner should any other issues arise. - HGB A1C 7. Pure hyperglyceridemia - ICD9: 272.1, ICD10: E78.1 - to be determined upon return of lab results - Continue current medication. - Encouraged following a low fat, low cholesterol diet. - Check fasting lipid panel and ALT. - LIPID PANEL BASIC 8. Essential hypertension - ICD9: 401.9, ICD10: I10 - good control - Continue current medication(s) - Check BMP and fasting lipid panel - Goal of BP ANDlt;140/90 - COMP METABOLIC PANEL - Follow up in 3 months 9. Fibromyalgia - ICD9: 729.1, ICD10: M79.7 - Managed - TOX SCREEN ROUT UR - GABAPENTIN 600 MG TABLET - HYDROCODONE 5 MG-ACETAMINOPHEN 325 MG TABLET - OARRS website checked and validated. All prescriptions have been APPROPRIATELY filled. No suspicious activity was identified.- 04/19/2017 by Gerard Gtz CNP Prescription instructions reviewed with patient as applicable. Potential red flag symptoms discussed with the patient. Reviewed appropriate action plan to take if red flag symptoms occur. Patient agreeable to treatment plan. Referring Provider: SELF [[id number]] Allergies As of Date: 04/19/2017 Noted Allergy Reaction ADHESIVE TAPE-SILICONES 05/26/2005 ADVAIR DISKUS (FLUTICASONE-SALMET*05/21/2014 14 - Other: See Comments Comments: vision difficulties; aggravated ocular migraines ASA (SALICYLATES) 04/16/2005 14 - Other: See Comments Comments: sensitive- she bleeds easily FENTANYL 03/18/2011 2 - Rash 9 - Itching Comments: Headaches, increased pain [employer] [Other] 02/25/2011 7 - Swelling Comments: Headaches IVORY SOAP (SOAP) 05/08/2013 14 - Other: See Comments Comments: Eyelid irritation and conjunctivitis (drainage and runny eyes) LATEX 11/08/2006 Comments: Sensitive PAXIL (PAROXETINE HCL) 04/19/2005 1 - Mental Status Change Comments: suicidal PENICILLINS 04/16/2005 2 - Rash Comments: generalized swelling PRILOSEC (OMEPRAZOLE) 08/23/2008 5 - Intolerance 8 - GI Upset Comments: Headache - pt. States okay since not red dye anymore RED DYE 08/19/2008 Comments: Gi upset, makes throat raw.( did not have allergy testing tho) SULFA (SULFONAMIDE ANTIBIOTICS) 01/15/2009 7 - Swelling Comments: Took bactrim without problem zithromycin [Other] 04/19/2005 Comments: swelling, rash Date Reviewed: 04/19/2017 Reviewed by: Yaneli Mock Ma - Fully Assessed Reason for Visit: Recheck [92] Cmt: Medication follow up Primary Visit Diagnosis:Cellulitis of left lower extremity [L03.116] Other Visit Diagnoses:S/P lobectomy of lung, JOSE [Z90.2] Primary osteoarthritis involving multiple joints [M15.0] Lumbosacral spondylosis without myelopathy [M47.817] Neuropathic pain [M79.2] Controlled type 2 diabetes mellitus without complication, without long-term current use of insulin (HCC) [E11.9] Pure hyperglyceridemia [E78.1] Essential hypertension [I10] Fibromyalgia [M79.7] Order(s):gabapentin (NEURONTIN) 600 mg tabletTAKE 1 AND 1/2 (ONE AND ONE-HALF) TABLETS BY MOUTH THREE TIMES DAILYDisp: 135 tabletRfl: 3 COMPOUNDED PRESCRIPTIONFor [facility]. Patient needs large oxygen tanks for within the home, and portable tanks for when she is out. Pulse ox 90% on 3L in office. Dx: s/p lobectomy of lung JOSE v45.89, lung cancer 162.3.Disp: 1 EachRfl: 11 COMPOUNDED PRESCRIPTIONFor [facility]. Please dispense all attachment supplies for oxygen.Disp: 1 EachRfl: 11 TOX SCREEN ROUT UR [SQUTOX2] Order #: [id number] FUTURE COMP METABOLIC PANEL [SQCMP] Order #: [id number] FUTURE HGB A1C [DHSWT5L] Order #: [id number] FUTURE LIPID PANEL BASIC [SQLIPB] Order #: [id number] FUTURE clindamycin (CLEOCIN) 300 mg capsuleTake 1 capsule by mouth four times daily for 10 days.Disp: 40 capsuleRfl: 0 [START ON 04/26/2017] HYDROcodone-acetaminophen (NORCO) 5-325 mg per tabletTake 1 tablet by mouth every 6 hours as needed for up to 30 days. For moderate pain (not severe to need oxycodone). Earliest Fill Date: 04/26/17Disp: 30 tabletRfl: 0 Prescriptions as of 04/19/2017 Sig: GABAPENTIN 600 MG TABLET TAKE 1 AND 1/2 (ONE AND ONE-GAURANG* COMPOUNDED PRESCRIPTION For [facility]. Nubia* COMPOUNDED PRESCRIPTION For [facility]. Plea* CLINDAMYCIN HCL 300 MG CAPSULE Take 1 capsule by mouth four * HYDROCODONE 5 MG-ACETAMINOPHE* Take 1 tablet by mouth every * BENZONATATE 100 MG CAPSULE Take 1 capsule by mouth three* X OXYCODONE 5 MG TABLET Take 1-2 tablets by mouth thr* LORATADINE-PSEUDOEPHEDRINE ER* Take 1 tablet by mouth once d* ZOLPIDEM 10 MG TABLET TAKE 1 TABLET EVERY DAY AT BE* MOMETASONE-FORMOTEROL HFA 200* Inhale 2 Puffs as instructed * LORAZEPAM 0.5 MG TABLET Take 1 tablet by mouth once d* MUPIROCIN 2 % TOPICAL CREAM Apply to affected skin twice * TRIAMCINOLONE ACETONIDE 0.1 %* Apply 1 application to affect* METFORMIN 500 MG TABLET Take 1 tablet by mouth twice * POTASSIUM CHLORIDE ER 10 MEQ * Take 2 tablets by mouth three* CALCIUM CITRATE-VITAMIN D3 31* Take 1 tablet by mouth three * COMPOUNDED PRESCRIPTION Diabetic shoes Diagnoses: D* LEVOTHYROXINE 137 MCG TABLET Take 1 tablet by mouth daily * SERTRALINE 100 MG TABLET Take 1 tablet by mouth twice * TRAZODONE 150 MG TABLET Take 1 tablet by mouth daily * MISCELLANEOUS MEDICAL SUPPLY * Knee hi JONNY hose, Latex free * LISINOPRIL 2.5 MG TABLET Take 1 tablet by mouth once d* OMEPRAZOLE 40 MG CAPSULE,DUNIA* Take 1 capsule by mouth once * LEVALBUTEROL HFA 45 MCG/ACTUA* Inhale 1-2 Puffs as instructe* LEVALBUTEROL 1.25 MG/3 ML GILLIAN* Use 1 Ampule via nebulizer ev* CLINDAMYCIN PHOSPHATE 1 % TOP* Apply 1 application to affect* MOMETASONE 0.1 % TOPICAL CREAM Apply 1 application to affect* OXYBUTYNIN CHLORIDE 5 MG TABL* Take 1 tablet by mouth twice * COMPOUNDED PRESCRIPTION Please add humidifer to patie* FLUTICASONE 50 MCG/ACTUATION * Use 2 Sprays in each nostril * MULTIVITAL ORAL Take by mouth. SUPER B COMPLEX ORAL Take by mouth once daily. MOMETASONE-FORMOTEROL HFA 200* Inhale 2 Puffs as instructed * COMPOUNDED PRESCRIPTION Diabetic Shoes Diagnosis: * COMPOUNDED PRESCRIPTION Diabetic shoes Diagnosis: 25* FUROSEMIDE 80 MG TABLET Take 0.5-1 tablets by mouth o* GUAIFENESIN ER 600 MG TABLET,* Take 2 tablets by mouth twice* BLOOD SUGAR DIAGNOSTIC STRIPS testing 2 times daily diag 2* COMPOUNDED PRESCRIPTION Ketoprofen 5%, Amitriptyline * EPINEPHRINE 0.3 MG/0.3 ML INJ* Inject intramuscularly. USE * COMPOUNDED PRESCRIPTION NEBULIZER FOR HOME USE. DX: * COMPOUNDED PRESCRIPTION Firm Mattress for hospital be* * MULTIVITAMIN TABLET Take 1 tablet by mouth once d* * NIACIN ORAL Take 1 tablet by mouth once d* COMPOUNDED PRESCRIPTION Hospital bed ( MEGAN, DJD b* COMPOUNDED PRESCRIPTION For [facility]. Nubia* COMPOUNDED PRESCRIPTION Order for [facility]: Disco* COMPOUNDED PRESCRIPTION Add humidification to oxygen * COMPOUNDED PRESCRIPTION Heavy duty lift chair, ( pt w* * OMEGA-3 FATTY ACIDS 1,000 MG * Take 1,000 mg by mouth twice * COMPOUNDED PRESCRIPTION Scooter Needs new one since* BuckI KIT Use as directed. COMPOUNDED PRESCRIPTION C-Flex nasal CPCP mask with h* Problem List As Of Date 04/19/2017 Noted Resolved Diabetes mellitus type 2, controlled, without c*INVALID FOR* Priority: C More... Depressive disorder, not elsewhere classified [*INVALID FOR* Priority: E More... MEGAN (obstructive sleep apnea) [G47.33] INVALID FOR* Priority: B More... Essential hypertension [I10] INVALID FOR* Priority: D More... Hypothyroidism [E03.9] INVALID FOR* Priority: E More... Esophageal reflux [K21.9] INVALID FOR* More... Restless Legs Syndrome [G25.89] INVALID FOR* More... Allergic rhinitis, cause unspecified [J30.9] INVALID FOR* More... Primary osteoarthritis involving multiple joint*INVALID FOR* Priority: D More... Rheumatoid arthritis [M06.9] INVALID FOR*12/26/2010 Priority: D PMH - PAST MEDICAL HISTORY OF 08/09/2013 More... LUMBOSACRAL SPONDYLOSIS [M47.817] INVALID FOR* Morbid obesity [E66.01] INVALID FOR* Priority: D More... Sprain of lumbar region [S33.5XXA] INVALID FOR*08/09/2013 Pure hyperglyceridemia [E78.1] Priority: D More... Insomnia, unspecified [G47.00] INVALID FOR*08/09/2013 Venous stasis edema, legs [R60.9] Priority: D More... Cellulitis and abscess of leg, except foot [L03* 08/09/2013 More... CLUSTER HEADACHE SYN NOS [G44.009] INVALID FOR* More... CONGENITAL PES PLANUS [Q66.50] INVALID FOR* Fibromyalgia [M79.7] More... Acute postoperative pain [G89.18] INVALID FOR*08/09/2013 Priority: D More... Left video-assisted thoracoscopic surgery upper*INVALID FOR* Priority: A More... D/C planning [Z71.89] INVALID FOR*08/09/2013 Priority: M More... DVT prophylaxis [WGG4639] INVALID FOR*08/09/2013 Priority: C More... R/o pressure ulcer on nose [L89.899] INVALID FOR*08/09/2013 Priority: I More... 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 S/P lobectomy of lung, JOSE [Z90.2] INVALID FOR* Drug induced neutropenia [D70.2] INVALID FOR*05/20/2011 History of lung cancer [Z85.118] INVALID FOR* More... Neuropathic pain [M79.2] INVALID FOR* More... Pain in joint, lower leg [M25.569] INVALID FOR* Anxiety [F41.9] INVALID FOR* More... Insomnia [G47.00] INVALID FOR* More... Hypokalemia [E87.6] INVALID FOR*11/14/2013 Lung cancer (HCC) [C34.90] INVALID FOR* Acquired bilateral hammer toes [M20.41, M20.42] INVALID FOR* Neuralgia, neuritis, and radiculitis, unspecifi*INVALID FOR* Weakness [R53.1] INVALID FOR* Difficulty walking [R26.2] INVALID FOR* Prescriptions ordered this encounter Disp Refills Start End GABAPENTIN 600 MG TABLET 135 * 3 04/19/2017 07/18/2017 Sig: TAKE 1 AND 1/2 (ONE AND ONE-HALF) TABLETS BY MOUTH THREE TIMES DAILY COMPOUNDED PRESCRIPTION 1 Ea* 04/19/2017 Class: Print RX Sig: For [facility]. Patient needs large oxygen tanks for within the home, and portable tanks for when she is out. Pulse ox 90% on 3L in office. Dx: s/p lobectomy of lung JOSE v45.89, lung cancer 162.3. COMPOUNDED PRESCRIPTION 1 Ea* 04/19/2017 Class: Print RX Sig: For [facility]. Please dispense all attachment supplies for oxygen. CLINDAMYCIN HCL 300 MG CAPSULE 40 c* 0 04/19/2017 04/29/2017 Route: ORAL Sig: Take 1 capsule by mouth four times daily for 10 days. HYDROCODONE 5 MG-ACETAMINOPHEN 325 M* 30 t* 0 04/26/2017 05/26/2017 Class: Print RX Route: ORAL Sig: Take 1 tablet by mouth every 6 hours as needed for up to 30 days. For moderate pain (not severe to need oxycodone). Earliest Fill Date: 04/26/17 Medications Discontinued During This Encounter HYDROcodone-acetaminophen (NORCO) 5-* 60 t* 0 02/23/2017 04/19/2017 Class: Print RX Route: ORAL Sig: Take 1 tablet by mouth every 6 hours as needed for up to 30 days. For moderate pain (not severe to need oxycodone). May fill on or after 02/23/17 Disc: Reason for discontinue is not on file. HYDROcodone-acetaminophen (NORCO) 5-* 60 t* 0 10/31/2016 04/19/2017 Class: Print RX Route: ORAL Sig: Take 1 tablet by mouth every 6 hours as needed for up to 30 days. For moderate pain (not severe to need oxycodone). May fill on or after 10/31/2016 Disc: Reason for discontinue is not on file. HYDROcodone-acetaminophen (NORCO) 5-* 60 t* 0 10/01/2016 04/19/2017 Class: Print RX Route: ORAL Sig: Take 1 tablet by mouth every 6 hours as needed for up to 30 days. For moderate pain (not severe to need oxycodone). May fill on or after 10/01/2016 Disc: Reason for discontinue is not on file. gabapentin (NEURONTIN) 600 mg tablet 405 * 0 02/03/2017 04/19/2017 Sig: TAKE 1 AND 1/2 (ONE AND ONE-HALF) TABLETS BY MOUTH THREE TIMES DAILY Disc: Reason for discontinue is not on file. Letter Text Department of Internal Medicine [address], [place] [address] 04/19/2017 THIS IS A PRESCRIPTION FOR HANDICAPPED PARKING PERMIT Re: Alea Andrade [address] [place] [address] The above named person requires a disability parking placard. DURATION: LIFETIME EXPIRATION: RENEW EVERY 5 YEARS Sincerely, Gerard Gtz CNP Encounter Status:Closed by GERARD GTZ CNP on 04/19/17 ALLERGIES ALLERGIES DATE TYPE / CODE NAME / CODE REACTION SEVERITY SOURCE Drug Penicillins/F001 Unknown Unknown [place] 6 Allergy/909039033( 225264(RXNORM) [facility] Hospital Repository Drug Sulfa Unknown Unknown [place] Allergy/679819390( (Sulfonamide [facility] SNOM[facility]) Antibiotics)/F00 Hospital 9340289(RXNORM) Repository Drug fentanyl/[id number] Unknown Unknown [place] 6 Allergy/100845320( 571(RXNORM) [facility]) Hospital Repository Drug azithromycin/F00 Unknown Unknown [place] 6 Allergy/857949086( 9530688(RXNORM) [facility]) Hospital Repository Drug latex/[id number] Unknown Unknown [place] 6 Allergy/871542863( (RXNORM) [facility]) Hospital Repository DRUG/091625337(SNO FLUTICASONE-SALM OTHER: SEE Macey Laura [address]) ETEROL [facility] [place] Repository DRUG SOAP OTHER: SEE Macey Laura 4 INGREDI/990597288( Clinic Main SNOMED [facility]) [place] Repository DRUG FENTANYL RASH [place] 1 INGREDI/000712035( Clinic Main SNOMED [facility]) [place] Repository Miscellaneous OTHER SWELLING [place] 1 Allergy/590766814( Clinic Main SNOMED [facility]) [place] Repository Drug SULFA SWELLING [place] 9 Class/409112140(SN (SULFONAMIDE Clinic Main OMED CT) ANTIBIOTICS) [place] Repository DRUG OMEPRAZOLE INTOLERANCE [place] 9 INGREDI/340252502( Clinic Main SNOMED [facility]) [place] Repository DRUG RED DYE [place] 9 INGREDI/489090226( Clinic Main SNOM[facility]) [place] Repository DRUG LATEX [place] 7 INGREDI/228331607( Clinic Main SNOMED [facility]) [place] Repository DRUG/818076676(SNO ADHESIVE [place] [address]) TAPE-SILICONES [facility] [place] Repository DRUG PAROXETINE HCL Mental Chg [place] 6 INGREDI/929102540( Clinic Main SNOMED CT) [place] Repository Miscellaneous OTHER [place] [address] Allergy/745903732( Clinic Main SNOMED CT) [place] Repository Drug SALICYLATES OTHER: SEE C [place] [address] Class/886110874([facility] Main OMED CT) [place] Repository Drug PENICILLINS RASH [place] 6 Class/750874090([facility] Main OMED [facility]) [place] Repository ENCOUNTERS ENCOUNTERS ADMIT/DISCHARGE ACCOUNT ADMITTING ENCOUNTER LOCATION SOURCE NUMBER CLASS 04/07/2018 [id number] [facility] ing:LAB Repository 12/26/2017/12/28/19 [id number] Ambulatory [address] [place] Repository 11/03/2017/11/04/19 [id number] Ambulatory [address] [place] Repository 10/25/2017/10/26/19 [id number] Ambulatory [address] [place] Repository 10/25/2017/10/28/19 [id number] Ambulatory [address] [place] Repository 10/05/2017/10/06/19 [id number] Ambulatory [address] [place] Repository 04/19/2017/04/19/19 [id number] Ambulatory [address] [place] Repository 04/19/2017/04/19/19 [id number] Ambulatory [address] Repository PAYERS PAYERS ENCOUNTER GUARANTOR PAYER SUBSCRIBER SOURCE 04/07/2018 Alea Parker Primary Alea Remy [id number] [place] Insurance:[facility] KwanB: [facility] [place] MEDICAREPolicy [id number] [address]Mtb: Number: Repository [id number] (HP) Date:[id number] [address] in [address]SL: 04/07/2018 [facility]:SELF [facility] Number: Effective Repository Date:2018-04-07
== END ==
PROVIDERS: Family Provider Internal Medicine; PCP Internal Medicine; Visit Provider Internal Medicine
DX: E11.9 Type 2 diabetes mellitus without complications (principal); E78.1 Pure hyperglyceridemia; E03.9 Hypothyroidism, unspecified
CPT/HCPCS: 36415; 80053; 80061; 83036; 83735; 84439; 84443; 85027

== ENCOUNTER → 2018-09-07 | Outpatient (CLI) | payer MEDICARE, SELFPAY ==
[2015-10-01 14:08] VITALS: BMI 43.1
[2018-09-07 10:32] LABS: Hematocrit 36.9 % (37-47); Hemoglobin 11.4 g/dl (12.0-15.0); Mean Corp Hgb Conc 30.9 g/gl (32-36); Mean Corpuscular Hgb 29.2 pg (27.0-32.0); Mean Corpuscular Volume 94.4 fL (81-99); Mean Platelet Vol. 9.2 fl (6.2-12.0); Platelet Count 209 K/mm3 (150-450); Red Blood Count 3.91 M/mm3 (4.2-5.4); White Blood Count 5.1 K/mm3 (4.4-11.0)
[2018-09-07 10:37] LABS: Scan Indicated on CBC? Y/N NO
[2018-09-07 10:53] LABS: Hemoglobin A1c 5.4 % (4.2-6.3)
[2018-09-07 10:59] LABS: ALB/GLOB Ratio 0.5 RATIO (0.9-2.4); AST(SGOT) 48 U/L (15-37); Alanine Aminotransfer ALT/SGPT 25 U/L (13-56); Albumin, Serum 2.8 g/dL (3.2-5.0); Alkaline Phosphatase 65 U/L (45-117); Anion Gap 1 (5-15); BUN 11 mg/dL (7-18); BUN/Creat Ratio 18.4 RATIO (10-20); Calcium,Total 9.2 mg/dL (8.5-10.1); Chloride 97 mmol/L (98-107); Cholesterol 131 mg/dL (200); EST Glomerular Filtration Rate 103 mL/min (>60); Est Glom Filt Rate - Afr Amer 125 mL/min (>60); Globulin 5.7 g/dL (2.2-4.2); Glucose 95 mg/dL (74-106); High Density Lipoprotein 37 mg/dL; Potassium 4.2 mmol/L (3.5-5.1); Protein, Total 8.5 g/dL (6.4-8.2); Sodium Level 138 mmol/L (136-145); Thyroid Stim Hormone (TSH) 2.01 uIU/mL (0.358-3.74); Triglycerides 123 mg/dL; Very Low Density Lipoprotein 25 mg/dL (5-40)
== END | disposition home or self-care (01) ==
PROVIDERS: Family Provider Internal Medicine; PCP Internal Medicine; Visit Provider Internal Medicine
DX: E11.9 Type 2 diabetes mellitus without complications (principal); E03.9 Hypothyroidism, unspecified; E78.1 Pure hyperglyceridemia; I10 Essential (primary) hypertension
CPT/HCPCS: 36415; 80053; 80061; 83036; 84443; 85027

== ENCOUNTER → 2018-09-08 12:11 | Outpatient (CLI) | payer MEDICARE, SELFPAY ==
[2018-09-08 12:52] LABS: Microalbumin,Random Urine 14.3 mg/L (NO RANGE EST.); Microalbumin:Creatinine Ratio 17.9 mg/g CRE (<30 mg/g CRE)
== END ==
PROVIDERS: Family Provider Internal Medicine; PCP Internal Medicine; Referring Provider Internal Medicine; Visit Provider Internal Medicine
DX: E11.9 Type 2 diabetes mellitus without complications (principal)
CPT/HCPCS: 82043; 82570

== ENCOUNTER → 2019-09-24 08:39 | Outpatient (CLI) | payer MEDICARE, SELFPAY ==
[2019-09-24 11:04] LABS: Hematocrit 30.4 % (37-47); Hemoglobin 8.8 g/dL (12.0-15.0); Mean Corp Hgb Conc 28.9 g/dL (32-36); Mean Corpuscular Hgb 27.3 pg (27.0-32.0); Mean Corpuscular Volume 94.4 fL (81-99); Mean Platelet Vol. 9.4 fl (6.2-12.0); Platelet Count 170 K/mm3 (150-450); RBC Distribution Width CV 16.6 % (11.6-14.6); RBC Distribution Width SD 57.5 fl (35.1-43.9); Red Blood Count 3.22 M/mm3 (4.2-5.4); White Blood Count 6.3 K/mm3 (4.4-11.0)
[2019-09-24 11:25] LABS: ALB/GLOB Ratio 0.5 RATIO (0.9-2.4); AST(SGOT) 24 U/L (15-37); Alanine Aminotransfer ALT/SGPT 14 U/L (13-56); Albumin, Serum 2.4 g/dL (3.2-5.0); Alkaline Phosphatase 75 U/L (45-117); Anion Gap 4 (5-15); BUN 7 mg/dL (7-18); BUN/Creat Ratio 12.8 RATIO (10-20); Calcium,Total 8.6 mg/dL (8.5-10.1); Chloride 102 mmol/L (98-107); Cholesterol 141 mg/dL (200); Creatinine, Serum 0.55 mg/dL (0.55-1.02); EST Glomerular Filtration Rate 114 mL/min (>60); Est Glom Filt Rate - Afr Amer 138 mL/min (>60); Globulin 5.2 g/dL (2.2-4.2); Glucose 93 mg/dL (74-106); High Density Lipoprotein 36 mg/dL; Potassium 4.1 mmol/L (3.5-5.1); Protein, Total 7.6 g/dL (6.4-8.2); Sodium Level 143 mmol/L (136-145); Triglycerides 167 mg/dL; Very Low Density Lipoprotein 33 mg/dL (5-40)
[2019-09-24 11:32] LABS: Hemoglobin A1c 5.4 % (3.8-5.6)
== END ==
LOC: LABSPEC 08:42
PROVIDERS: PCP Internal Medicine; Visit Provider Internal Medicine
DX: E11.9 Type 2 diabetes mellitus without complications (principal); E03.9 Hypothyroidism, unspecified
CPT/HCPCS: 36415; 80053; 80061; 83036; 84443; 85027

== ENCOUNTER → 2019-09-25 15:20 | Outpatient (CLI) | payer MEDICARE, SELFPAY ==
[2019-09-25 16:08] LABS: Microalbumin,Random Urine 10.8 mg/L (NO RANGE EST.); Microalbumin:Creatinine Ratio 11.5 mg/g CRE (<30 mg/g CRE)
== END ==
PROVIDERS: PCP Internal Medicine; Referring Provider Internal Medicine; Visit Provider Internal Medicine
DX: E11.9 Type 2 diabetes mellitus without complications (principal)
CPT/HCPCS: 82043; 82570

== ENCOUNTER → 2019-12-05 06:47 | Outpatient (CLI) | payer MEDICARE, SELFPAY ==
[2015-10-01 14:08] VITALS: BMI 43.1
[2019-12-05 10:44] LABS: Hematocrit 31.9 % (37-47); Hemoglobin 9.3 g/dL (12.0-15.0); Mean Corp Hgb Conc 29.2 g/dL (32-36); Mean Corpuscular Hgb 28.5 pg (27.0-32.0); Mean Corpuscular Volume 97.9 fL (81-99); Platelet Count 209 K/mm3 (150-450); RBC Distribution Width SD 58.3 fl (35.1-43.9); Red Blood Count 3.26 M/mm3 (4.2-5.4); White Blood Count 6.5 K/mm3 (4.4-11.0)
[2019-12-05 10:59] LABS: Vitamin B12 287 pg/mL (211-911)
[2019-12-05 11:09] LABS: Hemoglobin A1c 5.2 % (3.8-5.6)
[2019-12-05 11:11] LABS: ALB/GLOB Ratio 0.4 RATIO (0.9-2.4); AST(SGOT) 24 U/L (15-37); Alanine Aminotransfer ALT/SGPT 13 U/L (13-56); Albumin, Serum 2.4 g/dL (3.2-5.0); Alkaline Phosphatase 85 U/L (45-117); Anion Gap 1 (5-15); BUN 8 mg/dL (7-18); BUN/Creat Ratio 15.4 RATIO (10-20); Calcium,Total 8.9 mg/dL (8.5-10.1); Chloride 101 mmol/L (98-107); Cholesterol 134 mg/dL (200); Creatinine, Serum 0.52 mg/dL (0.55-1.02); EST Glomerular Filtration Rate 121 mL/min (>60); Est Glom Filt Rate - Afr Amer 146 mL/min (>60); Ferritin 14 ng/mL (8-252); Globulin 5.7 g/dL (2.2-4.2); Glucose 93 mg/dL (74-106); High Density Lipoprotein 34 mg/dL; Iron 25 ug/dL (50-170); Iron Binding Capacity,Total 240 ug/dL (250-450); Potassium 4.1 mmol/L (3.5-5.1); Protein, Total 8.1 g/dL (6.4-8.2); Sodium Level 142 mmol/L (136-145); Thyroid Stim Hormone (TSH) 3.45 uIU/mL (0.358-3.74); Triglycerides 158 mg/dL; Very Low Density Lipoprotein 32 mg/dL (5-40)
[2019-12-05 11:20] LABS: Microalbumin,Random Urine 12.2 mg/L (NO RANGE EST.); Microalbumin:Creatinine Ratio 16.1 mg/g CRE (<30 mg/g CRE)
[2019-12-05 11:24] LABS: Amphetamine Urine VISTA NEGATIVE (<1000 ng/mL); Barbiturate Urine VISTA NEGATIVE (< 200 ng/mL); Benzodiazepine Urine VISTA NEGATIVE (< 200 ng/mL); Cocaine Urine VISTA NEGATIVE (< 300 ng/mL); Ecstacy Urine VISTA POSITIVE (< 500 ng/mL); Methadone Urine VISTA NEGATIVE (< 300 ng/mL); PCP Urine VISTA NEGATIVE (< 25 ng/mL); THC Urine VISTA NEGATIVE (< 50 ng/mL); Vista UDS pH Range 6
== END ==
LOC: LABSPEC 06:49
PROVIDERS: PCP Internal Medicine; Visit Provider Internal Medicine
DX: E11.9 Type 2 diabetes mellitus without complications (principal); D64.9 Anemia, unspecified; I10 Essential (primary) hypertension; E03.9 Hypothyroidism, unspecified; E78.1 Pure hyperglyceridemia; Z79.899 Other long term (current) drug therapy
CPT/HCPCS: 36415; 80053; 80061; 80307; 82043; 82570; 82607; 82728; 82746; 83036; 83540; 83550; 84443; 85027

== ENCOUNTER → 2020-03-26 09:17 | Outpatient (CLI) | payer MEDICARE, SELFPAY ==
[2020-03-26 11:23] LABS: ALB/GLOB Ratio 0.4 RATIO (0.9-2.4); AST(SGOT) 41 U/L (15-37); Alanine Aminotransfer ALT/SGPT 18 U/L (13-56); Albumin, Serum 2.4 g/dL (3.2-5.0); Alkaline Phosphatase 78 U/L (45-117); Anion Gap 1 (5-15); BUN 10 mg/dL (7-18); BUN/Creat Ratio 18.5 RATIO (10-20); Calcium,Total 8.3 mg/dL (8.5-10.1); Chloride 101 mmol/L (98-107); Creatinine, Serum 0.54 mg/dL (0.55-1.02); EST Glomerular Filtration Rate 115 mL/min (>60); Est Glom Filt Rate - Afr Amer 139 mL/min (>60); Ferritin 20 ng/mL (8-252); Globulin 5.8 g/dL (2.2-4.2); Glucose 90 mg/dL (74-106); Iron 75 ug/dL (50-170); Iron Binding Capacity,Total 281 ug/dL (250-450); Potassium 4.1 mmol/L (3.5-5.1); Protein, Total 8.2 g/dL (6.4-8.2); Sodium Level 140 mmol/L (136-145)
[2020-03-26 11:33] LABS: Hemoglobin 9.9 g/dL (12.0-15.0); Mean Corpuscular Hgb 28.8 pg (27.0-32.0); Mean Corpuscular Volume 95.9 fL (81-99); Mean Platelet Vol. 10.6 fl (6.2-12.0); Platelet Count 193 K/mm3 (150-450); RBC Distribution Width CV 15.7 % (11.6-14.6); RBC Distribution Width SD 55.8 fl (35.1-43.9); Red Blood Count 3.44 M/mm3 (4.2-5.4); White Blood Count 4.5 K/mm3 (4.4-11.0)
[2020-03-26 11:54] LABS: Amphetamine Urine VISTA NEGATIVE (<1000 ng/mL); Barbiturate Urine VISTA NEGATIVE (< 200 ng/mL); Benzodiazepine Urine VISTA POSITIVE (< 200 ng/mL); Cocaine Urine VISTA NEGATIVE (< 300 ng/mL); Ecstacy Urine VISTA NEGATIVE (< 500 ng/mL); Methadone Urine VISTA NEGATIVE (< 300 ng/mL); PCP Urine VISTA NEGATIVE (< 25 ng/mL); THC Urine VISTA NEGATIVE (< 50 ng/mL); Vista UDS pH Range 5
[2020-03-26 12:20] LABS: Hemoglobin A1c 5.4 % (3.8-5.6)
== END ==
PROVIDERS: PCP Internal Medicine; Visit Provider Internal Medicine
DX: Z79.899 Other long term (current) drug therapy (principal); E11.9 Type 2 diabetes mellitus without complications; I10 Essential (primary) hypertension; D64.9 Anemia, unspecified
CPT/HCPCS: 36415; 80053; 80307; 82728; 83036; 83540; 83550; 85027

== ENCOUNTER → 2020-07-24 07:47 | Outpatient (CLI) | payer MEDICARE, SELFPAY ==
[2020-07-24 10:24] LABS: Hematocrit 32.5 % (37-47); Hemoglobin 9.7 g/dL (12.0-15.0); Mean Corp Hgb Conc 29.8 g/dL (32-36); Mean Corpuscular Hgb 28.5 pg (27.0-32.0); Mean Corpuscular Volume 95.6 fL (81-99); Mean Platelet Vol. 10.1 fl (6.2-12.0); Platelet Count 157 K/mm3 (150-450); RBC Distribution Width CV 18.2 % (11.6-14.6); RBC Distribution Width SD 64.5 fl (35.1-43.9); White Blood Count 4.7 K/mm3 (4.4-11.0)
[2020-07-24 10:57] LABS: Vitamin D,25 Hydroxy 42.4 ng/mL
[2020-07-24 11:06] LABS: ALB/GLOB Ratio 0.4 RATIO (0.9-2.4); AST(SGOT) 24 U/L (15-37); Alanine Aminotransfer ALT/SGPT 13 U/L (13-56); Albumin, Serum 2.2 g/dL (3.2-5.0); Alkaline Phosphatase 63 U/L (45-117); Anion Gap 2 (5-15); BUN 9 mg/dL (7-18); Calcium,Total 8.7 mg/dL (8.5-10.1); Chloride 99 mmol/L (98-107); Creatinine, Serum 0.53 mg/dL (0.55-1.02); EST Glomerular Filtration Rate 118 mL/min (>60); Est Glom Filt Rate - Afr Amer 143 mL/min (>60); Globulin 5.8 g/dL (2.2-4.2); Glucose 83 mg/dL (74-106); Potassium 3.9 mmol/L (3.5-5.1); Sodium Level 139 mmol/L (136-145); T4 Free Direct 1.29 ng/dL (0.76-1.46); Thyroid Stim Hormone (TSH) 3.73 uIU/mL (0.358-3.74)
[2020-07-25 16:08] LABS: PROEL- A/G Ratio 0.5 (0.7-1.7); PROEL- Albumin 2.5 g/dL (2.9-4.4); PROEL- Alpha-1 Globulin 0.3 g/dL (0.0-0.4); PROEL- Alpha-2 Globulin 0.6 g/dL (0.4-1.0); PROEL- Beta Globulin 1.7 g/dL (0.7-1.3); PROEL- Gamma Globulin 2.2 g/dL (0.4-1.8); PROEL- Globulin, Total 4.9 g/dL (2.2-3.9); PROEL- TOTAL PROTEIN 7.4 g/dL (6.0-8.5)
[2020-07-28 16:08] LABS: PROELU- Alpha-1-Globulin,Ur 5.9 % (.); PROELU- Alpha-2-Globulin,Ur 21.1 % (.); PROELU- Beta Globulin, Ur 34.6 % (.); PROELU- Gamma Globulin, Ur 16.5 % (.); Total Protein, Ur 14.2 mg/dL (Not Estab.)
== END ==
LOC: LAB 07:50
PROVIDERS: PCP Internal Medicine; Visit Provider Internal Medicine
DX: I10 Essential (primary) hypertension (principal); E88.09 Other disorders of plasma-protein metabolism, not elsewhere classified; E03.9 Hypothyroidism, unspecified; E83.51 Hypocalcemia; R77.1 Abnormality of globulin
CPT/HCPCS: 36415; 80053; 82306; 84165; 84166; 84439; 84443; 85027

== ENCOUNTER → 2020-09-29 09:05 | Outpatient (CLI) | payer MEDICARE, SELFPAY ==
[2020-09-29 10:42] LABS: Hematocrit 33.2 % (37-47); Hemoglobin 10.3 g/dL (12.0-15.0); Mean Corpuscular Hgb 29.8 pg (27.0-32.0); Mean Platelet Vol. 9.8 fl (6.2-12.0); Platelet Count 148 K/mm3 (150-450); RBC Distribution Width CV 15.3 % (11.6-14.6); RBC Distribution Width SD 54.2 fl (35.1-43.9); Red Blood Count 3.46 M/mm3 (4.2-5.4); White Blood Count 3.9 K/mm3 (4.4-11.0)
[2020-09-29 11:11] LABS: ALB/GLOB Ratio 0.4 RATIO (0.9-2.4); AST(SGOT) 29 U/L (15-37); Alanine Aminotransfer ALT/SGPT 15 U/L (13-56); Albumin, Serum 2.4 g/dL (3.2-5.0); Alkaline Phosphatase 63 U/L (45-117); Anion Gap 2 (5-15); BUN 8 mg/dL (7-18); BUN/Creat Ratio 12.8 RATIO (10-20); Calcium,Total 8.9 mg/dL (8.5-10.1); Chloride 99 mmol/L (98-107); Creatinine, Serum 0.62 mg/dL (0.55-1.02); EST Glomerular Filtration Rate 97 mL/min (>60); Est Glom Filt Rate - Afr Amer 118 mL/min (>60); Globulin 5.5 g/dL (2.2-4.2); Glucose 84 mg/dL (74-106); Protein, Total 7.9 g/dL (6.4-8.2); Sodium Level 139 mmol/L (136-145)
[2020-09-29 11:32] LABS: Hemoglobin A1c 4.9 % (3.8-5.6)
[2020-09-30 16:08] LABS: Immunoglobulin G 2221 mg/dL (586-1602)
[2020-10-01 14:31] LABS: Immunoglobulin A 1588 mg/dL (64-422); Immunoglobulin M 115 mg/dL (26-217)
== END ==
LOC: LAB 09:07
PROVIDERS: PCP Internal Medicine; Visit Provider Internal Medicine
DX: E11.9 Type 2 diabetes mellitus without complications (principal); R77.1 Abnormality of globulin; E87.6 Hypokalemia; Z79.899 Other long term (current) drug therapy
CPT/HCPCS: 36415; 80053; 82784; 83036; 85027; 86334

== ENCOUNTER → 2020-10-01 13:26 | Outpatient (CLI) | payer MEDICARE, SELFPAY ==
[2020-10-01 14:18] LABS: Amphetamine Urine VISTA NEGATIVE (<1000 ng/mL); Barbiturate Urine VISTA NEGATIVE (< 200 ng/mL); Benzodiazepine Urine VISTA POSITIVE (< 200 ng/mL); Cocaine Urine VISTA NEGATIVE (< 300 ng/mL); Ecstacy Urine VISTA POSITIVE (< 500 ng/mL); Methadone Urine VISTA NEGATIVE (< 300 ng/mL); PCP Urine VISTA NEGATIVE (< 25 ng/mL); THC Urine VISTA NEGATIVE (< 50 ng/mL); Vista UDS pH Range 5
== END ==
LOC: LABSPEC 13:29
PROVIDERS: PCP Internal Medicine; Referring Provider Internal Medicine; Visit Provider Internal Medicine
DX: Z79.899 Other long term (current) drug therapy (principal)
CPT/HCPCS: 80307

== ENCOUNTER → 2021-01-21 09:32 | Outpatient (CLI) | payer MEDICARE, SELFPAY ==
[2021-01-21 10:54] LABS: Hematocrit 31.3 % (37-47); Hemoglobin 9.7 g/dL (12.0-15.0); Mean Corpuscular Hgb 29.1 pg (27.0-32.0); Mean Platelet Vol. 10.5 fl (6.2-12.0); Platelet Count 120 K/mm3 (150-450); RBC Distribution Width CV 18.6 % (11.6-14.6); RBC Distribution Width SD 64.5 fl (35.1-43.9); Red Blood Count 3.33 M/mm3 (4.2-5.4); White Blood Count 5.7 K/mm3 (4.4-11.0)
[2021-01-21 11:26] LABS: ALB/GLOB Ratio 0.3 RATIO (0.9-2.4); AST(SGOT) 38 U/L (15-37); Alanine Aminotransfer ALT/SGPT 15 U/L (13-56); Albumin, Serum 1.7 g/dL (3.2-5.0); Alkaline Phosphatase 64 U/L (45-117); Anion Gap 2 (5-15); BUN 7 mg/dL (7-18); BUN/Creat Ratio 12.5 RATIO (10-20); Calcium,Total 8.5 mg/dL (8.5-10.1); Chloride 103 mmol/L (98-107); Creatinine, Serum 0.56 mg/dL (0.55-1.02); EST Glomerular Filtration Rate 110 mL/min (>60); Est Glom Filt Rate - Afr Amer 133 mL/min (>60); Free T3 1.9 pg/mL (2.18-3.98); Globulin 5.6 g/dL (2.2-4.2); Glucose 82 mg/dL (74-106); Potassium 3.9 mmol/L (3.5-5.1); Protein, Total 7.3 g/dL (6.4-8.2); Sodium Level 136 mmol/L (136-145); T4 Free Direct 1.43 ng/dL (0.76-1.46); Thyroid Stim Hormone (TSH) 5.13 uIU/mL (0.358-3.74)
== END ==
LOC: LAB 09:34
PROVIDERS: PCP Internal Medicine; Visit Provider Internal Medicine
DX: E03.9 Hypothyroidism, unspecified (principal); D64.9 Anemia, unspecified; I10 Essential (primary) hypertension; Z79.899 Other long term (current) drug therapy
CPT/HCPCS: 36415; 80053; 84439; 84443; 84481; 85027

== ENCOUNTER → 2021-01-26 12:59 | Outpatient (CLI) | payer MEDICARE, SELFPAY | PROVIDERS: PCP Internal Medicine; Referring Provider Internal Medicine; Visit Provider Internal Medicine | DX: E03.9 Hypothyroidism, unspecified (principal); I10 Essential (primary) hypertension; D64.9 Anemia, unspecified; Z79.899 Other long term (current) drug therapy ==

== ENCOUNTER 2021-04-30 14:30 | Emergency (ER) | payer MEDICARE, SELFPAY ==
--- NOTE | 2021-04-30 14:33 | CM.ED ---
DIOMEDES received voice mail from Antonio, patient's insurance verification rep. She said patient is living in an unsafe environment and is scheduled to go to [facility]. Antonio's voice mail said that she is calling now and on the way to the house. DIOMEDES called Kassandra at [facility]. Kassandra said that patient had completed all the paperwork for admission and ran the insurance and got authorization on Tuesday however, now they would probably need to resubmit for insurance authorization. DIOMEDES will update Kassandra regarding patient's status. Except for the insurance authorization Kassandra said that patient is all set. DIOMEDES called patient's insurance verification rep ([phone]) . Antonio said that she is at patient's house currently and they are loading patient up to bring to the ED. Antonio said that patient is 80 years old and bedridden. Resides with her son. Kranthi is her PCP. [facility]. K[facility]andra is not available however, social media specialist left message requesting that Kassandra resubmit for patient's preauthorization from insurance so when patient is discharged from the hospital the precert will be completed. [place] at [facility] said that she would advise Kassandra. DIOMEDES updated transplant case manager, Phoebe, in the ED. Andria BUCHANAN
[2021-04-30 14:34] VITALS: BP 148/94; PULSE 86; TEMP 36.8; O2SAT 100; BMI 29.2
--- NOTE | 2021-04-30 15:11 | EX.ED.DYSGE1 ---
HPI History of Present Illness Chief Complaint: General Illness Narrative Narrative: 80-year-old female presenting with request for placement. She states she supposed to go to [facility]. Her care clinical social work aide has been working on this and she did qualify, but there was some difficulty with her getting accepted due to the timeline. Patient states she lives at home with her son and currently needs to be placed due to poor living quality at her home. She states this is due to a lot of bugs which are like roaches at her house. She states her son is going to live in the car with the dog and [facility] [place] Patient arrives with multiple bags and food to be placed. She does not have any complaints. [facility] Medical History Cancer COPD (chronic obstructive pulmonary disease) Diabetes Hepatitis Migraines Non-smoker On home oxygen therapy Osteoporosis Home Medications Durlera 2 puff BID 07/25/15 [History Last Taken Unknown] Loratadine 1 tab BID 07/25/15 [History Last Taken Unknown] Mometasone Furoate 07/25/15 [History Last Taken Unknown] Omeprazole [Prilosec] 40 mg PO DAILY 07/25/15 [History Last Taken Unknown] Potassium Chloride [Klor-Con M20] 20 meq QHS 07/25/15 [History Last Taken Unknown] Potassium Chloride [Klor-Con M20] 40 meq DAILY 07/25/15 [History Last Taken Unknown] Super B Maxi Complex Caplet 2 tab DAILY 07/25/15 [History Last Taken Unknown] Triamcinolone 0.1% Cream [Kenalog] 1 applic TOPICAL TID 07/25/15 [History Last Taken Unknown] Xopenex 2 puff Q4H PRN PRN 07/25/15 [History Last Taken Unknown] benzonatate 100 mg PO TID PRN PRN 07/25/15 [History Last Taken Unknown] epinephrine 0.3 mg X1 PRN 07/25/15 [History Last Taken Unknown] furosemide 80 mg PO DAILY 07/25/15 [History Last Taken Unknown] gabapentin 900 mg PO TIDCM 07/25/15 [History Last Taken Unknown] hydrocodone-acetaminophen 1 tab PO Q6H PRN PRN 07/25/15 [History Last Taken Unknown] levothyroxine 125 mcg PO DAILY 07/25/15 [History Last Taken Unknown] lisinopril 2.5 mg PO DAILY 07/25/15 [History Last Taken Unknown] lorazepam 0.5 mg PO DAILY PRN PRN 07/25/15 [History Last Taken Unknown] metformin 500 mg PO BIDCM 07/25/15 [History Last Taken Unknown] niacin 500 mg PO DAILY 07/25/15 [History Last Taken Unknown] oxycodone [Roxicodone] 1 - 2 tab PO TID PRN 07/25/15 [History Last Taken Unknown] sertraline 100 mg PO BID 07/25/15 [History Last Taken Unknown] trazodone 150 mg PO QHS 07/25/15 [History Last Taken Unknown] zolpidem [Ambien] 10 mg PO QHS 07/25/15 [History Last Taken Unknown] cephalexin 500 mg PO Q6 #30 capsule 10/01/15 [Rx Last Taken Unknown] miconazole nitrate [Lotrimin AF] 90 g TP BID #1 powder 10/01/15 [Rx Last Taken Unknown] Allergy/AdvReac Type Severity Reaction Status Date / Time azithromycin [From Zithromax] Allergy Unknown Verified 04/30/21 14:39 fentanyl Allergy Unknown Verified 04/30/21 14:39 latex Allergy Unknown Verified 04/30/21 14:39 Penicillins Allergy Unknown Verified 04/30/21 14:39 Sulfa (Sulfonamide Allergy Unknown Verified 04/30/21 14:39 Antibiotics) Surgical History History of appendectomy Social History Smoking Status: Former smoker ROS ROS ED Constitutional Constitutional ED: Denies chills or fever(s) Eyes Eyes: Denies blurry vision or diplopia ENT ENT ED: Denies rhinorrhea or sore throat Cardiovascular Cardiovascular: Denies chest pain or palpitations Respiratory/Chest Respiratory/Chest: Denies cough or dyspnea Gastrointestinal Gastrointestinal: Denies abdominal pain, nausea or vomiting Genitourinary Genitourinary ED: Denies dysuria or hematuria Musculoskeletal Musculoskeletal: Denies arthralgias or myalgias Integumentary Denies abscess or rash Neurologic Neurologic: Denies headache(s), paresthesias or weakness Psychiatric Psychiatric: Denies anxiety or depression EXAM Physical Exam Const Vital Signs: 04/30/21 14:34 04/30/21 14:38 04/30/21 16:32 Temperature 98.3 F Temperature Source Oral Pulse Rate 86 82 Respiratory Rate 18 Respiratory Effort Normal Non-Labored Respiratory Pattern Normal Blood Pressure 148/94 H 126/73 H Blood Pressure Mean 112 90 Pulse Ox 100 100 Oxygen Delivery Method Nasal Cannula Nasal Cannula Oxygen Flow Rate (L/min) 4 4 Positive well nourished General Appearance ED: NAD HEENT Reports moist mucous membranes Negative for trauma Eyes PERRL and EOMs intact bilaterally Resp normal respiratory effort and clear to auscultation bilaterally Cardio regular rate and regular rhythm GI normal to inspection, nondistended, normoactive bowel sounds Extremity normal to inspection General Extremety ED: Negative for edema or tenderness General Extremity: Negative for edema Psych mental status grossly normal Skin no rashes or lesions noted MDM MDM MDM Narrative Medical decision making narrative: Patient with no complaints presenting to be placed in [facility]. I spoke with the clinical social work aide and she states that all she needs a Covid swab to be placed. Apparently she is already qualified. Covid testing will be done and patient will be transported to [facility]. Impression: 1. Request for long-term placement Discharge Plan Triage Chief Complaint: General Illness ED Provider: Shahab Cabezas Dx/Rx/DC Orders Prescriptions: No Action metformin 500 MG tablet 500 mg PO BIDCM RF: 0 gabapentin 600 MG tablet 900 mg PO TIDCM RF: 0 hydrocodone-acetaminophen 1 TABLET tablet 1 tab PO Q6H PRN PRN (Reason: Pain) RF: 0 sertraline 100 MG tablet 100 mg PO BID RF: 0 lorazepam 0.5 MG tablet 0.5 mg PO DAILY PRN PRN (Reason: Anxiety) RF: 0 furosemide 80 MG tablet 80 mg PO DAILY RF: 0 benzonatate 100 MG capsule 100 mg PO TID PRN PRN (Reason: Cough) RF: 0 trazodone 150 MG tablet 150 mg PO QHS RF: 0 levothyroxine 125 MCG tablet 125 mcg PO DAILY RF: 0 niacin 500 MG tablet 500 mg PO DAILY RF: 0 epinephrine 0.3 MG syringe 0.3 mg X1 PRN (Reason: Anaphylaxis) RF: 0 zolpidem [Ambien] 10 MG tablet 10 mg PO QHS RF: 0 lisinopril 2.5 MG tablet 2.5 mg PO DAILY RF: 0 oxycodone [Roxicodone] 5 MG tablet 1 - 2 tab PO TID PRN (Reason: Pain) RF: 0 Durlera 2 puff BID RF: 0 Loratadine 1 tab BID RF: 0 Mometasone Furoate RF: 0 Omeprazole [Prilosec] 40 MG capsule 40 mg PO DAILY RF: 0 Potassium Chloride [Klor-Con M20] 20 MEQ Tab.Er.Prt 20 meq QHS RF: 0 Potassium Chloride [Klor-Con M20] 20 MEQ Tab.Er.Prt 40 meq DAILY RF: 0 Super B Maxi Complex Caplet 2 tab DAILY RF: 0 Triamcinolone 0.1% Cream [Kenalog] 1 APPLIC Tube 1 applic topical TID RF: 0 Xopenex 2 puff Q4H PRN PRN (Reason: Sob &/Or Wheezing) RF: 0 cephalexin 500 MG capsule 500 mg PO Q6 Qty: 30 RF: 0 miconazole nitrate [Lotrimin AF] 90 GM Powder 90 g TP BID Qty: 1 RF: 1 Primary Care Provider: Sonia Crisostomo Referrals: Sonia Crisostomo MD [Primary Care Provider] - Disposition Disposition: [facility] Discharge Location: [facility]
--- NOTE | 2021-04-30 15:41 | CM.ED ---
Addendum entered by Andria Armstrong 04/30/21 15:46: DIOMEDES called patient's [facility] case management social worker, Antonio, and updated her that patient will be going to [facility]. Original Note: Diomedes faxed face sheet, squad report and note to [facility]. Byron (not Kassandra as previously reported) stated she spoke to corporate office and patient's authorization is good and patient is good to come. Byron said that all paperwork is done. Byron completed the PASSR. Byron said that they would like a covid test but do not need any other lab work. Diomedes updated and RN. Plan: [facility]. Per [facility] patient is good to come. Andria BUCHANAN
[2021-04-30 16:32] VITALS: BP 126/73; PULSE 82; RESP 18; O2SAT 100
== END 2021-04-30 19:02 | disposition skilled nursing facility (03) ==
PROVIDERS: Emergency Provider Student in an Organized Health Care Education/Training Program; PCP Internal Medicine; Visit Provider Student in an Organized Health Care Education/Training Program
DX: Z04.89 Encounter for examination and observation for other specified reasons (principal); J44.9 Chronic obstructive pulmonary disease, unspecified; Z87.891 Personal history of nicotine dependence; Z99.81 Dependence on supplemental oxygen
CPT/HCPCS: 87426; 99285; A4216